=== PATIENT | male | born 1975 | race Caucasian/White ===

== ENCOUNTER 2018-06-12 22:10 | Observation (INO) ==
[2018-06-12] MEDS ORDERED: Ondansetron 4 MG/2 ML VIAL IVP ONE (22:28)
[2018-06-12] MEDS ORDERED: 0.9 % Sodium Chloride 1,000 ML IVC ONE (22:28)
[2018-06-12 22:57] LABS: Bilirubin,Urine Negative (Negative); Blood,Urine Negative (Negative); Clarity,Urine Clear (Clear); Color,Urine Yellow (Yellow); Glucose,Urine (UA) >=1000 mg/dL (Normal); Ketones,Urine 80 mg/dL (Negative); Leukocyte Esterase,Urine Negative (Negative); Nitrite,Urine Negative (Negative); PH,Urine 5.5 pH Units (5.0-8.0); Protein,Urine Trace mg/dL (Neg-Trace); Specific Gravity,Urine > 1.030 (1.010-1.025); Urobilinogen,Urine Normal (Normal)
[2018-06-12 22:59] LABS: Bacteria,Urine None Seen per hpf (None-Few); Hyaline Casts,Urine None Seen per lpf (None-Few); RBC,Urine 0-3 per hpf (0-3); Squamous Epithelial Cell,Urine Many per lpf (None-Few); WBC,Urine 0-3 per hpf (0-3)
[2018-06-12 23:01] LABS: Basophils % 0.2 %; Hematocrit 44.1 % (37.5-50.1); Hemoglobin 14.8 g/dL (12.9-16.9); Immature Granulocytes % 0.4 % (0-4); Mean Corpuscular HGB Conc 33.6 g/dL (31.6-35.5); Mean Corpuscular Hemoglobin 28.6 pg (28.0-33.3); Mean Corpuscular Volume 85.3 fL (83.0-100.0); Mean Platelet Volume 10.6 fL (9.4-12.4); Monocytes # 0.6 K/mcL (0.0-1.3); Monocytes % 3.9 %; Neutrophils # 12.5 K/mcL (1.6-8.9); Platelet Count 201 K/mcL (140-400); Red Blood Count 5.17 M/mcL (4.19-5.50); Red Cell Distribution Width 13.3 % (11.5-14.5); Segmented Neutrophils % 88.5 %
--- NOTE | 2018-06-12 23:12 | Emergency Department Note ---
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: with fpc use Qualified Code(s): E11.65 - Type 2 diabetes mellitus with hyperglycemia Nausea & vomiting Qualifiers: Vomiting type: unspecified Vomiting Intractability: unspecified Qualified Code( s): R11.2 - Nausea with vomiting, unspecified Abdominal pain Qualifiers: Abdominal location: unspecified location Qualified Code(s): R10.9 - Unspecified abdominal pain Disposition: Admitted As Inpatient Condition: Good Referrals: Lobo Tyler MD [Primary Care Provider] - Forms: ED Satisfaction Letter, Work/School Release Time of Disposition: 04:55 General Adult HPI - General Chief complaint: ED Abdominal Pain Stated complaint: NV Time Seen by Provider: 06/12/18 22:27 Source: patient, EMS Mode of arrival: EMS Limitations: no limitations Nursing Notes Reviewed: Yes Vital Signs Reviewed: Yes - History of Present Illness HPI Narrative: 42-year-old male history of insulin-dependent diabetes mellitus presents emergency department via EMS for nausea and vomiting. Patient states for the past 24 hours he has been very nauseated unable to keep anything down such as Jell-O. He had multiple episodes of vomiting after attempting to eat Jell-O. Today he has not been able keep anything down. Denies any fever cough or congestion. Denies any chest pain or shortness of breath. He is complaining of some sharp abdominal pain mostly in the epigastric region. He has not taken any insulin since yesterday afternoon. He denies any urinary symptoms. No prior abdominal surgeries Pain Scale: 7 - Related Data Home Medications Medication Instructions Recorded Confirmed Ergocalciferol (VITAMIN D2) 50,000 unit PO 2XW 08/07/15 09/15/16 [Vitamin D2 (50,000 UNIT)] Hypromellose [Artificial Tears] 1 drop BOTH EYES BID 08/07/15 09/15/16 Lisinopril [Zestril] 5 mg PO DAILY 08/07/15 09/15/16 Metformin HCl [Glucophage] 1,000 mg PO TID 08/07/15 09/15/16 Mupirocin [Bactroban Oint] 1 appl TP BID 08/07/15 09/15/16 Pioglitazone [Actos] 45 mg PO DAILY 08/07/15 09/15/16 Empagliflozin [Jardiance] 10 mg PO DAILY 05/12/16 09/15/16 Glimepiride [Amaryl] 4 mg PO BID 05/12/16 09/15/16 Insulin Lispro Protamin/Lispro 20 unit SQ BIDWM 05/12/16 09/15/16 [Humalog Mix 75-25 Kwikpen] TraZODone 50 mg PO HS 05/12/16 09/15/16 acetaZOLAMIDE [Diamox] 250 mg PO DAILY 05/12/16 09/15/16 Inulin/Chromium Picolinate [Fiber 1 - 2 each PO DAILY 09/15/16 09/15/16 Gummies] Lubiprostone [Amitiza] 1 cap PO BID 09/15/16 09/15/16 Simvastatin [Zocor] 10 mg PO DAILY 09/15/16 09/15/16 Previous Rx's Medication Instructions Recorded Clindamycin [Cleocin] 150 mg PO Q6HR #8 capsule 09/15/16 Hydrocodone/Acetaminophen [[place] 1 tab PO Q6H PRN #20 tab 09/15/16 5-325 Tablet] Phenazopyridine HCl [Pyridium] 200 mg PO TIDAC #10 tab 05/24/17 Allergies Allergy/AdvReac Type Severity Reaction Status Date / Time liraglutide [From Victoza] AdvReac Vomiting Verified 06/12/18 22:15 All systems ED: reviewed and negative except as stated. Review of Systems: As Per HPI Constitutional: Denies: fever, chills ENT ED: Denies: congestion Cardiovascular: Denies: chest pain Respiratory: Denies: cough, dyspnea Gastrointestinal: Reports: abdominal pain, nausea, vomiting Genitourinary: Denies: urgency, dysuria Musculoskeletal: Denies: back pain Integumentary: Denies: rash, abrasion Neurological: Denies: headache Past Medical History - Past Medical History Attestation: Yes The following information was validated with the patient. Source: patient Medical history: Reports: diabetes, hyperlipidemia, hypertension, other Surgical history: Reports: other Psychiatric history: Reports: no psych history - Social History Smoking Status: Never smoker Smokeless Tobacco Status: No Alcohol use: Reports: occasionally Drug use: Reports: none Physical Exam - General Limitations: physical limitation (Hard of hearing) General appearance: alert, in no apparent distress - Head Head exam: atraumatic, normocephalic, normal inspection - Eye Eye exam: Present: normal appearance, PERRL, EOMI - ENT ENT exam: normal exam, normal oropharynx, mucous membranes moist - Neck Neck exam: Present: normal inspection, full ROM, trachea midline - Chest Chest inspection: Present: normal inspection, symmetric chest wall rise - Respiratory Respiratory exam: Present: normal lung sounds bilaterally - Cardiovascular Cardiovascular exam: Present: normal rhythm, tachycardia, normal heart sounds - Abdominal Exam Abdominal exam: Present: soft, tenderness, normal bowel sounds. Absent: Non- Tender, distention, guarding, rebound, rigidity, Castrejon's sign Abdominal tenderness: Present: epigastrium. Absent: RUQ - Extremities Exam Extremities exam: Present: normal inspection, full ROM. Absent: tenderness, pedal edema - Back Exam Back exam: Present: normal inspection, full ROM. Absent: tenderness, CVA tenderness (R), CVA tenderness (L) - Neurological Exam Neurological exam: Present: alert, oriented X3 - Psychiatric Psychiatric exam: Present: normal affect, normal mood - Skin Skin exam: Present: warm, dry, intact, normal color. Absent: rash, cyanosis, diaphoresis Course Course Narrative: Patient presents with nausea vomiting and abdominal pain for past 4 hours. Unable to keep anything down recently. He is afebrile. Tachycardic on examination. He appears in mild distress spinning up water that he recently drank. His abdomen is soft and mildly tender in epigastric region but nondistended nonrigid. Denies alcohol use. Has not take his insulin in the past 24 hours. At this time laboratory evaluation with IV fluids and symptom control with Zofran. - Reevaluation(s) Reevaluation #1: Patient is hyperglycemic 433. There is no acidosis. Anionic gap is 12 a normal. There are ketones in the urine. He continues to be nauseated but has improved with the medications. His tachycardia is improving with fluids. Insulin administered. Will recheck his glucose. Patient is not in DKA at this moment. Will reevaluate the patient prior to final disposition. Time: 23:55 Reevaluation #2: Patients tolerating oral intake. He able to drink soda and eat Jell-O. Further evaluation shows elevated serum ketones. A VBG was also ordered with a pH of 7.35. This may be early findings of a mild diabetic ketoacidosis which he currently does not appear to be in at this time. He has received 2 L of normal saline in his nausea is improved with Zofran but remains tachycardic. His abdomen on repeat evaluation remain soft nondistended nonrigid. Leukocytosis on his laboratory workup is likely a stress response due to his vomiting. Will recheck glucose and heart rate after fluids. Time: 01:23 Reevaluation #3: Patient continues to be tachycardic despite fluid resuscitation. He does have some intermittent nausea. He has tolerated PO. A recheck of his glucose has come up to 339. Given that he lives at home by himself with the cute anemia and persistent tachycardia have recommended for observation and admission further management treatment. Patients in agreement with this plan. Time: 04:08 - Consultations Consultation #1: Spoke with on-call hospitalist mouna Guzman to admit for tachycardia, hyperglycemia, N/V. No further orders at this time Time: 04:55 Vital Signs Temperature 97.9 F 06/12/18 22:13 Pulse Rate 122 06/12/18 22:13 Respiratory Rate 14 06/12/18 22:13 Blood Pressure 142/92 06/12/18 22:13 O2 Sat by Pulse Oximetry 98 06/12/18 22:13 Temperature 97.9 F 06/12/18 22:13 Pulse Rate 113 06/13/18 02:37 Respiratory Rate 18 06/13/18 02:37 Blood Pressure 118/74 06/13/18 02:37 O2 Sat by Pulse Oximetry 95 06/13/18 02:37 Oxygen Delivery Oxygen Delivery Room Air Medical Decision Making - MDM Narrative Medical decision making narrative: Patient was discussed with my attending physician who agrees with ED management and final disposition. They independently evaluated the patient. Please refer to their attestation to this encounter for additional information. This note was generated by [employer] voice recognition software and as a result grammatical or spelling errors may occur using this program. - Medical Records Medical records reviewed: Yes I reviewed the patient's medical records. - Lab Data Lab results reviewed: Yes I reviewed the patient's lab results. Result diagrams: 06/12/18 22:28 06/12/18 22:28 Lab Results 06/12/18 06/12/18 06/12/18 Range/Units 22:28 22:28 22:37 WBC 14.1 H (4.3-11.1) K/mcL RBC 5.17 (4.19-5.50) M/mcL Hgb 14.8 (12.9-16.9) g/dL Hct 44.1 (37.5-50.1) % MCV 85.3 (83.0-100.0) fL MCH 28.6 (28.0-33.3) pg MCHC 33.6 (31.6-35.5) g/dL RDW 13.3 (11.5-14.5) % Plt Count 201 (140-400) K/mcL MPV 10.6 (9.4-12.4) fL Immature Gran % 0.4 (0-4) % Seg Neutrophils % 88.5 % Lymphocytes % 7.0 % Monocytes % 3.9 % Eosinophils % 0.0 % Basophils % 0.2 % Neutrophils # 12.5 H (1.6-8.9) K/mcL Lymphocytes # 1.0 (0.6-4.6) K/mcL Monocytes # 0.6 (0.0-1.3) K/mcL Eosinophils # 0.0 (0.0-0.6) K/mcL Basophils # 0.0 (0.0-0.2) K/mcL VBG pH (7.32-7.42) pH Units VBG pCO2 (41-51) mmHg VBG pO2 (25-50) mmHg VBG HCO3 (21-27) mEq/L Sodium 136 (136-145) mEq/L Potassium 4.7 (3.5-5.1) mEq/L Chloride 100 (98-107) mEq/L Carbon Dioxide 24 (23-29) mEq/L BUN 17 (6-20) mg/dL Creatinine 0.96 (0.70-1.30) mg/dL Est GFR ( Amer) > 60 (> 60) Est GFR (Non-Af Amer) > 60 (> 60) BUN/Creatinine Ratio 18 (6-26) Glucose 433 H (70-105) mg/dL Calculated Osmolality 302 H (280-300) Calcium 9.3 (8.6-10.3) mg/dL Total Bilirubin 0.7 (0.3-1.0) mg/dL AST 37 (13-39) Units/L ALT 39 (7-52) Units/L Alkaline Phosphatase 59 (34-104) Units/L Serum Total Protein 7.5 (6.4-8.9) g/dL Albumin 4.3 (3.5-5.7) g/dL Globulin 3.2 (2.4-3.5) g/dL Albumin/Globulin Ratio 1.3 (1.1-2.2) Lipase 22 (11-82) Units/L Beta-Hydroxybutyric Acd (0.02-0.27) mmol/L Urine Color Yellow (Yellow) Urine Clarity Clear (Clear) Urine pH 5.5 (5.0-8.0) pH Units Ur Specific [place] > 1.030 H (1.010-1.025) Urine Protein Trace (Neg-Trace) mg/dL Urine Glucose (UA) >=1000 H (Normal) mg/dL Urine Ketones 80 H (Negative) mg/dL Urine Blood Negative (Negative) Urine Nitrite Negative (Negative) Urine Bilirubin Negative (Negative) Urine Urobilinogen Normal (Normal) mg/dL Ur Leukocyte Esterase Negative (Negative) Urine Microscopic RBC 0-3 (0-3) per hpf Urine Microscopic WBC 0-3 (0-3) per hpf Ur Squamous Epith Cells Many H (None-Few) per lpf Urine Bacteria None Seen (None-Few) per hpf Hyaline Casts None Seen (None-Few) per lpf Ur Culture Indicated? NO (NO) 06/13/18 06/13/18 Range/Units 01:03 22:28 WBC (4.3-11.1) K/mcL RBC (4.19-5.50) M/mcL Hgb (12.9-16.9) g/dL Hct (37.5-50.1) % MCV (83.0-100.0) fL MCH (28.0-33.3) pg MCHC (31.6-35.5) g/dL RDW (11.5-14.5) % Plt Count (140-400) K/mcL MPV (9.4-12.4) fL Immature Gran % (0-4) % Seg Neutrophils % % Lymphocytes % % Monocytes % % Eosinophils % % Basophils % % Neutrophils # (1.6-8.9) K/mcL Lymphocytes # (0.6-4.6) K/mcL Monocytes # (0.0-1.3) K/mcL Eosinophils # (0.0-0.6) K/mcL Basophils # (0.0-0.2) K/mcL VBG pH 7.35 (7.32-7.42) pH Units VBG pCO2 47 (41-51) mmHg VBG pO2 94 H (25-50) mmHg VBG HCO3 26 (21-27) mEq/L Sodium (136-145) mEq/L Potassium (3.5-5.1) mEq/L Chloride (98-107) mEq/L Carbon Dioxide (23-29) mEq/L BUN (6-20) mg/dL Creatinine (0.70-1.30) mg/dL Est GFR ( Amer) (> 60) Est GFR (Non-Af Amer) (> 60) BUN/Creatinine Ratio (6-26) Glucose (70-105) mg/dL Calculated Osmolality (280-300) Calcium (8.6-10.3) mg/dL Total Bilirubin (0.3-1.0) mg/dL AST (13-39) Units/L ALT (7-52) Units/L Alkaline Phosphatase (34-104) Units/L Serum Total Protein (6.4-8.9) g/dL Albumin (3.5-5.7) g/dL Globulin (2.4-3.5) g/dL Albumin/Globulin Ratio (1.1-2.2) Lipase (11-82) Units/L Beta-Hydroxybutyric Acd > 2.00 H (0.02-0.27) mmol/L Urine Color (Yellow) Urine Clarity (Clear) Urine pH (5.0-8.0) pH Units Ur Specific [place] (1.010-1.025) Urine Protein (Neg-Trace) mg/dL Urine Glucose (UA) (Normal) mg/dL Urine Ketones (Negative) mg/dL Urine Blood (Negative) Urine Nitrite (Negative) Urine Bilirubin (Negative) Urine Urobilinogen (Normal) mg/dL Ur Leukocyte Esterase (Negative) Urine Microscopic RBC (0-3) per hpf Urine Microscopic WBC (0-3) per hpf Ur Squamous Epith Cells (None-Few) per lpf Urine Bacteria (None-Few) per hpf Hyaline Casts (None-Few) per lpf Ur Culture Indicated? (NO) - EKG Data EKG #1 EKG attestation: Yes I reviewed and interpreted this EKG. EKG results narrative: EKG performed 516 sinus tachycardia 115 beats per minute, normal axis, no ST elevation or depression, intervals within normal limits SD interval 157, QRS 81 , QT 299. No acute ischemic changes.
[2018-06-12 23:26] LABS: Alanine Aminotransferase 39 Units/L (7-52); Albumin 4.3 g/dL (3.5-5.7); Albumin/Globulin Ratio 1.3 (1.1-2.2); Alkaline Phosphatase 59 Units/L (34-104); Aspartate Amino Transferase 37 Units/L (13-39); BUN/Creatinine Ratio 18 (6-26); Bilirubin,Total 0.7 mg/dL (0.3-1.0); Blood Urea Nitrogen 17 mg/dL (6-20); Calcium 9.3 mg/dL (8.6-10.3); Carbon Dioxide 24 mEq/L (23-29); Chloride 100 mEq/L (98-107); Globulin 3.2 g/dL (2.4-3.5); Glucose 433 mg/dL (70-105); Lipase 22 Units/L (11-82); Osmolality,Calculated 302 (280-300); Potassium 4.7 mEq/L (3.5-5.1); Sodium 136 mEq/L (136-145); Total Protein 7.5 g/dL (6.4-8.9); eGFR For Non-African Americans > 60 (> 60)
[2018-06-12] MEDS ORDERED: Insulin Human Regular 10 UNIT in 0.9 % Sodium Chloride 10 ML IV ONE (23:43)
[2018-06-13] MEDS ORDERED: 0.9 % Sodium Chloride 1,000 ML ONE (00:43)
[2018-06-13] MEDS ORDERED: 0.9 % Sodium Chloride 1,000 ML IVC ONE ×2 (00:44→02:15)
[2018-06-13 01:06] LABS: VBG HCO3 26 mEq/L (21-27); VBG PCO2 47 mmHg (41-51); VBG PH 7.35 pH Units (7.32-7.42); VBG PO2 94 mmHg (25-50)
--- NOTE | 2018-06-13 01:51 | Emergency Department Note ---
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 Qualified Code(s): E11.65 - Type 2 diabetes mellitus with hyperglycemia Nausea & vomiting Qualifiers: Vomiting type: unspecified Vomiting Intractability: unspecified Qualified Code( s): R11.2 - Nausea with vomiting, unspecified Abdominal pain Qualifiers: Abdominal location: unspecified location Qualified Code(s): R10.9 - Unspecified abdominal pain Disposition: Admitted As Inpatient Condition: Good Referrals: Lobo Tyler MD [Primary Care Provider] - Forms: ED Satisfaction Letter, Work/School Release General Adult HPI - General Chief complaint: ED Abdominal Pain Stated complaint: NV Time Seen by Provider: 06/12/18 22:27 Source: patient, EMS Mode of arrival: EMS Limitations: physical limitation (Hard of hearing) Nursing Notes Reviewed: Yes Vital Signs Reviewed: Yes - History of Present Illness Pain Scale: 7 - Related Data Home Medications Medication Instructions Recorded Confirmed Ergocalciferol (VITAMIN D2) 50,000 unit PO 2XW 08/07/15 09/15/16 [Vitamin D2 (50,000 UNIT)] Hypromellose [Artificial Tears] 1 drop BOTH EYES BID 08/07/15 09/15/16 Lisinopril [Zestril] 5 mg PO DAILY 08/07/15 09/15/16 Metformin HCl [Glucophage] 1,000 mg PO TID 08/07/15 09/15/16 Mupirocin [Bactroban Oint] 1 appl TP BID 08/07/15 09/15/16 Pioglitazone [Actos] 45 mg PO DAILY 08/07/15 09/15/16 Empagliflozin [Jardiance] 10 mg PO DAILY 05/12/16 09/15/16 Glimepiride [Amaryl] 4 mg PO BID 05/12/16 09/15/16 Insulin Lispro Protamin/Lispro 20 unit SQ BIDWM 05/12/16 09/15/16 [Humalog Mix 75-25 Kwikpen] TraZODone 50 mg PO HS 05/12/16 09/15/16 acetaZOLAMIDE [Diamox] 250 mg PO DAILY 05/12/16 09/15/16 Inulin/Chromium Picolinate [Fiber 1 - 2 each PO DAILY 09/15/16 09/15/16 Gummies] Lubiprostone [Amitiza] 1 cap PO BID 09/15/16 09/15/16 Simvastatin [Zocor] 10 mg PO DAILY 09/15/16 09/15/16 Previous Rx's Medication Instructions Recorded Clindamycin [Cleocin] 150 mg PO Q6HR #8 capsule 09/15/16 Hydrocodone/Acetaminophen [[place] 1 tab PO Q6H PRN #20 tab 09/15/16 5-325 Tablet] Phenazopyridine HCl [Pyridium] 200 mg PO TIDAC #10 tab 05/24/17 Allergies Allergy/AdvReac Type Severity Reaction Status Date / Time liraglutide [From Victoza] AdvReac Vomiting Verified 06/12/18 22:15 Constitutional: Denies: fever, chills ENT ED: Denies: congestion Cardiovascular: Denies: chest pain Respiratory: Denies: cough, dyspnea Gastrointestinal: Reports: abdominal pain, nausea, vomiting Genitourinary: Denies: urgency, dysuria Musculoskeletal: Denies: back pain Integumentary: Denies: rash, abrasion Neurological: Denies: headache Past Medical History - Past Medical History Medical history: Reports: diabetes, hyperlipidemia, hypertension, other Surgical history: Reports: other Psychiatric history: Reports: no psych history - Social History Smoking Status: Never smoker Smokeless Tobacco Status: No Alcohol use: Reports: occasionally Drug use: Reports: none Physical Exam - General Limitations: physical limitation (Hard of hearing) General appearance: alert, in no apparent distress Course Vital Signs Temperature 97.9 F 06/12/18 22:13 Pulse Rate 122 06/12/18 22:13 Respiratory Rate 14 06/12/18 22:13 Blood Pressure 142/92 06/12/18 22:13 O2 Sat by Pulse Oximetry 98 06/12/18 22:13 Temperature 97.9 F 06/12/18 22:13 Pulse Rate 113 06/13/18 02:37 Respiratory Rate 18 06/13/18 02:37 Blood Pressure 118/74 06/13/18 02:37 O2 Sat by Pulse Oximetry 95 06/13/18 02:37 Oxygen Delivery Oxygen Delivery Room Air Medical Decision Making - Medical Records Medical records reviewed: Yes I reviewed the patient's medical records. - Lab Data Lab results reviewed: Yes I reviewed the patient's lab results. Result diagrams: 06/12/18 22:28 06/12/18 22:28 Lab Results 06/12/18 06/12/18 06/12/18 Range/Units 22:28 22:28 22:37 WBC 14.1 H (4.3-11.1) K/mcL RBC 5.17 (4.19-5.50) M/mcL Hgb 14.8 (12.9-16.9) g/dL Hct 44.1 (37.5-50.1) % MCV 85.3 (83.0-100.0) fL MCH 28.6 (28.0-33.3) pg MCHC 33.6 (31.6-35.5) g/dL RDW 13.3 (11.5-14.5) % Plt Count 201 (140-400) K/mcL MPV 10.6 (9.4-12.4) fL Immature Gran % 0.4 (0-4) % Seg Neutrophils % 88.5 % Lymphocytes % 7.0 % Monocytes % 3.9 % Eosinophils % 0.0 % Basophils % 0.2 % Neutrophils # 12.5 H (1.6-8.9) K/mcL Lymphocytes # 1.0 (0.6-4.6) K/mcL Monocytes # 0.6 (0.0-1.3) K/mcL Eosinophils # 0.0 (0.0-0.6) K/mcL Basophils # 0.0 (0.0-0.2) K/mcL VBG pH (7.32-7.42) pH Units VBG pCO2 (41-51) mmHg VBG pO2 (25-50) mmHg VBG HCO3 (21-27) mEq/L Sodium 136 (136-145) mEq/L Potassium 4.7 (3.5-5.1) mEq/L Chloride 100 (98-107) mEq/L Carbon Dioxide 24 (23-29) mEq/L BUN 17 (6-20) mg/dL Creatinine 0.96 (0.70-1.30) mg/dL Est GFR ( Amer) > 60 (> 60) Est GFR (Non-Af Amer) > 60 (> 60) BUN/Creatinine Ratio 18 (6-26) Glucose 433 H (70-105) mg/dL Calculated Osmolality 302 H (280-300) Calcium 9.3 (8.6-10.3) mg/dL Total Bilirubin 0.7 (0.3-1.0) mg/dL AST 37 (13-39) Units/L ALT 39 (7-52) Units/L Alkaline Phosphatase 59 (34-104) Units/L Serum Total Protein 7.5 (6.4-8.9) g/dL Albumin 4.3 (3.5-5.7) g/dL Globulin 3.2 (2.4-3.5) g/dL Albumin/Globulin Ratio 1.3 (1.1-2.2) Lipase 22 (11-82) Units/L Beta-Hydroxybutyric Acd (0.02-0.27) mmol/L Urine Color Yellow (Yellow) Urine Clarity Clear (Clear) Urine pH 5.5 (5.0-8.0) pH Units Ur Specific [place] > 1.030 H (1.010-1.025) Urine Protein Trace (Neg-Trace) mg/dL Urine Glucose (UA) >=1000 H (Normal) mg/dL Urine Ketones 80 H (Negative) mg/dL Urine Blood Negative (Negative) Urine Nitrite Negative (Negative) Urine Bilirubin Negative (Negative) Urine Urobilinogen Normal (Normal) mg/dL Ur Leukocyte Esterase Negative (Negative) Urine Microscopic RBC 0-3 (0-3) per hpf Urine Microscopic WBC 0-3 (0-3) per hpf Ur Squamous Epith Cells Many H (None-Few) per lpf Urine Bacteria None Seen (None-Few) per hpf Hyaline Casts None Seen (None-Few) per lpf Ur Culture Indicated? NO (NO) 06/13/18 06/13/18 Range/Units 01:03 22:28 WBC (4.3-11.1) K/mcL RBC (4.19-5.50) M/mcL Hgb (12.9-16.9) g/dL Hct (37.5-50.1) % MCV (83.0-100.0) fL MCH (28.0-33.3) pg MCHC (31.6-35.5) g/dL RDW (11.5-14.5) % Plt Count (140-400) K/mcL MPV (9.4-12.4) fL Immature Gran % (0-4) % Seg Neutrophils % % Lymphocytes % % Monocytes % % Eosinophils % % Basophils % % Neutrophils # (1.6-8.9) K/mcL Lymphocytes # (0.6-4.6) K/mcL Monocytes # (0.0-1.3) K/mcL Eosinophils # (0.0-0.6) K/mcL Basophils # (0.0-0.2) K/mcL VBG pH 7.35 (7.32-7.42) pH Units VBG pCO2 47 (41-51) mmHg VBG pO2 94 H (25-50) mmHg VBG HCO3 26 (21-27) mEq/L Sodium (136-145) mEq/L Potassium (3.5-5.1) mEq/L Chloride (98-107) mEq/L Carbon Dioxide (23-29) mEq/L BUN (6-20) mg/dL Creatinine (0.70-1.30) mg/dL Est GFR ( Amer) (> 60) Est GFR (Non-Af Amer) (> 60) BUN/Creatinine Ratio (6-26) Glucose (70-105) mg/dL Calculated Osmolality (280-300) Calcium (8.6-10.3) mg/dL Total Bilirubin (0.3-1.0) mg/dL AST (13-39) Units/L ALT (7-52) Units/L Alkaline Phosphatase (34-104) Units/L Serum Total Protein (6.4-8.9) g/dL Albumin (3.5-5.7) g/dL Globulin (2.4-3.5) g/dL Albumin/Globulin Ratio (1.1-2.2) Lipase (11-82) Units/L Beta-Hydroxybutyric Acd > 2.00 H (0.02-0.27) mmol/L Urine Color (Yellow) Urine Clarity (Clear) Urine pH (5.0-8.0) pH Units Ur Specific [place] (1.010-1.025) Urine Protein (Neg-Trace) mg/dL Urine Glucose (UA) (Normal) mg/dL Urine Ketones (Negative) mg/dL Urine Blood (Negative) Urine Nitrite (Negative) Urine Bilirubin (Negative) Urine Urobilinogen (Normal) mg/dL Ur Leukocyte Esterase (Negative) Urine Microscopic RBC (0-3) per hpf Urine Microscopic WBC (0-3) per hpf Ur Squamous Epith Cells (None-Few) per lpf Urine Bacteria (None-Few) per hpf Hyaline Casts (None-Few) per lpf Ur Culture Indicated? (NO) - EKG Data EKG #1 EKG attestation: Yes I reviewed and interpreted this EKG. EKG results narrative: EKG shows a sinus tachycardia with ventricular rate of 1:15. No acute ST segment elevation or depression. No arrhythmia or ectopy. Attestation Statement - Attestation Attestation: I, Don Tamayo MD, personally evaluated this patient and discussed their management with the resident physician. I reviewed the resident's note and agree with the documented findings, medical decision making, and plan of care. 42-year-old male with type 2 insulin-dependent diabetes presents to the emergency department with a 24-hour history of nausea and vomiting and epigastric abdominal pain. No diarrhea. No fever. No melena, hematemesis, or hematochezia. No difficulty with urination. No increased urinary frequency or urinary retention. No dysuria or gross hematuria. On examination patient is a well-developed well-nourished male in no acute distress. He is alert and oriented. There is no cyanosis or diaphoresis. Breath sounds are clear and equal bilaterally. Heart regular with a moderate tachycardia. Abdomen is soft with mild epigastric tenderness. Normal bowel sounds. No guarding or rebound tenderness. No palpable organomegaly or masses. No tympany or distention. Labs reviewed. Large serum ketones but not acidotic. Patient received 2 L of normal saline and 10 units regular insulin IV here in the emergency department. He received Zofran IV. Patient was able to eat a chest as well as eat 2 cups of Jell-O and has kept them down. Heart rate improving with IV fluids. We will continue to observe and reevaluate. Patient received a third liter fluid and continues to be tachycardic to about 115 to 120. The hospitalist, Dr. Griffith, was consulted and accepted admission of the patient.
[2018-06-13] MEDS ORDERED: Naloxone 0.4 MG/ML INJ IVP PRN (05:55)
[2018-06-13] MEDS ORDERED: D5% in Water 1,000 ML IVC PRN (06:08)
[2018-06-13] MEDS ORDERED: *HR* Dextrose 50 % in Water (Syg) 50 ML SYRINGE IVP PRN (06:08)
[2018-06-13] MEDS ORDERED: Dextrose Gel 15 GM/37.5 ML TUBE PO PRN ×2 (06:08)
--- NOTE | 2018-06-13 06:15 | Internal Med History&Physical ---
Date of Encounter: 06/13/18 Time of Encounter: 06:12 Internal Medicine - H&P: HPI Chief complaint: N/V Admitted From: Home Plans for Post Hospital Care: Home History of present illness: Mr. Byers is a 42 year old male presented wiht cc of N/V that started around midnight. Patient reported become woken up due to abdominal discomfort, nausea. Patient vomited 10 times at home and 2 times in the ER. Report was vomiting up dinner contents. He denied any blood in his vomit. he was unable to keep any food down in the ED Patient reports the morning before he did feel sick to stomach and some mild diffuse abdominal pain. He was found to be hyperglycemic with a glucose of 433. Patient reports his morning glucose yesterday was 174. Thereafter he had breakfast, lunch, dinner but because he did not feel he does not check his glucose levels or take any additional insulin. He is poorly controlled diabetic with the A1c of 11.5. Patient is insulin-dependent. Past Med Surg Social Fam HX - Past Medical History Medical history: diabetes, hyperlipidemia, hypertension, other Additional medical history: vitamin D deficiency, increased TSH, learning disability, decreased hearing, Psychiatric history: no psych history - Past Surgical History Surgical History: other Additional surgical history: ear surgery, right finger/right hand surgery external fixator, removal of external fixator/ right shoulder sx - Social History Smoking Status: Never smoker Smokeless Tobacco Status: No Alcohol use: occasionally Drug use: none - Family History Mother Living Status: Hx Family Cardiac Disorders: No Hx Family Respiratory Disorders: No Hx Family Cancer: No Hx Family GI Disorders: No Hx Family Endocrine Disorder: No Hx Family Neuromuscular Disorders: No Hx Family Neurologic Disorders: No Hx Family HEENT Disorders: No Hx Family Autoimmune Disorders: No Father Living Status: Still Living Hx Family Cardiac Disorders: No Hx Family Respiratory Disorders: No Hx Family Cancer: No Hx Family GI Disorders: No Hx Family Endocrine Disorder: No Hx Family Neuromuscular Disorders: No Hx Family Neurologic Disorders: No Hx Family HEENT Disorders: No Hx Family Autoimmune Disorders: No Internal Medicine - H&P: Meds Ergocalciferol (VITAMIN D2) [Vitamin D2 (50,000 UNIT)] 50,000 unit PO 2XW [History] Hypromellose [Artificial Tears] 1 drop BOTH EYES BID 08/07/15 [History] Lisinopril [Zestril] 5 mg PO DAILY 08/07/15 [History] Metformin HCl [Glucophage] 1,000 mg PO TID 08/07/15 [History] Mupirocin [Bactroban Oint] 1 appl TP BID 08/07/15 [History] Pioglitazone [Actos] 45 mg PO DAILY 08/07/15 [History] Empagliflozin [Jardiance] 10 mg PO DAILY 05/12/16 [History] Glimepiride [Amaryl] 4 mg PO BID 05/12/16 [History] Insulin Lispro Protamin/Lispro [Humalog Mix 75-25 Kwikpen] 20 unit SQ BIDWM 08/17 [History] TraZODone 50 mg PO HS 05/12/16 [History] acetaZOLAMIDE [Diamox] 250 mg PO DAILY 05/12/16 [History] Clindamycin [Cleocin] 150 mg PO Q6HR #8 capsule 09/15/16 [Rx] Hydrocodone/Acetaminophen [[place] 5-325 Tablet] 1 tab PO Q6H PRN #20 tab [Rx] Inulin/Chromium Picolinate [Fiber Gummies] 1 - 2 each PO DAILY 09/15/16 [History ] Lubiprostone [Amitiza] 1 cap PO BID 09/15/16 [History] Simvastatin [Zocor] 10 mg PO DAILY 09/15/16 [History] Phenazopyridine HCl [Pyridium] 200 mg PO TIDAC #10 tab 05/24/17 [Rx] 3 Allergy/AdvReac Type Severity Reaction Status Date / Time liraglutide [From Victoza] AdvReac Vomiting Verified 06/12/18 22:15 All Systems PM: A 10-system review of systems was performed and is negative for pertinent findings except as documented above in the HPI. Review of systems: Constitutional: Denies fever, chills HEENT: Denies headache, trauma, blurry vision, eye discharge, ear pain, ear discharge neck pain, sore throat, rhinorrhea Heart: Denies chest pain palpitations, LE edema Lungs: Denies shortness of breath cough Abdomen: Reports abdominal pain, nausea, vomiting. Denies diarrhea MSK: Denies back pain, falls, joint pain Kidney: Denies dysuria, hematuria Skin: Denies rash, ulcers Neuro: Denies numbness and tingling Psych: denies axniety, depression - Constitutional Vitals: Temp Pulse Resp BP Pulse Ox 97.9 F 120 18 110/64 95 06/12/18 22:13 06/13/18 06:07 06/13/18 06:07 06/13/18 06:07 06/13/18 06:07 Exam: General: pleasant, without distress HEENT: Head atraumatic, normocephalic, EOMI, PERRL, absent ear discharge or trauma, Moist Mucous Membranes, uvula midline. difficulty hearing b/l. Neck: nontender to palpation, absent lymphadenopathy, Cardiovascualr: tacycardic with no murmur, absent gallops or rubs, absent pedal edema, radial pulses 2 out of 4 Lungs: Clear to auscultation bilaterally, not in respiratory distress Abdomen: Soft nontender, nondistended positive bowel sounds, absent hepatomegaly Skin: warm and dry, absent rash, absent open wounds and nodules MSK: absent clubbing, cyanosis, joints without swelling Neuro: Cranial nerves II through XII intact, UE and LE sensation equal bilaterally, UE and LEstrength 5/5, alert oriented 3, Psych: good insight and judgment, Internal Med - H&P Results - Labs CBC & Chem 7: 06/12/18 22:28 06/12/18 22:28 - Assessment and plan (1) Hyperglycemia Current Visit: Yes Status: Acute Assessment and plan: 42 y/o patient presented with hyperglycemia had 12 bouts of vomitting glucose was 433 on admission Gap 12 ph 7.35 urinalysis showed glucose >400 patient had poorly controlled diabetes: noncompliant given IV insulin by ED glucose now 234 zofran prn for nausea plan: ACHS accuchecks, diabetic diet. (2) Tachycardia Current Visit: Yes Status: Acute Assessment and plan: patient presented with HR >120s etiology unknown could be 2nd to dehydration form N/V, possible arrythmia, no signs of infection (lungs clear, urinalysis negative for infection, skin without erythema, swelling, afebrile) given 3L NS in ER EKG pending UDS pending (3) Uncontrolled type II diabetes mellitus Current Visit: Yes Status: Chronic Assessment and plan: hx of DM2 insulin dependent not controlled last A1c 12/17 was 11% very non-compliant will start patient on home dose insulin ACHS accuchecks diabetic diet. recheck A1c Qualifiers: Glycemic state: with hyperglycemia Qualified Code(s): E11.65 - Type 2 diabetes mellitus with hyperglycemia (4) Hypertension Current Visit: Yes Status: Chronic Assessment and plan: hx of htn controlled continue lisinopril Qualifiers: Hypertension type: essential hypertension Qualified Code(s): I10 - Essential (primary) hypertension (5) Hyperlipidemia Current Visit: Yes Status: Chronic Assessment and plan: hx of hld continue simvastatin Qualifiers: Hyperlipidemia type: pure hypercholesterolemia Qualified Code(s): E78.00 - Pure hypercholesterolemia, unspecified; E78.0 - Pure hypercholesterolemia (6) DVT prophylaxis Current Visit: Yes Status: Acute Assessment and plan: ambulate TID - Time Spent With Patient Total time spent is greater than 50% in coordination of care (as documented) at patient's floor/unit and/or counseling patient:
[2018-06-13] MEDS ORDERED: Ondansetron 4 MG/2 ML VIAL IVP PRN (06:20)
[2018-06-13] MEDS: Insulin LISPRO 300 UNITS/3 ML VIAL SQ SCH ×3 (08:02→18:07)
[2018-06-13] MEDS: Insulin DETEMIR 100 UNIT/ML X5UNITS SQ SCH ×2 (08:15→22:36)
--- NOTE | 2018-06-13 08:41 | Event Note ---
Date of Encounter: 06/13/18 Time of Encounter: 08:31 Patient seen and examined at bedside. Patient no acute overnight events. H&P reviewed and agreed with assessment and plan with the addition of the below information. Patient has been given his home insulin regimen. Patient continues to be tachycardic and was febrile as morning. Upon examination patient had left diabetic foot ulcer that was present on admission that appears to be stage II, there is also surrounding erythema, concern for infection. Patient states that he feels improved however still has some nausea. PE General: NAD, sitting up eating breakfast Neck: supple Cardio: Tachycardic, no M/R/G Respiratory: non labored, CTAB Abd: soft, NT/ND, BS positive, no g/r/r Ext: no c/c/e, left 5th toe with lateral ulceration with surrounding erythema, no crepitus A/P: Diabetes Mellitus with Hyperglycemia and mild DKA as evidenced by elevated beta- hydroxybutyric acid and ketones in urine -most likely due to non compliance however pt also with suspected gastroenteritis and cellulitis of left lower foot and diabetic foot ulcer -Received IV insulin in ED -BG improved -Continue lantus 24 bid and lispro 8units with meals -monitor accuchecs Sepsis with positive SIRS due to leukocytosis and tachycardia and fever with left diabetic foot ulcer infection with cellulitis; does not probe to bone; do not suspect osteomyelitis currently -Start IV Vancomycin -Blood Cultures -LR at 100ml/hr -wound care consult -gastroenteritis could be contributing as well Suspected Gastroenteritis -supportive care -IVF -antiemetics
[2018-06-13 08:58] LABS: Estimated Average Glucose 309 mg/dl; Hemoglobin A1C 12.4 %
[2018-06-13] MEDS: Ringers Solution, Lactated 1,000 ML IVC SCH ×2 (10:49→22:37)
[2018-06-13] MEDS: Acetaminophen 325 MG TABLET PO PRN ×2 (12:29→19:33)
--- NOTE | 2018-06-13 16:33 | Podiatry Consult Note ---
Date of Encounter: 06/13/18 Time of Encounter: 17:00 Assessment and Plan (1) Foot ulcer, left Current visit: No Status: Acute Full thickness diabetic ulceration of the plantar aspect of the left foot with associated celluitis Foul odor and drainage noted to wound Obtain wound cultures if not already done Blood cultures have been obtained and pending CT scan obtained and negative for abscess or osteomyelitis Wound care: apply betadine, maxsorb AG, 4x4 and kerlix Continue IV antibiotics - vancomycin at this time WBC 14 Afebrile Monitor vital signs temp 100.0 Will continue to monitor closely. Qualifiers: Non-pressure ulcer stage: with fat layer exposed Qualified Code(s): L97.522 - Non-pressure chronic ulcer of other part of left foot with fat layer exposed History of Present Illness HPI: Mr. Byers is a 42 year old male presented with cc of N/V that started around midnight. Patient reports he vomited multiple times before coming to ED. He was found to be hyperglycemic with a glucose of 433. Patient reports his morning glucose yesterday was 174. He is poorly controlled diabetic with the A1c of 11.5. Patient is insulin-dependent. He is followed per in the wound care center for ulceration of the left foot. He was last seen 2 weeks ago and at which time wound was noted to be improving and non infectious. Patient has allevyn in place to ulceration. CT was obtained of foot. Temp 100.0. WBC 14. Past Med Surg Social Fam HX - Past Medical History Medical history: diabetes, hyperlipidemia, hypertension, other Additional medical history: vitamin D deficiency, increased TSH, learning disability, decreased hearing, Psychiatric history: no psych history - Past Surgical History Surgical History: other Additional surgical history: ear surgery, right finger/right hand surgery external fixator, removal of external fixator/ right shoulder sx - Social History Smoking Status: Never smoker Smokeless Tobacco Status: No Alcohol use: occasionally Drug use: none - Family History Mother Living Status: Hx Family Cardiac Disorders: No Hx Family Respiratory Disorders: No Hx Family Cancer: No Hx Family GI Disorders: No Hx Family Endocrine Disorder: No Hx Family Neuromuscular Disorders: No Hx Family Neurologic Disorders: No Hx Family HEENT Disorders: No Hx Family Autoimmune Disorders: No Father Living Status: Still Living Hx Family Cardiac Disorders: No Hx Family Respiratory Disorders: No Hx Family Cancer: No Hx Family GI Disorders: No Hx Family Endocrine Disorder: No Hx Family Neuromuscular Disorders: No Hx Family Neurologic Disorders: No Hx Family HEENT Disorders: No Hx Family Autoimmune Disorders: No Medications and Allergies Ergocalciferol (VITAMIN D2) [Vitamin D2 (50,000 UNIT)] 50,000 unit PO 2XW [History] Lisinopril [Zestril] 5 mg PO DAILY 08/07/15 [History] Metformin HCl [Glucophage] 1,000 mg PO TID 08/07/15 [History] Pioglitazone [Actos] 45 mg PO DAILY 08/07/15 [History] Empagliflozin [Jardiance] 10 mg PO DAILY 05/12/16 [History] Glimepiride [Amaryl] 4 mg PO BID 05/12/16 [History] TraZODone 50 - 100 mg PO HS 05/12/16 [History] Inulin/Chromium Picolinate [Fiber Gummies] 1 - 2 each PO DAILY 09/15/16 [History ] Simvastatin [Zocor] 10 mg PO DAILY 09/15/16 [History] Insulin Glargine,Hum.rec.anlog [[place] Kwikpen U-100] 24 unit SQ BID 06/13/18 [History] Insulin LISPRO [Humalog Kwikpen U-100] 8 unit SQ TID 06/13/18 [History] Torsemide [Demadex] 10 mg PO DAILY 06/13/18 [History] 3 Allergy/AdvReac Type Severity Reaction Status Date / Time liraglutide [From Victoza] AdvReac Vomiting Verified 06/12/18 22:15 All Systems Reviewed: as per HPI Physical Exam - Constitutional Vitals: Temp Pulse Resp BP Pulse Ox 98.4 F 115 17 106/73 95 06/13/18 15:59 06/13/18 15:59 06/13/18 15:59 06/13/18 15:59 06/13/18 15:59 Exam: General Examination: CONSTITUTIONAL: Alert, oriented, in no acute distress, non-toxic. MCGRATH EXTREMITIES: CFT 3 seconds all toes. Edema +1 and pedal pulses palpable. SKIN: Skin with decreased turgor, decreased subcutaneous tissue, skin thin and shiny with trophic changes associated with comorbidities as described in history.. ULCER: Full thickness ulceration to the lateral plantar aspect of the left foot measuring 2.1uvx5vm5.3cm with a small amount of surrounding hyperkeratosis, 100 % healthy granulation tissue to base and no probe to bone. Moderate amount of thick yellow drainage noted. Foul odor. Mild surrounding edema, erythema and warmth to wound. No sinus tracts or tunneling. No ascending cellulitis. NEUROLOGIC: Diminished sensation to light touch. Pain with palpation of ulceration. . Results - Labs Result Diagrams: 06/14/18 04:16 06/14/18 04:16 Labs: Abnormal lab results WBC 14.1 K/mcL (4.3-11.1) H 06/12/18 22:28 Neutrophils # 12.5 K/mcL (1.6-8.9) H 06/12/18 22:28 VBG pO2 94 mmHg (25-50) H 06/13/18 01:03 Glucose 433 mg/dL (70-105) H 06/12/18 22:28 POC Glucose 234 mg/dL (70-99) H 06/13/18 06:06 Hemoglobin A1c 12.4 % (-5.6) H 06/12/18 22:28 Calculated Osmolality 302 (280-300) H 06/12/18 22:28 Beta-Hydroxybutyric Acd > 2.00 mmol/L (0.02-0.27) H 06/13/18 22:28 Ur Specific [place] > 1.030 (1.010-1.025) H 06/12/18 22:37 Urine Glucose (UA) >=1000 mg/dL (Normal) H 06/12/18 22:37 Urine Ketones 80 mg/dL (Negative) H 06/12/18 22:37 Ur Squamous Epith Cells Many per lpf (None-Few) H 06/12/18 22:37 All other labs normal. Consult Discharge Plan - Plan Referrals: Lobo Tyler MD [Primary Care Provider] -
--- NOTE | 2018-06-13 17:40 | Electrocardiograph Report ---
[address] [address] Test Date: 2018-06-13 Pat Name: Tee Byers Department: [id number] Room: 2A16 Gender: M [place] Technician: : 1975 Requested By: Derian Cohn Order Number: [id number] Reading MD: Harry Ignacio Measurements Intervals [place] Rate: 115 P: 48 MA: 157 QRS: 23 QRSD: 81 T: 28 QT: 299 QTc: 414 Interpretive Statements Sinus tachycardia Low voltage, precordial leads Electronically Signed On 06-13-2018 17:39:07 EDT by Harry Ignacio
[2018-06-13] MEDS: traZODone 50 MG TABLET PO SCH (20:00)
[2018-06-14 05:01] LABS: Basophils % 0.2 %; Eosinophils % 0.1 %; Hematocrit 35.2 % (37.5-50.1); Immature Granulocytes % 0.4 % (0-4); Lymphocytes # 2.2 K/mcL (0.6-4.6); Lymphocytes % 25.5 %; Mean Corpuscular HGB Conc 33.5 g/dL (31.6-35.5); Mean Corpuscular Hemoglobin 28.7 pg (28.0-33.3); Mean Corpuscular Volume 85.6 fL (83.0-100.0); Mean Platelet Volume 10.7 fL (9.4-12.4); Monocytes # 0.9 K/mcL (0.0-1.3); Monocytes % 10.8 %; Neutrophils # 5.4 K/mcL (1.6-8.9); Platelet Count 164 K/mcL (140-400); Red Blood Count 4.11 M/mcL (4.19-5.50); Red Cell Distribution Width 13.4 % (11.5-14.5)
[2018-06-14 05:09] LABS: Hemoglobin 11.8 g/dL (12.9-16.9)
[2018-06-14 05:24] LABS: BUN/Creatinine Ratio 16 (6-26); Blood Urea Nitrogen 12 mg/dL (6-20); Calcium 8.6 mg/dL (8.6-10.3); Carbon Dioxide 24 mEq/L (23-29); Chloride 105 mEq/L (98-107); Glucose 138 mg/dL (70-105); Magnesium 1.8 mg/dL (1.6-2.6); Osmolality,Calculated 286 (280-300); Phosphorous 2.4 mg/dL (2.7-4.5); Potassium 3.5 mEq/L (3.5-5.1); Sodium 137 mEq/L (136-145); eGFR For Non-African Americans > 60 (> 60)
[2018-06-14] MEDS: Insulin LISPRO 300 UNITS/3 ML VIAL SQ SCH ×3 (08:22→17:41)
[2018-06-14] MEDS: Ampicillin/Sulbactam 3,000 MG in 0.9 % Sodium Chloride Mini Bag 100 ML IVPB SCH ×3 (08:33→17:41)
[2018-06-14] MEDS: Insulin DETEMIR 100 UNIT/ML X5UNITS SQ SCH ×2 (08:33→22:32)
[2018-06-14] MEDS: Ringers Solution, Lactated 1,000 ML IVC SCH ×2 (08:34→21:56)
--- NOTE | 2018-06-14 08:37 | Internal Med Progress Note ---
Hospitalist Progress Note - Encounter Date of Encounter: 06/14/18 Time of Encounter: 08:35 - Subjective Interval History: Patient seen and examined at bedside. Patient in no acute overnight events. Patient remains febrile. Patient seen by podiatry yesterday who agreed with infected diabetic foot ulcer with cellulitis. Wound cultures ordered. Blood sugar controlled. Denies chest pain denies shortness of breath, nausea, vomiting, diarrhea. - Exam Vitals: Temp Pulse Resp BP Pulse Ox 99.1 F 106 17 108/65 93 06/14/18 07:05 06/14/18 07:05 06/14/18 07:05 06/14/18 07:05 06/14/18 07:05 Exam: Constitutional: No acute distress, Alert Psych: AAO x 3 HEENT: NCAT, EOMI Neck: supple, no JVD Cardio: regular rate and rhythm, +s1s2, no murmurs/rubs/gallops, no JVD Resp: clear to ascultation bilaterally, no wheezes/rales/ronchi Abd: soft, non tender/non distended, positive bowel sounds, no gaurding/reboud/ ridgitity Extremities: left lateral 5th metarsal ulceration with purulent drainage, more bloody today, surrounding erythema similar to yesterday, may be slightly improved Neuro: no focal deficits appreciated - Assessment and Plan (1) Sepsis Current Visit: Yes Status: Acute Assessment and Plan: Pt with fever, tachycardia, and leukocytosis meeting sepsis criteria with left foot cellulitis with infected diabetic ulcer -Continue Vanco, add unasyn -Podiatry following -HR improving with IVF, will continue -Monitor blood cultures, NGTD -Follow would cultures per podiatry -would care per podiatry -leukocytosis resovled (2) Diabetic foot ulcer Current Visit: Yes Status: Acute Assessment and Plan: Left diabetic foot ulcer with purulent drainage and surrounding erythema consistent with cellulitis -see sepsis above -Podiatry following -continue vanco and add unasyn pending cultures -follow cultures -would care (3) Uncontrolled type II diabetes mellitus Current Visit: Yes Status: Chronic Assessment and Plan: hx of DM2 insulin dependent not controlled with hyperglycemia over 400 on admission presented with mild DKA that is resolved; likely precipitated by sepsis last A1c 12/17 was 11% suspected non compliance continue patient on home dose insulin ACHS accuchecks diabetic diet (4) Tachycardia Current Visit: Yes Status: Acute Assessment and Plan: -secondary to sepsis, see above -improving (5) Hypertension Current Visit: Yes Status: Chronic Assessment and Plan: hx of htn controlled continue lisinopril (6) Hyperlipidemia Current Visit: Yes Status: Chronic Assessment and Plan: hx of hld continue simvastatin (7) DVT prophylaxis Current Visit: Yes Status: Acute Assessment and Plan: hep sq DVT Prophylaxis: hep sq - Time Spent with Patient Total time spent is greater than 50% in coordination of care (as documented) at patient's floor/unit and/or counseling patient: 25 - 35 minutes Plan of Care Discussed with: patient Internal Medicine: Result - Labs CBC & Chem 7: 06/14/18 04:16 06/14/18 04:16 Labs: Short CBC 06/14/18 Range/Units 04:16 WBC 8.5 (4.3-11.1) K/mcL Hgb 11.8 L D (12.9-16.9) g/dL Hct 35.2 L (37.5-50.1) % Plt Count 164 (140-400) K/mcL Neutrophils # 5.4 (1.6-8.9) K/mcL BMP 06/14/18 04:16 Sodium 137 Potassium 3.5 Chloride 105 Carbon Dioxide 24 BUN 12 Creatinine 0.73 Glucose 138 H Calcium 8.6 - Impressions Impressions Foot CT 06/13/18 14:30 IMPRESSION: 1. No CT evidence of osteomyelitis or other acute osseous abnormality. 2. Shallow soft tissue ulceration adjacent to the 5th MTP joint with underlying subcutaneous fat stranding compatible with cellulitis. No drainable fluid collection identified. D/ / Harry Robertson MD / Harry Robertson MD Interpreting Provider: Harry Robertson MD Consult Discharge Plan - Plan Referrals: Lobo Tyler MD [Primary Care Provider] - (1) Sepsis Qualifiers: Sepsis type: sepsis due to unspecified organism Qualified Code(s): A41.9 - Sepsis, unspecified organism (2) Diabetic foot ulcer Qualifiers: Diabetic foot ulcer location: other Diabetes mellitus type: type 2 Laterality: left Non-pressure ulcer stage: with other severity Qualified Code( s): E11.621 - Type 2 diabetes mellitus with foot ulcer; L97.528 - Non-pressure chronic ulcer of other part of left foot with other specified severity (3) Uncontrolled type II diabetes mellitus Qualifiers: Glycemic state: with hyperglycemia Qualified Code(s): E11.65 - Type 2 diabetes mellitus with hyperglycemia (5) Hypertension Qualifiers: Hypertension type: essential hypertension Qualified Code(s): I10 - Essential (primary) hypertension (6) Hyperlipidemia Qualifiers: Hyperlipidemia type: pure hypercholesterolemia Qualified Code(s): E78.00 - Pure hypercholesterolemia, unspecified; E78.0 - Pure hypercholesterolemia
[2018-06-14 13:07] LABS: Amphetamine Screen,Urine Negative ng/mL (Cutoff=1000); Barbiturate Screen,Urine Negative ng/mL (Cutoff=200); Benzodiazepines Screen,Urine Negative ng/mL (Cutoff=200); Cannabinoid Screen,Urine Negative ng/mL (Cutoff = 50); Cocaine Screen,Urine Negative ng/mL (Cutoff= 300); Opiate Screen,Urine Negative ng/mL (Cutoff=300); Phencyclidine Screen,Urine Negative ng/mL (Cutoff=25)
[2018-06-14] MEDS: *HR* Heparin 5,000 UNIT/ML VIAL SQ SCH (17:41)
[2018-06-14] MEDS: traZODone 50 MG TABLET PO SCH (21:56)
[2018-06-15] MEDS: Ampicillin/Sulbactam 3,000 MG in 0.9 % Sodium Chloride Mini Bag 100 ML IVPB SCH ×4 (00:16→17:28)
[2018-06-15] MEDS: *HR* Heparin 5,000 UNIT/ML VIAL SQ SCH ×2 (05:43→17:28)
[2018-06-15] MEDS: Acetaminophen 325 MG TABLET PO PRN (06:31)
[2018-06-15 08:09] LABS: Basophils % 0.3 %; Eosinophils # 0.1 K/mcL (0.0-0.6); Eosinophils % 0.9 %; Hematocrit 34.4 % (37.5-50.1); Hemoglobin 11.5 g/dL (12.9-16.9); Immature Granulocytes % 0.3 % (0-4); Lymphocytes # 2.2 K/mcL (0.6-4.6); Lymphocytes % 33.4 %; Mean Corpuscular HGB Conc 33.4 g/dL (31.6-35.5); Mean Corpuscular Hemoglobin 28.8 pg (28.0-33.3); Mean Corpuscular Volume 86.2 fL (83.0-100.0); Mean Platelet Volume 10.4 fL (9.4-12.4); Monocytes # 0.7 K/mcL (0.0-1.3); Monocytes % 10.8 %; Neutrophils # 3.6 K/mcL (1.6-8.9); Platelet Count 170 K/mcL (140-400); Red Blood Count 3.99 M/mcL (4.19-5.50); Red Cell Distribution Width 13.2 % (11.5-14.5); Segmented Neutrophils % 54.3 %
--- NOTE | 2018-06-15 08:18 | Internal Med Progress Note ---
Hospitalist Progress Note - Encounter Date of Encounter: 06/15/18 Time of Encounter: 08:16 - Subjective Interval History: Patient seen and examined at bedside. Patient in no acute overnight events. Patient continues to be febrile. Patient very upset this morning that he has no endocarditis, trying to get in touch with family I told him we will try to assist him with this. Patient states that he continues to feel like he is having fevers denies chest pain, short of breath, nausea, vomiting, diarrhea. - Exam Vitals: Temp Pulse Resp BP Pulse Ox 98.7 F 93 17 116/76 97 06/15/18 07:12 06/15/18 07:12 06/15/18 07:12 06/15/18 07:12 06/15/18 07:12 Exam: Constitutional: No acute distress, Alert Psych: AAO x 3 HEENT: NCAT, EOMI Neck: supple, no JVD Cardio: tachycardic in 90s, +s1s2 Resp: clear to ascultation bilaterally Abd: soft, non tender/non distended, positive bowel sounds, no gaurding/reboud/ ridgitity Extremities: left lateral 5th metarsal ulceration with purulent drainage, surrounding erythema slightly improved from yesterday, continues to ooze blood Neuro: no focal deficits appreciated - Assessment and Plan (1) Sepsis Current Visit: Yes Status: Acute Assessment and Plan: Pt with fever, tachycardia, and leukocytosis meeting sepsis criteria with left foot cellulitis with infected diabetic ulcer -continues to be febrile -Continue Vanco, unasyn -Podiatry following -HR improving with IVF, will continue -Monitor blood cultures, NGTD -Follow wound cultures per podiatry; gram pos cocci currently -would care per podiatry -leukocytosis resovled (2) Diabetic foot ulcer Current Visit: Yes Status: Acute Assessment and Plan: Left diabetic foot ulcer with purulent drainage and surrounding erythema consistent with cellulitis -see sepsis above -Podiatry following -continue vanco and unasyn pending cultures -follow cultures, wound with gram positive cocci -would care (3) Uncontrolled type II diabetes mellitus Current Visit: Yes Status: Chronic Assessment and Plan: hx of DM2 insulin dependent not controlled with hyperglycemia over 400 on admission presented with mild DKA that is resolved; likely precipitated by sepsis last A1c 12/17 was 11% suspected non compliance continue patient on home dose insulin accuchecks improved ACHS accuchecks diabetic diet (4) Tachycardia Current Visit: Yes Status: Acute Assessment and Plan: -secondary to sepsis, see above -improving, continue ivf (5) Hypertension Current Visit: Yes Status: Chronic Assessment and Plan: hx of htn controlled continue lisinopril (6) Hyperlipidemia Current Visit: Yes Status: Chronic Assessment and Plan: hx of hld continue simvastatin (7) DVT prophylaxis Current Visit: Yes Status: Acute Assessment and Plan: hep sq DVT Prophylaxis: hep sq - Summary of Assessment and Plan Summary of Assessment and Plan: continue iv abx, follow cultures, podiatry recs - Time Spent with Patient Total time spent is greater than 50% in coordination of care (as documented) at patient's floor/unit and/or counseling patient: 25 - 35 minutes Plan of Care Discussed with: patient Internal Medicine: Result - Labs CBC & Chem 7: 06/15/18 07:39 06/14/18 04:16 Labs: Short CBC 06/15/18 Range/Units 07:39 WBC 6.6 (4.3-11.1) K/mcL Hgb 11.5 L (12.9-16.9) g/dL Hct 34.4 L (37.5-50.1) % Plt Count 170 (140-400) K/mcL Neutrophils # 3.6 (1.6-8.9) K/mcL Consult Discharge Plan - Plan Referrals: Lobo Tyler MD [Primary Care Provider] - (1) Sepsis Qualifiers: Sepsis type: sepsis due to unspecified organism Qualified Code(s): A41.9 - Sepsis, unspecified organism (2) Diabetic foot ulcer Qualifiers: Diabetic foot ulcer location: other Diabetes mellitus type: type 2 Laterality: left Non-pressure ulcer stage: with other severity Qualified Code( s): E11.621 - Type 2 diabetes mellitus with foot ulcer; L97.528 - Non-pressure chronic ulcer of other part of left foot with other specified severity (3) Uncontrolled type II diabetes mellitus Qualifiers: Glycemic state: with hyperglycemia Qualified Code(s): E11.65 - Type 2 diabetes mellitus with hyperglycemia (5) Hypertension Qualifiers: Hypertension type: essential hypertension Qualified Code(s): I10 - Essential (primary) hypertension (6) Hyperlipidemia Qualifiers: Hyperlipidemia type: pure hypercholesterolemia Qualified Code(s): E78.00 - Pure hypercholesterolemia, unspecified; E78.0 - Pure hypercholesterolemia
[2018-06-15 08:59] LABS: BUN/Creatinine Ratio 15 (6-26); Blood Urea Nitrogen 9 mg/dL (6-20); Calcium 8.5 mg/dL (8.6-10.3); Carbon Dioxide 26 mEq/L (23-29); Chloride 107 mEq/L (98-107); Glucose 98 mg/dL (70-105); Osmolality,Calculated 289 (280-300); Potassium 3.2 mEq/L (3.5-5.1); Sodium 140 mEq/L (136-145); eGFR For Non-African Americans > 60 (> 60)
[2018-06-15] MEDS: Insulin LISPRO 300 UNITS/3 ML VIAL SQ SCH ×3 (09:23→17:28)
[2018-06-15] MEDS: Ringers Solution, Lactated 1,000 ML IVC SCH ×4 (09:28→22:30)
[2018-06-15] MEDS: Insulin DETEMIR 100 UNIT/ML X5UNITS SQ SCH ×2 (09:28→22:08)
[2018-06-15] MEDS ORDERED: Aminoglycoside Consult 1 EACH MC ONE (11:52)
--- NOTE | 2018-06-15 18:05 | Podiatry Consult Note ---
Date of Encounter: 06/15/18 Time of Encounter: 17:30 Assessment and Plan (1) Type 2 diabetes mellitus with foot ulcer Current visit: No Status: Chronic Assessment: #1 Left foot with healing ulceration/Kowalski grade 2 ulcer distal lateral forefoot plantar aspect of the fifth MTPJ. #2 diabetes with peripheral sensory neuropathy and other comorbidities as outlined in history Plan: #1 degree with present antibiotic therapy would recommend outpatient antibiotic therapy broad-spectrum allowing cultures to guide to therapy #2 continue local wound care twice a day cleansing with soap and water applying appropriate dressings and use of a Darco flat healing shoe #3 return to wound care clinic within 7 days of discharge for ongoing care per Dr. Cavazos Qualifiers: Diabetes mellitus long term care administrator insulin use: with fdc use Qualified Code( s): E11.621 - Type 2 diabetes mellitus with foot ulcer; L97.509 - Non-pressure chronic ulcer of other part of unspecified foot with unspecified severity; Z79.4 - detention (current) use of insulin History of Present Illness Chief complaint: Left forefoot ulcer HPI: Mr. Byers is a 42 year old male, who is been receiving ongoing treatment in the given wound care clinic per Dr. Cavazos appropriately. Patient unfortunately has long history of uncontrolled diabetes which creates a difficult scenario to see a quick resolution to this persistent wound. Presently there is no evidence of active infection of this wound. No surrounding periwound edema erythema cellulitis lymphangitis odor purulence necrosis or fluctuance. He is receiving appropriate antibiotics and local wound care. He was impressed upon him today that diabetic control is essential to prevent catastrophic events in the future. Past Med Surg Social Fam HX - Past Medical History Medical history: diabetes, hyperlipidemia, hypertension, other Additional medical history: vitamin D deficiency, increased TSH, learning disability, decreased hearing, Psychiatric history: no psych history - Past Surgical History Surgical History: other Additional surgical history: ear surgery, right finger/right hand surgery external fixator, removal of external fixator/ right shoulder sx - Social History Smoking Status: Never smoker Smokeless Tobacco Status: No Alcohol use: occasionally Drug use: none - Family History Mother Living Status: Hx Family Cardiac Disorders: No Hx Family Respiratory Disorders: No Hx Family Cancer: No Hx Family GI Disorders: No Hx Family Endocrine Disorder: No Hx Family Neuromuscular Disorders: No Hx Family Neurologic Disorders: No Hx Family HEENT Disorders: No Hx Family Autoimmune Disorders: No Father Living Status: Still Living Hx Family Cardiac Disorders: No Hx Family Respiratory Disorders: No Hx Family Cancer: No Hx Family GI Disorders: No Hx Family Endocrine Disorder: No Hx Family Neuromuscular Disorders: No Hx Family Neurologic Disorders: No Hx Family HEENT Disorders: No Hx Family Autoimmune Disorders: No Medications and Allergies Ergocalciferol (VITAMIN D2) [Vitamin D2 (50,000 UNIT)] 50,000 unit PO 2XW [History] Lisinopril [Zestril] 5 mg PO DAILY 08/07/15 [History] Metformin HCl [Glucophage] 1,000 mg PO TID 08/07/15 [History] Pioglitazone [Actos] 45 mg PO DAILY 08/07/15 [History] Empagliflozin [Jardiance] 10 mg PO DAILY 05/12/16 [History] Glimepiride [Amaryl] 4 mg PO BID 05/12/16 [History] TraZODone 50 - 100 mg PO HS 05/12/16 [History] Inulin/Chromium Picolinate [Fiber Gummies] 1 - 2 each PO DAILY 09/15/16 [History ] Simvastatin [Zocor] 10 mg PO DAILY 09/15/16 [History] Insulin Glargine,Hum.rec.anlog [Basaglar Kwikpen U-100] 24 unit SQ BID 06/13/18 [History] Insulin LISPRO [Humalog Kwikpen U-100] 8 unit SQ TID 06/13/18 [History] Torsemide [Demadex] 10 mg PO DAILY 06/13/18 [History] 3 Allergy/AdvReac Type Severity Reaction Status Date / Time liraglutide [From Victoza] AdvReac Vomiting Verified 06/12/18 22:15 All Systems Reviewed: The remainder of the systems were reviewed and are negative Physical Exam - Constitutional Vitals: Temp Pulse Resp BP Pulse Ox 98.4 F 86 18 130/86 94 06/15/18 16:16 06/15/18 16:16 06/15/18 16:16 06/15/18 16:16 06/15/18 16:16 Results - Labs Result Diagrams: 06/15/18 07:39 06/15/18 07:39 Labs: Abnormal lab results RBC 3.99 M/mcL (4.19-5.50) L 06/15/18 07:39 Hgb 11.5 g/dL (12.9-16.9) L 06/15/18 07:39 Hct 34.4 % (37.5-50.1) L 06/15/18 07:39 VBG pO2 94 mmHg (25-50) H 06/13/18 01:03 Potassium 3.2 mEq/L (3.5-5.1) L 06/15/18 07:39 Creatinine 0.62 mg/dL (0.70-1.30) L 06/15/18 07:39 POC Glucose 288 mg/dL (70-99) H 06/15/18 11:21 Hemoglobin A1c 12.4 % (-5.6) H 06/12/18 22:28 Calcium 8.5 mg/dL (8.6-10.3) L 06/15/18 07:39 Phosphorus 2.4 mg/dL (2.7-4.5) L 06/14/18 04:16 Beta-Hydroxybutyric Acd > 2.00 mmol/L (0.02-0.27) H 06/13/18 22:28 Ur Specific [place] > 1.030 (1.010-1.025) H 06/12/18 22:37 Urine Glucose (UA) >=1000 mg/dL (Normal) H 06/12/18 22:37 Urine Ketones 80 mg/dL (Negative) H 06/12/18 22:37 Ur Squamous Epith Cells Many per lpf (None-Few) H 06/12/18 22:37 H & H 06/15/18 Range/Units 07:39 Hgb 11.5 L (12.9-16.9) g/dL Hct 34.4 L (37.5-50.1) % All other labs normal. Consult Discharge Plan - Plan Referrals: Lobo Tyler MD [Primary Care Provider] -
[2018-06-15] MEDS: traZODone 50 MG TABLET PO SCH (22:05)
[2018-06-16] MEDS: Ampicillin/Sulbactam 3,000 MG in 0.9 % Sodium Chloride Mini Bag 100 ML IVPB SCH ×2 (00:30→06:06)
[2018-06-16] MEDS: *HR* Heparin 5,000 UNIT/ML VIAL SQ SCH (06:06)
[2018-06-16 07:26] LABS: Basophils % 0.3 %; Eosinophils # 0.1 K/mcL (0.0-0.6); Eosinophils % 1.9 %; Hematocrit 36.2 % (37.5-50.1); Hemoglobin 11.9 g/dL (12.9-16.9); Immature Granulocytes % 0.3 % (0-4); Lymphocytes # 2.5 K/mcL (0.6-4.6); Lymphocytes % 39.8 %; Mean Corpuscular HGB Conc 32.9 g/dL (31.6-35.5); Mean Corpuscular Hemoglobin 28.3 pg (28.0-33.3); Mean Corpuscular Volume 86.2 fL (83.0-100.0); Mean Platelet Volume 10.4 fL (9.4-12.4); Monocytes # 0.5 K/mcL (0.0-1.3); Neutrophils # 3.2 K/mcL (1.6-8.9); Platelet Count 203 K/mcL (140-400); Red Cell Distribution Width 13.2 % (11.5-14.5); Segmented Neutrophils % 49.7 %
[2018-06-16 07:28] VITALS: BP 126/85
[2018-06-16 07:33] LABS: BUN/Creatinine Ratio 11 (6-26); Blood Urea Nitrogen 6 mg/dL (6-20); Calcium 8.8 mg/dL (8.6-10.3); Carbon Dioxide 23 mEq/L (23-29); Chloride 107 mEq/L (98-107); Glucose 89 mg/dL (70-105); Osmolality,Calculated 289 (280-300); Potassium 3.3 mEq/L (3.5-5.1); Sodium 141 mEq/L (136-145); eGFR For Non-African Americans > 60 (> 60)
[2018-06-16] MEDS: Insulin LISPRO 300 UNITS/3 ML VIAL SQ SCH (07:58)
--- NOTE | 2018-06-16 08:49 | Discharge Summary ---
- NOTES TO OUTPATIENT PROVIDER Notes to Outpatient Provider: Please follow-up with cultures that are currently pending growing gram-positive cocci;. Patient needs to follow-up with wound care clinic within [address] Bowman. Patient discharged on Bactrim twice a day for 7 additional days Orders not resulted at time of discharge: Pending orders 06/13/18 09:10 Culture,Blood [BC] Stat 06/13/18 18:14 Culture,Wound [RM] Routine 06/13/18 18:19 Culture,Anaerobic [RM] Routine Date of Encounter: 06/16/18 Time of Encounter: 08:46 - Discharge Diagnosis (1) Sepsis Priority: Primary Status: Acute Qualifiers: Sepsis type: sepsis due to unspecified organism Qualified Code(s): A41.9 - Sepsis, unspecified organism (2) Diabetic foot ulcer Priority: Secondary Status: Acute Qualifiers: Diabetic foot ulcer location: other Diabetes mellitus type: type 2 Laterality: left Non-pressure ulcer stage: with other severity Qualified Code(s): E11.621 - Type 2 diabetes mellitus with foot ulcer; L97.528 - Non- pressure chronic ulcer of other part of left foot with other specified severity (3) Uncontrolled type II diabetes mellitus Priority: Secondary Status: Chronic Qualifiers: Glycemic state: with hyperglycemia Qualified Code(s): E11.65 - Type 2 diabetes mellitus with hyperglycemia (4) Tachycardia Priority: Secondary Status: Acute (5) Hypertension Priority: Secondary Status: Chronic Qualifiers: Hypertension type: essential hypertension Qualified Code(s): I10 - Essential (primary) hypertension (6) Hyperlipidemia Priority: Secondary Status: Chronic Qualifiers: Hyperlipidemia type: pure hypercholesterolemia Qualified Code(s): E78.00 - Pure hypercholesterolemia, unspecified; E78.0 - Pure hypercholesterolemia (7) DVT prophylaxis Priority: Secondary Status: Acute Hospital course: Mr. Byers is a 42 year old male who presented with hyperglycemia and mild diabetic ketoacidosis. Patient was also noted to be septic started on IV antibiotics presumably from left foot foot ulcer and cellulitis. Patient's heart rate and leukocytosis improved throughout his stay as did his cellulitis to the point where erythema is now resolved and foot ulcer does not appear infected currently. Podiatry saw the patient and advised continued outpatient antibiotics will complete a ten-day course. Patient given a boot to wear to offload pressure from wound. Patient should follow up with wound care clinic within [address] Bowman. Encouraged compliance with diabetic regimen to prevent further morbidity. She very adamant about leaving today and looks much improved and has been afebrile for over 24 hours. We will discharge the patient on Bactrim for 7 additional days to complete a ten-day course; cultures are currently growing gram-positive cocci in his wound blood cultures have remained negative. Patient should follow up with primary care physician within one week and to follow up on culture results; Bactrim chosen to cover MRSA. Patient stable condition and agreeable to discharge, instructed to return to the ED or call his primary care physician for any worsening of symptoms or any return of fever. Patient states he understands and will be discharged back to his assisted living facility today. Discharge discussed with: patient, nurse - Time Spent with Patient Total time spent providing and/or coordinating discharge services: Greater than 30 minutes - Discharge Medications Prescriptions: Sulfamethoxazole/Trimeth DS [Bactrim DS] 1 each PO BID 7 Days #13 tablet Home Medications: Ergocalciferol (VITAMIN D2) [Vitamin D2 (50,000 UNIT)] 50,000 unit PO 2XW [History] Lisinopril [Zestril] 5 mg PO DAILY 08/07/15 [History] Metformin HCl [Glucophage] 1,000 mg PO TID 08/07/15 [History] Pioglitazone [Actos] 45 mg PO DAILY 08/07/15 [History] Empagliflozin [Jardiance] 10 mg PO DAILY 05/12/16 [History] Glimepiride [Amaryl] 4 mg PO BID 05/12/16 [History] TraZODone 50 - 100 mg PO HS 05/12/16 [History] Inulin/Chromium Picolinate [Fiber Gummies] 1 - 2 each PO DAILY 09/15/16 [History ] Simvastatin [Zocor] 10 mg PO DAILY 09/15/16 [History] Insulin Glargine,Hum.rec.anlog [Basaglar Kwikpen U-100] 24 unit SQ BID 06/13/18 [History] Insulin LISPRO [Humalog Kwikpen U-100] 8 unit SQ TID 06/13/18 [History] Sulfamethoxazole/Trimeth DS [Bactrim DS] 1 each PO BID 7 Days #13 tablet [Rx] Allergies/Adverse Reactions: 3 Allergy/AdvReac Type Severity Reaction Status Date / Time liraglutide [From Victoza] AdvReac Vomiting Verified 06/12/18 22:15 Date of admission: 06/13/18 05:59 Primary care physician: Lobo Tyler MD Consults: 06/13/18 08:28 Consult to Wound Care [CONS] Routine Reason for Consult: left 5th toe diabetic ulceration Call Completed: No 06/13/18 12:08 Consult to Podiatry [CONS] Routine Consulting Provider: Podiatry [facility] Reason for Consult: eval for diabetic foot ulcer/possible osteo Call Completed: Yes - Constitutional Vitals: Temp Pulse Resp BP Pulse Ox 98.9 F 94 16 126/85 95 06/16/18 07:27 06/16/18 07:27 06/16/18 07:27 06/16/18 07:27 06/16/18 07:27 Exam: Constitutional: No acute distress, Alert Psych: AAO x 3 HEENT: NCAT, EOMI Neck: supple, no JVD Cardio: s1s2, no murmurs Resp: clear to ascultation bilaterally Abd: soft, non tender/non distended Extremities: left lateral 5th metarsal ulceration, no drainage today, surruounding erythema nearly resolved, no crepitus Neuro: no focal deficits appreciated - Patient Status Disposition: Home, Self-Care Condition: Good Functional capacity at discharge: independent ambulation Overall status at discharge: patient is progressing back to baseline - Discharge Instructions Instructions: Diabetic Foot Care (DC) Follow Up With: Lobo Tyler MD [Primary Care Provider] - Additional Instructions: follow up with wound care clinic within one week - Diet and Activity Activity: increase activity as tolerated, other (wear boot on left foot and avoid pressure to wound)
[2018-06-16] MEDS: Insulin DETEMIR 100 UNIT/ML X5UNITS SQ SCH (09:14)
== END 2018-06-16 11:53 | disposition home or self-care (01) ==
LOC: 2ANU 22:10 → EMEROOARM 22:10 → 2ANU 06-13 06:23
PROVIDERS: ADMIT Family Medicine; ATTEND Family Medicine

== ENCOUNTER 2019-06-12 10:38 | Observation (INO) ==
--- NOTE | 2019-06-12 11:45 | Emergency Department Note ---
Disposition Clinical Impression: Foot infection Disposition: Admitted As Inpatient Condition: Fair Time of Disposition: 13:09 General Adult HPI - General Chief complaint: ED General Medical Stated complaint: Wants admitted Time Seen by Provider: 06/12/19 10:52 Source: patient Mode of arrival: ambulatory Limitations: no limitations Nursing Notes Reviewed: Yes Vital Signs Reviewed: Yes - History of Present Illness HPI Narrative: Patient is a 43-year-old male with past medical history of type 2 diabetes insulin-dependent, HTN, and learning as well as hearing disability presents to the ED for admission for IV antibiotics and surgical debridement of his left foot due to osteomyelitis. Patient follows along with podiatry outpatient he states over the past year he has been having issues with an ulcer on the plantar aspect of his foot is been getting treatment with antibiotics outpatient is currently on doxycycline which is had 7 days of. He is seen by his manager air on June 07 which she was evaluated and they also reviewed a foot x-ray in which the recommended treatment was debridement. The patient has had difficulty with having consistent transportation this is been difficult for the surgery to be plans to the manager air is requesting of the patient's be admitted for surgery and IV antibiotics. He denies any fevers or chills or nausea or vomiting. Pain Scale: 0 - Related Data Home Medications Medication Instructions Recorded Confirmed Glimepiride [Amaryl] 4 mg PO BID 05/12/16 06/12/19 Insulin Aspart Prot/Insuln Asp 24 units SQ BIDWM 11/12/18 06/12/19 [Novolog Mix 70-30 Vial] Metformin HCl [Glucophage Xr] 750 mg PO BIDWM 11/12/18 06/12/19 Empagliflozin [Jardiance] 10 mg PO DAILY 03/26/19 06/12/19 Lisinopril [Zestril] 1 tab PO DAILY 06/12/19 06/12/19 Pioglitazone HCl 45 mg PO DAILY 06/12/19 06/12/19 Simvastatin [Zocor] 10 mg PO HS 06/12/19 06/12/19 Torsemide 1 tab PO DAILY 06/12/19 06/12/19 Trazodone HCl 100 mg PO HS PRN 06/12/19 06/12/19 Allergies Allergy/AdvReac Type Severity Reaction Status Date / Time liraglutide [From Victoza] AdvReac Vomiting Verified 03/07/19 14:49 All systems ED: reviewed and negative except as stated. Review of Systems: As Per HPI Constitutional: Denies: fever, chills Gastrointestinal: Denies: nausea, vomiting Integumentary: Reports: rash Past Medical History - Past Medical History Attestation: Yes The following information was validated with the patient. Medical history: Reports: diabetes, hyperlipidemia, hypertension, other Surgical history: Reports: other Psychiatric history: Reports: no psych history - Social History Smoking Status: Never smoker Smokeless Tobacco Status: No Alcohol use: Reports: occasionally Drug use: Reports: none Physical Exam CONSTITUTIONAL: Alert and oriented X3, well-nourished, well appearing, in no apparent distress HEAD: Normocephalic; atraumatic. EYES: PERRL, no scleral icterus. NOSE: The nose is normal in appearance without rhinorrhea RESP: Normal chest excursion with respiration; breath sounds clear and equal bilaterally; no wheezes, rhonchi, or rales CARD: Regular rhythm, without murmurs, rub or gallop ABD: Non-distended; non-tender, soft,without rigidity, rebound or guarding SKIN: Foot ulceration to the lateral and medial aspect of the left foot that appears to go through to the fat tissue with no surrounding erythema or drainage. No fluctuance. - General Limitations: no limitations General appearance: alert, in no apparent distress Course Course Narrative: Podiatry called into the emergency department and spoke with a fellow emergency physician and requested the patient just be admitted for IV antibiotics and eventual surgical debridement by them with no other request. The patient will have basic lab work performed as well as cultures will be started on IV antibiotic and Zosyn. No signs of sepsis at this time.He does have a chest x- ray that was read on 06/09/2019 in which there was no obvious fracture but there was soft tissue swelling and an obvious ulceration to the lateral anterior left foot adjacent to the fifth MTP joints. Vital Signs Temperature 98.0 F 06/12/19 10:52 Pulse Rate 88 06/12/19 10:52 Respiratory Rate 18 06/12/19 10:52 Blood Pressure 113/84 06/12/19 10:52 O2 Sat by Pulse Oximetry 94 06/12/19 10:52 Temperature 98.0 F 06/12/19 11:09 Pulse Rate 88 06/12/19 11:09 Respiratory Rate 18 06/12/19 11:09 Blood Pressure 113/84 06/12/19 11:09 O2 Sat by Pulse Oximetry 94 06/12/19 11:09 Oxygen Delivery Oxygen Delivery Room Air Medical Decision Making - Medical Records Medical records reviewed: Yes I reviewed the patient's medical records. - Lab Data Lab results reviewed: Yes I reviewed the patient's lab results. Result diagrams: 06/12/19 11:58 06/12/19 11:58 Lab Results 06/12/19 06/12/19 06/12/19 Range/Units 11:58 11:58 11:58 WBC 6.0 (4.3-11.1) K/mcL RBC 4.79 (4.19-5.50) M/mcL Hgb 13.5 (12.9-16.9) g/dL Hct 41.9 (37.5-50.1) % MCV 87.5 (83.0-100.0) fL MCH 28.2 (28.0-33.3) pg MCHC 32.2 (31.6-35.5) g/dL RDW 14.3 (11.5-14.5) % Plt Count 284 (140-400) K/mcL MPV 9.7 (9.4-12.4) fL Immature Gran % 0.2 (0-4) % Seg Neutrophils % 55.5 % Lymphocytes % 34.3 % Monocytes % 6.5 % Eosinophils % 2.8 % Basophils % 0.7 % Neutrophils # 3.4 (1.6-8.9) K/mcL Lymphocytes # 2.1 (0.6-4.6) K/mcL Monocytes # 0.4 (0.0-1.3) K/mcL Eosinophils # 0.2 (0.0-0.6) K/mcL Basophils # 0.0 (0.0-0.2) K/mcL Sodium 140 (136-145) mEq/L Potassium 4.2 (3.5-5.1) mEq/L Chloride 107 (98-107) mEq/L Carbon Dioxide 26 (23-29) mEq/L BUN 20 (6-20) mg/dL Creatinine 0.86 (0.70-1.30) mg/dL Est GFR ( Amer) > 60 (> 60) Est GFR (Non-Af Amer) > 60 (> 60) BUN/Creatinine Ratio 23 (6-26) Glucose 186 H (70-105) mg/dL Calculated Osmolality 297 (280-300) Lactic Acid 0.9 (0.5-2.2) mmol/L Calcium 9.6 (8.6-10.3) mg/dL Attestation Statement - Attestation Attestation: I examined this patient and my medical decision-making was reviewed with the Resident Physician. I agree with the documented findings, disposition and treatment plan as described except to the extent set forth below. Patient is afebrile in the emergency room, the patient does have known arthritis of the left foot. Patient is going to be admitted for debridement and IV antibiotics. The patient does have ulceration to the left foot on examination, no evidence of severe cellulitis, no lymphangitis. No evidence of necrotizing fasciitis. Patient again is nontoxic appearing in the emergency room. The patient was written for IV antibiotics
[2019-06-12] MEDS ORDERED: Ondansetron ODT 4 MG TAB.RAPDIS SL PRN (11:56)
[2019-06-12] MEDS ORDERED: Naloxone 0.4 MG/ML INJ IVP PRN (11:56)
[2019-06-12] MEDS ORDERED: *HR* Promethazine 25 MG/ML VIAL IVP PRN (11:56)
[2019-06-12 12:14] LABS: Basophils % 0.7 %; Eosinophils # 0.2 K/mcL (0.0-0.6); Eosinophils % 2.8 %; Hematocrit 41.9 % (37.5-50.1); Hemoglobin 13.5 g/dL (12.9-16.9); Immature Granulocytes % 0.2 % (0-4); Lymphocytes # 2.1 K/mcL (0.6-4.6); Lymphocytes % 34.3 %; Mean Corpuscular HGB Conc 32.2 g/dL (31.6-35.5); Mean Corpuscular Hemoglobin 28.2 pg (28.0-33.3); Mean Corpuscular Volume 87.5 fL (83.0-100.0); Mean Platelet Volume 9.7 fL (9.4-12.4); Monocytes # 0.4 K/mcL (0.0-1.3); Monocytes % 6.5 %; Neutrophils # 3.4 K/mcL (1.6-8.9); Platelet Count 284 K/mcL (140-400); Red Blood Count 4.79 M/mcL (4.19-5.50); Red Cell Distribution Width 14.3 % (11.5-14.5); Segmented Neutrophils % 55.5 %
--- NOTE | 2019-06-12 12:24 | Internal Med History&Physical ---
Date of Encounter: 06/12/19 Time of Encounter: 12:19 Internal Medicine - H&P: HPI Chief complaint: Diabetic foot infection History of present illness: Mr. Byers is a 43 year old male with history of cognitive delay and IDDM Type II who presents for scheduled surgery for diabetic foot infection of his left lower extremity. Patient has cognitive and hearing difficulties so obtaining history is difficult. Says that about a year ago he injured his left foot while in the shower and since then has been dealing with a chronic wound in his left lower extremity. Follows with podiatry and has been found to have osteomyelitis myelitis of this foot most recently on doxycycline. Endorses mild pain in this foot but is still able to walk on it. 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 Past Med Surg Social Fam HX - Past Medical History Medical history: diabetes, hyperlipidemia, hypertension, other Additional medical history: vitamin D deficiency, increased TSH, learning disability, decreased hearing, Psychiatric history: no psych history - Past Surgical History Surgical History: other Additional surgical history: ear surgery, right finger/right hand surgery external fixator, removal of external fixator/ right shoulder sx - Social History Smoking Status: Never smoker Smokeless Tobacco Status: No Alcohol use: occasionally Drug use: none - Family History Mother Living Status: Hx Family Cardiac Disorders: No Hx Family Respiratory Disorders: No Hx Family Cancer: No Hx Family GI Disorders: No Hx Family Endocrine Disorder: No Hx Family Neuromuscular Disorders: No Hx Family Neurologic Disorders: No Hx Family HEENT Disorders: No Hx Family Autoimmune Disorders: No Father Living Status: Still Living Hx Family Cardiac Disorders: No Hx Family Respiratory Disorders: No Hx Family Cancer: No Hx Family GI Disorders: No Hx Family Endocrine Disorder: No Hx Family Neuromuscular Disorders: No Hx Family Neurologic Disorders: No Hx Family HEENT Disorders: No Hx Family Autoimmune Disorders: No Internal Medicine - H&P: Meds Glimepiride [Amaryl] 4 mg PO BID 05/12/16 [History] Insulin Aspart Prot/Insuln Asp [Novolog Mix 70-30 Vial] 25 units SQ BID 11/12/18 [History] Metformin HCl [Glucophage Xr] 750 mg PO BID 11/12/18 [History] Empagliflozin [Jardiance] 10 mg PO DAILY 03/26/19 [History] Trazodone HCl 50 mg PO HS PRN 03/26/19 [History] Allergy/AdvReac Type Severity Reaction Status Date / Time liraglutide [From Victoza] AdvReac Vomiting Verified 03/07/19 14:49 All Systems PM: A 10-system review of systems was performed and is negative for pertinent findings except as documented above in the HPI. Review of systems: General: Fevers / Chills / Weight loss / Night sweats Eyes: Blurry Vision / Change in Vision HENT: Ear Pain / Ear Drainage / Rhinorrhea / Throat Pain / Lymphadenopathy Cardiovascular: Chest Pain / Palpatations / Orthopnea / LOPEZ / Weight gain Lungs: Dyspnea / Wheezing / Cough / Sputum production / Pleurisy Abdomen: Abdomen pain / Abdominal distention / Nausea / Vomiting / Diarrhea / Const : Dysuria / Urinary Frequency / Urinary Urgency / Hematuria Extremities: LE edema / Ext pain / Ext erythema Skin: Rashes / Abrasions / Contusions Psych: Hallucinations / Anxiety / Depression Neuro: Weakness / Numbness / Tingling / Facial Droop / Dysphagia - Constitutional Vitals: Temp Pulse Resp BP Pulse Ox 98.0 F 88 18 113/84 94 06/12/19 11:09 06/12/19 11:09 06/12/19 11:09 06/12/19 11:09 06/12/19 11:09 Exam: General: Ill-appearing and in no acute distress HEENT: No erythema of posterior pharynx. No exudates. Lymphatics: No mandibular or cervical lymphadenopathy Cardiovascular: RRR. No murmurs. No chest wall tenderness. Lungs: Clear to auscelltation bilaterally. Regular chest rise. Abdomen: Non-tender. No rebound or gaurding. Nl bowel sounds. Extremities: No edema. 2+ pulses radial and pedal pulses Skin: Left lower extremity with ulceration on plantar aspect of base of metatarsal of fifth digit Psych: Nl attention. A&Ox3 Neuro: knitter wire mesh II-XII intact. 5/5 strength. Sensation to light touch and pinprick in tact. Internal Med - H&P Results - Labs CBC & Chem 7: 06/12/19 11:58 Labs: Short CBC 06/12/19 Range/Units 11:58 WBC 6.0 (4.3-11.1) K/mcL Hgb 13.5 (12.9-16.9) g/dL Hct 41.9 (37.5-50.1) % Plt Count 284 (140-400) K/mcL Neutrophils # 3.4 (1.6-8.9) K/mcL - Assessment and Plan (1) Diabetic foot ulcer associated with diabetes mellitus due to underlying condition Current Visit: No Status: Acute Assessment and plan: Patient with history of IDDM Type II presents for scheduled surgery for diabetic foot infection of his left lower extremity. -No signs of sepsis on admission -Previous x-ray with only soft tissue swelling PLAN: - We will discuss antibiotics with podiatry - may be better to hold off on antibiotics will get better culture data from surgery and given no systemic signs of infection - Surgery tomorrow per podiatry - NPO@SD Qualifiers: Diabetic foot ulcer location: midfoot Laterality: left Non-pressure ulcer stage: with fat layer exposed Qualified Code(s): E08.621 - Diabetes mellitus due to underlying condition with foot ulcer; L97.422 - Non-pressure chronic ulcer of left heel and midfoot with fat layer exposed (2) Uncontrolled type II diabetes mellitus Current Visit: No Status: Chronic Assessment and plan: Hx of IDDM Type II with most recent HgA1c of 8.2 04/01/19. CBG 186 on admission. - Continue home Novolog 25U bid - Hold home metformin, glimepiride, and empagliflozin Qualifiers: Glycemic state: with hyperglycemia Qualified Code(s): E11.65 - Type 2 diabetes mellitus with hyperglycemia (3) DVT prophylaxis Current Visit: Yes Status: Acute Assessment and plan: SCDs given surgery tomorrow and ambulatory patient
[2019-06-12 12:28] LABS: BUN/Creatinine Ratio 23 (6-26); Blood Urea Nitrogen 20 mg/dL (6-20); Calcium 9.6 mg/dL (8.6-10.3); Carbon Dioxide 26 mEq/L (23-29); Chloride 107 mEq/L (98-107); Glucose 186 mg/dL (70-105); Osmolality,Calculated 297 (280-300); Potassium 4.2 mEq/L (3.5-5.1); Sodium 140 mEq/L (136-145); eGFR For African Americans > 60 (> 60); eGFR For Non-African Americans > 60 (> 60)
[2019-06-12] MEDS ORDERED: traZODone 50 MG TABLET PO PRN (12:37)
[2019-06-12] MEDS ORDERED: D5% in Water 1,000 ML IVC PRN (13:18)
[2019-06-12] MEDS ORDERED: *HR* Dextrose 50 % in Water (Syg) 50 ML SYRINGE IVP PRN (13:18)
[2019-06-12] MEDS ORDERED: Dextrose Gel 15 GM/37.5 ML TUBE PO PRN ×2 (13:18)
[2019-06-12] MEDS ORDERED: Piperacillin/Tazobactam 3.375 GM in 0.9 % Sodium Chloride Mini Bag 100 ML IVPB SCH (14:00)
[2019-06-12] MEDS: Piperacillin/Tazobactam 3.375 GM in 0.9 % Sodium Chloride Mini Bag 100 ML IVPB SCH (15:53)
[2019-06-12] MEDS: Insulin NPH/REG 70/30 100 UNIT/ML (x5UNIT) SQ SCH (18:08)
[2019-06-12] MEDS ORDERED: NON-FORMULARY MEDICATION 1 EACH EACH (Insulin Aspart Prot/Insuln Asp [Novolog Mix 70-30 Vi SQ SCH (21:00)
[2019-06-13] MEDS: Piperacillin/Tazobactam 3.375 GM in 0.9 % Sodium Chloride Mini Bag 100 ML IVPB SCH ×4 (01:01→23:23)
[2019-06-13 04:50] LABS: Basophils % 0.6 %; Eosinophils # 0.3 K/mcL (0.0-0.6); Eosinophils % 4.5 %; Hematocrit 36.4 % (37.5-50.1); Lymphocytes # 3.2 K/mcL (0.6-4.6); Lymphocytes % 50.4 %; Mean Corpuscular HGB Conc 31.9 g/dL (31.6-35.5); Mean Corpuscular Hemoglobin 28.3 pg (28.0-33.3); Mean Corpuscular Volume 88.8 fL (83.0-100.0); Mean Platelet Volume 9.9 fL (9.4-12.4); Monocytes # 0.5 K/mcL (0.0-1.3); Monocytes % 7.6 %; Neutrophils # 2.3 K/mcL (1.6-8.9); Platelet Count 243 K/mcL (140-400); Segmented Neutrophils % 36.9 %; White Blood Count 6.3 K/mcL (4.3-11.1)
[2019-06-13 04:51] LABS: Hemoglobin 11.6 g/dL (12.9-16.9)
[2019-06-13 05:17] LABS: BUN/Creatinine Ratio 21 (6-26); Blood Urea Nitrogen 18 mg/dL (6-20); Calcium 8.8 mg/dL (8.6-10.3); Carbon Dioxide 22 mEq/L (23-29); Chloride 109 mEq/L (98-107); Glucose 85 mg/dL (70-105); Osmolality,Calculated 291 (280-300); Potassium 3.6 mEq/L (3.5-5.1); Sodium 140 mEq/L (136-145); eGFR For African Americans > 60 (> 60); eGFR For Non-African Americans > 60 (> 60)
[2019-06-13] MEDS: Insulin NPH/REG 70/30 100 UNIT/ML (x5UNIT) SQ SCH ×2 (08:37→17:28)
--- NOTE | 2019-06-13 09:42 | Internal Med Progress Note ---
<Grover Bland - Last Filed: 06/13/19 15:51> Hospitalist Progress Note - Encounter Date of Encounter: 06/13/19 - Exam Vitals: Temp Pulse Resp BP Pulse Ox 98.5 F 86 18 117/73 98 06/13/19 10:04 06/13/19 10:04 06/13/19 10:04 06/13/19 10:04 06/13/19 10:04 - Assessment and Plan (1) Uncontrolled type II diabetes mellitus Current Visit: No Status: Chronic (2) Diabetic foot ulcer associated with diabetes mellitus due to underlying cond ition Current Visit: No Status: Acute (3) DVT prophylaxis Current Visit: Yes Status: Acute (4) Hypertension Current Visit: No Status: Chronic - Time Spent with Patient Total time spent is greater than 50% in coordination of care (as documented) at patient's floor/unit and/or counseling patient: Internal Medicine: Result - Labs CBC & Chem 7: 06/13/19 04:26 06/13/19 04:26 Labs: Short CBC 06/13/19 Range/Units 04:26 WBC 6.3 (4.3-11.1) K/mcL Hgb 11.6 L D (12.9-16.9) g/dL Hct 36.4 L (37.5-50.1) % Plt Count 243 (140-400) K/mcL Neutrophils # 2.3 (1.6-8.9) K/mcL BMP 06/13/19 04:26 Sodium 140 Potassium 3.6 Chloride 109 H Carbon Dioxide 22 L BUN 18 Creatinine 0.86 Glucose 85 Calcium 8.8 Consult Discharge Plan - Plan Referrals: Lobo Tyler MD [Primary Care Provider] - - Attending Attestation The history, physical exam, and medical decision making was performed by the medical student either while I was physically present and actively involved or I personally re-performed the exam and medical decision making. I have verified the accuracy of the medical student's documentation with regards to the history, physical exam findings, and medical decision making on 06/13/19. Mr Byers is currently hospitalized for foot wound needing debridement. He remains moderate to high risk due to potential for worsening clinical status. Mr Byers is awaiting surgery. He has no specific complaints. No CP or SOB. No cough. No GI issues. Exam Alert NC. EOMI Mucus membranes dry. Neck supple Heart not tachy No wheeze Abd soft Dressing intact. Moves all extremities. I/P 1. Foot wound - for debridement today. Further diagnoses and plan as above. <RufinoScotty Leana - Last Filed: 06/13/19 16:23> Hospitalist Progress Note - Encounter Date of Encounter: 06/13/19 Time of Encounter: 09:42 - Subjective Interval History: Mr. 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 Pt. is in need of surgical debridement and IV antibiotics due to possible osteomyelitis. Pt. denies pain, weakness, fever, chills, wheezing, SOB, numbness, tingling, chest pain, palpitations, lightheadedness, or confusion. He complains of some tenderness when walking and coughing which he states is normal. - Exam Vitals: Temp Pulse Resp BP Pulse Ox 98.3 F 80 15 112/75 98 06/13/19 04:13 06/13/19 04:13 06/13/19 04:13 06/13/19 04:13 06/13/19 04:13 Exam: General: AOx3, no acute distress, pleasant affect Head: Atraumatic, normocephalic Skin: Dry and warm, no rash, no lesions other than ulcer on left foot. Cardiovascular: S1 & S2, no m/r/g. No JVD. Lungs: CTA b/l, no wheezing or rales Abdomen: Soft, non-tender, bowel sounds present Extremities: No edema, muscle strength and sensation intact Neurological: No focal deficits, cooperative with examination Pulses: Intact and regular on all 4 extremities Wound: Left foot, 5th metatarsal head, plantar surface; Dressing in place appears clean and dry, without obvious drainage Rest of the physical exam is non contributory. - Assessment and Plan (1) Diabetic foot ulcer associated with diabetes mellitus due to underlying condition Current Visit: No Status: Acute Assessment and Plan: Patient presented to the ED on 06/12 with the complaint of a left foot ulcer. Outpatient xray displayed soft tissue swelling, patient is afebrile and shows no signs of sepsis. Pt. was made npo at midnight and will have surgery for wound debridement and drainage. Ulcer on left foot at 5th metatarsal head on the plantar surface; wound had just been bandaged by nursing, was clean and without drainage. Vancomycin and Zosyn antibiotics started 06/12 prophylactically, wound cultures will be sent. (2) Uncontrolled type II diabetes mellitus Current Visit: No Status: Chronic Assessment and Plan: Patient has a history of type 2 insulin dependent DM, outpatient medications include novolog, metformin, glimepiride, and empagliflozin. Podiatry will take patient for surgery and debridement of left foot ulcer today. Glucose control with sliding scale insulin; hold metformin, glimepiride, and empagloflozin. 06/13 glucose level was 120 and 109, NPO since midnight. (3) DVT prophylaxis Current Visit: No Status: Acute Assessment and Plan: SCD's given for prophylaxis. Pt. able to ambulate and being taken for surgery today. - Time Spent with Patient Total time spent is greater than 50% in coordination of care (as documented) at patient's floor/unit and/or counseling patient: Internal Medicine: Result - Labs CBC & Chem 7: 06/13/19 04:26 06/13/19 04:26 Labs: Short CBC 06/12/19 06/13/19 Range/Units 11:58 04:26 WBC 6.0 6.3 (4.3-11.1) K/mcL Hgb 13.5 11.6 L D (12.9-16.9) g/dL Hct 41.9 36.4 L (37.5-50.1) % Plt Count 284 243 (140-400) K/mcL Neutrophils # 3.4 2.3 (1.6-8.9) K/mcL BMP 06/12/19 06/13/19 11:58 04:26 Sodium 140 140 Potassium 4.2 3.6 Chloride 107 109 H Carbon Dioxide 26 22 L BUN 20 18 Creatinine 0.86 0.86 Glucose 186 H 85 Calcium 9.6 8.8 <Grover Bland - Last Filed: 06/13/19 15:51> (1) Uncontrolled type II diabetes mellitus Qualifiers: Glycemic state: with hyperglycemia Qualified Code(s): E11.65 - Type 2 diabetes mellitus with hyperglycemia (2) Diabetic foot ulcer associated with diabetes mellitus due to underlying condition Qualifiers: Diabetic foot ulcer location: midfoot Laterality: left Non-pressure ulcer stage: with fat layer exposed Qualified Code(s): E08.621 - Diabetes mellitus due to underlying condition with foot ulcer; L97.422 - Non-pressure chronic ulcer of left heel and midfoot with fat layer exposed (4) Hypertension Qualifiers: Hypertension type: essential hypertension Qualified Code(s): I10 - Essential (primary) hypertension <Scotty Joy - Last Filed: 06/13/19 16:23> (1) Diabetic foot ulcer associated with diabetes mellitus due to underlying condition Qualifiers: Diabetic foot ulcer location: midfoot Laterality: left Non-pressure ulcer stage: with fat layer exposed Qualified Code(s): E08.621 - Diabetes mellitus due to underlying condition with foot ulcer; L97.422 - Non-pressure chronic ulcer of left heel and midfoot with fat layer exposed (2) Uncontrolled type II diabetes mellitus Qualifiers: Glycemic state: with hyperglycemia Qualified Code(s): E11.65 - Type 2 diabetes mellitus with hyperglycemia
--- NOTE | 2019-06-13 11:20 | Podiatry Consult Note ---
Date of Encounter: 06/13/19 Time of Encounter: 10:00 Assessment and Plan (1) Diabetic foot ulcer Current visit: No Status: Acute Chronic sosa stage II ulceration of the left foot sub mt head #5 left PLAN: assessment complete at bedside, patient stable at this time Plan for surgical intervention with Macy this afternoon, has been NPO since midnight. Planned I&D and debridement of 5th met of the left foot Discussed surgical procedure in depth. Recovery as well as all risks and benefits were thoroughly discussed with patient. Patient verbalizes complete understanding. Consent was previously obtained by and was placed to chart. Patient receiving hibiclens bath as ordered at this time Admit wbc 6.0 Will order ESR and CRP Currently on vanc and zosyn Continue at this time. Will send intra operative cultures. Continue to monitor. Call with any changes. Will follow up post operative. Qualifiers: Qualified Code(s): E11.621 - Type 2 diabetes mellitus with foot ulcer; L97.529 - Non-pressure chronic ulcer of other part of left foot with unspecified severity History of Present Illness HPI: MMr. Byers is a 43 year old male with history of cognitive delay and IDDM Type II who presented for scheduled surgery for diabetic foot infection. Patient is followed by for a chronic ulceration sub mt head #5 left, he recently was noted to have osseous changes of the 5th mt on last imaging with increase in erythema to left foot, was started on PO antibiotics and last seen in the office on 06/07 where he reported he had 7 days left of PO antibiotics. Patient has cognitive and hearing difficulties. most recently on doxycycline. Reports mild pain in this foot but is still able to walk on it. Patient taking a bath on arrival. Denies any complaints. VS stable. Past Med Surg Social Fam HX - Past Medical History Medical history: diabetes, hyperlipidemia, hypertension, other Additional medical history: vitamin D deficiency, increased TSH, learning disab ility, decreased hearing, Psychiatric history: no psych history - Past Surgical History Surgical History: other Additional surgical history: ear surgery, right finger/right hand surgery external fixator, removal of external fixator/ right shoulder sx - Social History Smoking Status: Never smoker Smokeless Tobacco Status: No Alcohol use: occasionally Drug use: none - Family History Mother Living Status: Hx Family Cardiac Disorders: No Hx Family Respiratory Disorders: No Hx Family Cancer: No Hx Family GI Disorders: No Hx Family Endocrine Disorder: No Hx Family Neuromuscular Disorders: No Hx Family Neurologic Disorders: No Hx Family HEENT Disorders: No Hx Family Autoimmune Disorders: No Father Name: Onel Byers Age: 63 Family Member Ethnicity: Non- Living Status: Still Living Hx Family Cardiac Disorders: No Hx Family Respiratory Disorders: No Hx Family Cancer: No Hx Family GI Disorders: No Hx Family Endocrine Disorder: No Hx Family Neuromuscular Disorders: No Hx Family Neurologic Disorders: No Hx Family HEENT Disorders: No Hx Family Autoimmune Disorders: No Medications and Allergies Glimepiride [Amaryl] 4 mg PO BID 05/12/16 [History] Insulin Aspart Prot/Insuln Asp [Novolog Mix 70-30 Vial] 24 units SQ BIDWM 11/12/18 [History] Metformin HCl [Glucophage Xr] 750 mg PO BIDWM 11/12/18 [History] Empagliflozin [Jardiance] 10 mg PO DAILY 03/26/19 [History] Lisinopril [Zestril] 1 tab PO DAILY 06/12/19 [History] Pioglitazone HCl 45 mg PO DAILY 06/12/19 [History] Simvastatin [Zocor] 10 mg PO HS 06/12/19 [History] Torsemide 1 tab PO DAILY 06/12/19 [History] Trazodone HCl 100 mg PO HS PRN 06/12/19 [History] Allergy/AdvReac Type Severity Reaction Status Date / Time liraglutide [From Victoza] AdvReac Vomiting Verified 03/07/19 14:49 All Systems Reviewed: as per hpi Physical Exam - Constitutional Vitals: Temp Pulse Resp BP Pulse Ox 98.5 F 86 18 117/73 98 06/13/19 10:04 06/13/19 10:04 06/13/19 10:04 06/13/19 10:04 06/13/19 10:04 Exam: CONSTITUTIONAL: awake alert and oriented , [place] VASCULAR: faintly palpable pulses DP/PT, warm toes to tibia, cap refill <3 seconds, no calf pain with manual compression NEUROLOGICAL: diminished sensation to light and moderate touch MUSCULOSKELETAL: Muscle strength 5/5 and equal bilaterally. SkIN: Chronic ulceration sub mt head #5 left, sosa stage II [id number] with 100% healthy granulation tissue noted to base. no drainage. no odor. mild surrounding edema, erythema and warmth to periwound as well as dorsal aspect of left foot anterior to wound. no ascending cellulitis. no undermining or tracking noted. no fluctuance noted. There is also hyperkeratoic lesions to right foot sub mt head #5 and #1 left. no associated ulcerations noted. no appearance of infection Results - Labs Result Diagrams: 06/13/19 04:26 06/13/19 04:26 Labs: Abnormal lab results RBC 4.10 M/mcL (4.19-5.50) L 06/13/19 04:26 Hgb 11.6 g/dL (12.9-16.9) L D 06/13/19 04:26 Hct 36.4 % (37.5-50.1) L 06/13/19 04:26 Chloride 109 mEq/L (98-107) H 06/13/19 04:26 Carbon Dioxide 22 mEq/L (23-29) L 06/13/19 04:26 Glucose 186 mg/dL (70-105) H 06/12/19 11:58 POC Glucose 120 mg/dL (70-99) H 06/13/19 08:37 H & H 06/12/19 06/13/19 Range/Units 11:58 04:26 Hgb 13.5 11.6 L D (12.9-16.9) g/dL Hct 41.9 36.4 L (37.5-50.1) % All other labs normal. Consult Discharge Plan - Plan Referrals: Lobo Tyler MD [Primary Care Provider] -
[2019-06-13 11:46] LABS: C-Reactive Protein < 5 mg/L (Less than 10)
--- NOTE | 2019-06-13 13:09 | Anesthesia Evaluation PreOp ---
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 Decrased hearing.) Other Medical History: Diabetes Type II, Thyroid (Hx increased TSH), Other (Vit D deficiency) Anesthesia History: No Prior Anesthetic Complications, Past Anesthesia (Ear surgery, R-finger/R-hand Ex-Fix, Removal Ex-Fix, R-shoulder, Circumcision 03/2019) Alcohol Use: occasionally Drug use: none Medications and Allergies Glimepiride [Amaryl] 4 mg PO BID 05/12/16 [History] Insulin Aspart Prot/Insuln Asp [Novolog Mix 70-30 Vial] 24 units SQ BIDWM 11/12/18 [History] Metformin HCl [Glucophage Xr] 750 mg PO BIDWM 11/12/18 [History] Empagliflozin [Jardiance] 10 mg PO DAILY 03/26/19 [History] Lisinopril [Zestril] 1 tab PO DAILY 06/12/19 [History] Pioglitazone HCl 45 mg PO DAILY 06/12/19 [History] Simvastatin [Zocor] 10 mg PO HS 06/12/19 [History] Torsemide 1 tab PO DAILY 06/12/19 [History] Trazodone HCl 100 mg PO HS PRN 06/12/19 [History] 3 Allergy/AdvReac Type Severity Reaction Status Date / Time liraglutide [From Victoza] AdvReac Vomiting Verified 03/07/19 14:49 - Meds/Allergy Pre-op Review Medications Reviewed: Yes Allergies Reviewed: Yes Beta Blockers on Current Med List: No Anesthesia Results - Labs 06/13/19 04:26 06/13/19 04:26 - Imaging EKG: report reviewed (115bpm - Sinus tachycardia Low voltage, precordial leads Electronically Signed On 06-13-2018 17:39:07 EDT by Harry Ignacio) Anesthesia Exam Vital Signs Temp Pulse Resp BP Pulse Ox 06/13/19 10:04 98.5 F 86 18 117/73 98 06/13/19 04:13 98.3 F 80 15 112/75 98 06/13/19 00:11 97.4 F L 87 15 121/76 95 06/12/19 20:28 98.0 F 84 18 114/77 94 06/12/19 15:24 97.7 F 93 16 134/87 95 06/12/19 13:58 18 115/94 Intake and Output 06/12/19 06/13/19 06/13/19 23:59 07:59 15:59 Intake Total 600 / 600 600 / 600 Balance 600 / 600 600 / 600 Intake: IV Fluids 600 / 600 600 / 600 Zosyn 3.375 GM In 0.9 % Sodium 100 / 100 100 / 100 Chloride (Mini-Bag +) 100 ML @ 25 mls/hr IVPB Q8HR [facility] Rx#: [id number] Vancocin 1,750 MG In 0.9 % 500 / 500 500 / 500 Sodium Chloride 500 ML @ 333.3 mls/hr IVPB Q12H [facility] Rx#: [id number] Oral 0 / 0 Other: # Voids 1 Blood Glucose* 167 120 Height: 5'9" Weight: 235# BMI = 35 NPO (# of Hours): MNoc - HEENT Pupil (Motor): Pupils equal, EOMI Mallampati: III Teeth: Normal Oral Opening: Greater than 3 - PUMPER GAGER APPRENTICE LOC: Oriented PUMPER GAGER APPRENTICE Motor: Normal RUE, Normal LUE, Normal RLE, Normal LLE, Normal Face PUMPER GAGER APPRENTICE Sensory: Normal: RUE, LUE, RLE, LLE, Face - Cardiac Rhythm: Regular Murmur: None - Pulmonary Breath Sounds: bilateral Clear Respiratory Effort: Symmetrical Anesthesia Assess/Plan ASA Score: 3 (Obesity, Cognitive delay, DM, HTN, Chol) Level of consciousness: Cooperative, Oriented, Tranquil Anesthetic Plan: General, MAC Monitoring Plan: Standard Monitors Recovery Plan: PACU Anes Supervising Prov Stmt: Pt seen/evaluated, R&B Discussed, questions answered and consent obtained. Casey Harris MD
[2019-06-13] MEDS ORDERED: *HR* FentaNYL (PF) 100 MCG/2 ML VIAL ONE (14:01)
[2019-06-13] MEDS ORDERED: *HR* Midazolam HCl 2 MG/2 ML VIAL ONE ×2 (14:01→14:08)
[2019-06-13] MEDS ORDERED: Lidocaine -MPF 2% 2 ML VIAL ONE (14:01)
[2019-06-13] MEDS ORDERED: Propofol 500 MG/50 ML INFUS..BTL ONE (14:01)
[2019-06-13] MEDS ORDERED: Bupivacaine/EPI 1:200k 0.25%PF 30 ML VIAL ONE (14:57)
--- NOTE | 2019-06-13 15:47 | Operative Note ---
Date of procedure: 06/13/19 Pre-op diagnosis: left foot chronic ulceration 2.5cmx1.3cmx0.3cm, osteomyelitis Post-op diagnosis: same Procedure: Preparation of wound bed for graft application of graft debridement of left 5th metatarsal bone Implants: PuraPly [id number] Complications: none Anesthesia: GETA Local Anesthetics: 1% Lidocaine HCL SubQ (cc) Surgeon: Julien Cavazos Was there an accountant assistant present: No Estimated blood loss (cc): 15 Specimen: 5th metatarsal bone left foot-micro and path Condition: stable Disposition: PACU Procedure in Detail: Indications: 43-year-old diabetic male with chronic ulceration plantar lateral aspect of left foot showing changes on x-ray of the fifth metatarsal bone likely due to osteomyelitis is being brought to the operating room for the above procedures after having the nature of the procedures, risks versus benefits potential complications consequences of surgery and his condition discussed at length. No guarantees were made as to the outcome of any procedure and understood that he would still have a wound to heal and he could require further surgery. All of his questions have been answered and informed consent was signed. Patient was brought from the preoperative holding area and operating room placed on the operating room table in the supine position. 1% lidocaine plain was injected into the patient's left foot and the following procedure began after inflating the tourniquet to 250 mmHg. Debridement of fifth metatarsal bone. Attention was directed to the lateral aspect of the patient's left foot where a #15 blade was used to make an incision over the fifth metatarsal distally. Blunt dissection was carried out down the level of the periosteum which was reflected from the fifth metatarsal. The sagittal saw was used to cut the distal aspect of the fifth metatarsal bone and the bone was freed from its soft tissue attachments and removed. There was no devitalized tissue in the area. The fifth metatarsal head did appear soft and this bone was sent to microbiology and pathology. The site was irrigated and the decision was made to reapproximate the skin edges as her was no devitalized tissue in this area. The skin was reapproximated with 2-0 Prolene. Preparation of wound for grafting and application of graft. Attention was directed to the plantar lateral aspect of the patient's right foot where a #15 blade and sharp instrumentation was utilized to sharply prepare and remove devitalized and sloughing tissue from the plantar lateral foot wound. Once down to an adequately bleeding base in the deep subcutaneous tissue the 4 cm x 2 cm puraply graft was applied to the wound bed and PRP was also sprayed onto the wound. The graft was anchored with Steri-Strips. The patient tolerated the anesthesia and the procedure well and was escorted to the recovery room with vital signs stable and vascular status intact to the left foot noted by instant capillary refill time to all digits. Adequate hemostasis was present. A she will return to the floor.
[2019-06-13] MEDS ORDERED: Naloxone 0.4 MG/ML INJ IVP PRN (15:50)
[2019-06-13] MEDS ORDERED: Dextrose Gel 15 GM/37.5 ML TUBE PO PRN ×2 (15:50)
[2019-06-13] MEDS ORDERED: *HR* Promethazine 25 MG/ML VIAL IVP PRN (15:50)
[2019-06-13] MEDS ORDERED: *HR* Dextrose 50 % in Water (Syg) 50 ML SYRINGE IVP PRN (15:50)
[2019-06-13] MEDS ORDERED: Ondansetron ODT 4 MG TAB.RAPDIS SL PRN (15:50)
[2019-06-13] MEDS ORDERED: D5% in Water 1,000 ML IVC PRN (15:50)
[2019-06-13] MEDS ORDERED: traZODone 50 MG TABLET PO PRN (15:50)
[2019-06-13 16:39] LABS: ABG Base Excess 0 mEq/L (-2 to 3); ABG HCO3 26 mEq/L (21-27); ABG Oxygen Saturation 99 % (95-98); ABG PCO2 51 mmHg (35-45); ABG PH 7.32 pH Units (7.32-7.45); ABG PO2 161 mmHg (85-104); ABG TCO2 28 mEq/L (20-26)
[2019-06-13] MEDS ORDERED: *HR* HYDROcodone/Acet 5/325 mg TABLET PO ONE (21:06)
[2019-06-14] MEDS ORDERED: traMADol 50 MG TABLET PO ONE (01:37)
[2019-06-14 04:22] LABS: Hematocrit 41.7 % (37.5-50.1); Mean Corpuscular HGB Conc 32.1 g/dL (31.6-35.5); Mean Corpuscular Hemoglobin 28.3 pg (28.0-33.3); Mean Corpuscular Volume 88.2 fL (83.0-100.0); Mean Platelet Volume 9.5 fL (9.4-12.4); Platelet Count 272 K/mcL (140-400); Red Blood Count 4.73 M/mcL (4.19-5.50); White Blood Count 7.2 K/mcL (4.3-11.1)
[2019-06-14 04:26] LABS: Hemoglobin 13.4 g/dL (12.9-16.9)
[2019-06-14 04:45] LABS: BUN/Creatinine Ratio 15 (6-26); Blood Urea Nitrogen 15 mg/dL (6-20); Calcium 8.9 mg/dL (8.6-10.3); Carbon Dioxide 23 mEq/L (23-29); Chloride 107 mEq/L (98-107); Glucose 129 mg/dL (70-105); Osmolality,Calculated 291 (280-300); Potassium 3.9 mEq/L (3.5-5.1); Sodium 139 mEq/L (136-145); eGFR For African Americans > 60 (> 60); eGFR For Non-African Americans > 60 (> 60)
[2019-06-14] MEDS: Piperacillin/Tazobactam 3.375 GM in 0.9 % Sodium Chloride Mini Bag 100 ML IVPB SCH (09:18)
[2019-06-14] MEDS: Insulin NPH/REG 70/30 100 UNIT/ML (x5UNIT) SQ SCH (09:20)
--- NOTE | 2019-06-14 11:04 | Podiatry Progress Note ---
Date of Encounter: 06/14/19 Time of Encounter: 10:00 - Assessment and Plan (1) Diabetic foot ulcer Current Visit: No Status: Acute Chronic sosa stage II ulceration of the left foot sub mt head #5 left POD #1 Preparation of wound bed for graft application of graft debridement of left 5th metatarsal bone PLAN: Recovering well after surgical procedure no overnight complications Patient may be discharged home from podiatry standpoint Will need discharged on PO antibiotics Hx of SA to wound sensitive to bactrim, doxy and cipro Will follow up in wound care center after discharge with Dr. Cavazos - appointment made for MondayJun 17 at 1400 Discussed follow up instructions Patient to be protective weight bearing to left foot Has diabetic boot at bedside, boot to be worn with any ambulation for protection of operative site Not to get surgical site wet Leave dressing intact until visit Verbalizes understanding Call office with any fevers chills n/v or fls Admit wbc 7.2 Temp 98.2 VS stable ESR 5 CRP <5 Currently on vanc and zosyn Discharge on PO Continue to monitor. Call with any changes. Will follow up post operative. Qualifiers: Diabetic foot ulcer location: other Diabetes mellitus type: type 2 Laterality: left Non-pressure ulcer stage: unspecified non-pressure ulcer stage Qualified Code(s): E11.621 - Type 2 diabetes mellitus with foot ulcer; L97.529 - Non-pressure chronic ulcer of other part of left foot with unspecified severity Subjective Interval history: Patient POD #1 s/p Preparation of wound bed for graft application of graft debridement of left 5th metatarsal bone Patient resting comfortably on arrival, dressing CDI to left foot Patient denies any known fevers, chills, n/v or fls overnight. Patient denies any needs or concerns. Objective - Vital Signs Vital Signs: Vital Signs Temp Pulse Resp BP Pulse Ox 06/14/19 07:13 98.2 F 85 18 107/74 94 06/14/19 03:06 97.8 F 87 17 99/64 97 06/13/19 23:18 98.1 F 87 17 98/59 96 06/13/19 20:55 93 16 96/68 97 06/13/19 19:15 97.4 F L 94 15 119/71 94 06/13/19 18:07 98.1 F 83 16 113/73 97 06/13/19 17:35 97.8 F 85 15 101/67 97 06/13/19 17:05 98.0 F 82 16 114/82 95 06/13/19 16:58 98.1 F 85 16 113/85 96 06/13/19 16:48 84 16 130/91 98 06/13/19 16:38 98.1 F 84 16 122/81 96 06/13/19 16:28 81 16 132/88 97 06/13/19 16:18 86 16 123/81 96 06/13/19 16:08 97.8 F 81 16 117/81 100 Intake and Output 06/13/19 06/14/19 06/14/19 23:59 07:59 15:59 Intake Total 100 / 700 600 / 840 240 / 840 Output Total 1375 / 1395 850 / 1650 800 / 1650 Balance -1275 / -695 -250 / -810 -560 / -810 Intake: IV Fluids 100 / 700 600 / 600 Zosyn 3.375 GM In 0.9 % Sodium 100 / 100 100 / 100 Chloride (Mini-Bag +) 100 ML @ 25 mls/hr IVPB Q8HR [facility] Rx#: [id number] Vancocin 1,750 MG In 0.9 % 500 / 500 Sodium Chloride 500 ML @ 333.3 mls/hr IVPB Q12H [facility] Rx#: [id number] Oral 0 / 240 240 / 240 Output: Urine 1375 / 1375 850 / 1650 800 / 1650 Other: Meal Dinner Breakfast Percent of Meal Consumed 100% 100% Weight 106.6 kg Blood Glucose* 171 152 Patient Weight 06/14/19 23:59 Weight 106.6 kg - Exam Exam: CONSTITUTIONAL: awake alert and oriented x3 VASCULAR: Dressing intact to left foot- unable to palpate DP or PT pulses, cap refill <3 seconds, warm to touch, no calf pain with manual compression NEUROLOGICAL: diminished sensation to light and moderate touch MUSCULOSKELETAL: movement intact to toes post op: will leave surgical dressing intact at this time. no strikethrough drainage noted. - Lab Result Diagrams: 06/14/19 03:57 06/14/19 03:57 Labs: Abnormal lab results RBC 4.10 M/mcL (4.19-5.50) L 06/13/19 04:26 Hgb 11.6 g/dL (12.9-16.9) L D 06/13/19 04:26 Hct 36.4 % (37.5-50.1) L 06/13/19 04:26 ABG pCO2 51 mmHg (35-45) H 06/13/19 16:35 ABG pO2 161 mmHg (85-104) H 06/13/19 16:35 ABG Total CO2 28 mEq/L (20-26) H 06/13/19 16:35 ABG O2 Saturation 99 % (95-98) H 06/13/19 16:35 Chloride 109 mEq/L (98-107) H 06/13/19 04:26 Carbon Dioxide 22 mEq/L (23-29) L 06/13/19 04:26 Glucose 129 mg/dL (70-105) H 06/14/19 03:57 POC Glucose 171 mg/dL (70-99) H 06/13/19 20:27 Microbiology, Last 48 Hours 06/13/19 15:31 Surgical Biopsy Culture - Preliminary Left Fifth Toe 06/13/19 15:31 Anaerobic Culture - Preliminary Left Fifth Toe Culture is incubating. 06/12/19 11:58 Blood Culture - Preliminary Peripheral Venipuncture Culture is incubating and being continuously monitored for growth. Final report to follow. 06/12/19 11:58 Blood Culture - Preliminary Peripheral Venipuncture Culture is incubating and being continuously monitored for growth. Final report to follow. Consult Discharge Plan - Plan Referrals: Lobo Tyler MD [Primary Care Provider] -
[2019-06-14 11:37] VITALS: BP 122/83
--- NOTE | 2019-06-14 12:08 | Discharge Summary ---
- NOTES TO OUTPATIENT PROVIDER Notes to Outpatient Provider: Pt in observation for diabetic foot ulcer. Had debridement on 06/13. Discharged on PO abx. Orders not resulted at time of discharge: Pending orders 06/12/19 11:58 Culture,Blood [BC] Stat 06/13/19 15:29 Surgical Pathology [PTH] Routine 06/13/19 15:31 Culture,Anaerobic [RM] Routine Culture,Tissue(Biopsy),w Gr St [RM] Stat Date of Encounter: 06/14/19 Time of Encounter: 12:05 - Discharge Diagnosis (1) Uncontrolled type II diabetes mellitus Priority: Secondary Status: Chronic Qualifiers: Glycemic state: with hyperglycemia Qualified Code(s): E11.65 - Type 2 diabetes mellitus with hyperglycemia (2) Diabetic foot ulcer associated with diabetes mellitus due to underlying condition Priority: Primary Status: Acute Qualifiers: Diabetic foot ulcer location: midfoot Laterality: left Non-pressure ulcer stage: with fat layer exposed Qualified Code(s): E08.621 - Diabetes mellitus due to underlying condition with foot ulcer; L97.422 - Non-pressure chronic ulcer of left heel and midfoot with fat layer exposed (3) Hypertension Priority: Secondary Status: Chronic Qualifiers: Hypertension type: essential hypertension Qualified Code(s): I10 - Essential (primary) hypertension Hospital course: Mr. Byers is a 43 year old male with hx diabetes hospitalized for podiatric surgery. Mr Byers was hospitalized due to wound on R foot. He underwent surgical debridement and biopsy on 06/13 Today he is feeling well. Cultures are pending. He is to follow up with podiatry and will be discharged on PO abx. - Time Spent with Patient Total time spent providing and/or coordinating discharge services: - Discharge Medications Prescriptions: New Doxycycline 100 mg PO BID #15 capsule Continued Glimepiride [Amaryl] 4 mg PO BID Insulin Aspart Prot/Insuln Asp [Novolog Mix 70-30 Vial] 24 units SQ BIDWM Metformin HCl [Glucophage Xr] 750 mg PO BIDWM Empagliflozin [Jardiance] 10 mg PO DAILY Trazodone HCl 100 mg PO HS PRN PRN Reason: Sleep Torsemide 1 tab PO DAILY Simvastatin [Zocor] 10 mg PO HS Pioglitazone HCl 45 mg PO DAILY Lisinopril [Zestril] 1 tab PO DAILY Home Medications: Glimepiride [Amaryl] 4 mg PO BID 05/12/16 [History] Insulin Aspart Prot/Insuln Asp [Novolog Mix 70-30 Vial] 24 units SQ BIDWM 11/12/18 [History] Metformin HCl [Glucophage Xr] 750 mg PO BIDWM 11/12/18 [History] Empagliflozin [Jardiance] 10 mg PO DAILY 03/26/19 [History] Lisinopril [Zestril] 1 tab PO DAILY 06/12/19 [History] Pioglitazone HCl 45 mg PO DAILY 06/12/19 [History] Simvastatin [Zocor] 10 mg PO HS 06/12/19 [History] Torsemide 1 tab PO DAILY 06/12/19 [History] Trazodone HCl 100 mg PO HS PRN 06/12/19 [History] Doxycycline 100 mg PO BID #15 capsule 06/14/19 [Rx] Allergies/Adverse Reactions: Allergy/AdvReac Type Severity Reaction Status Date / Time liraglutide [From Victoza] AdvReac Vomiting Verified 03/07/19 14:49 Date of admission: 06/12/19 13:31 Primary care physician: Lobo Tyler MD Consults: 06/12/19 11:41 Consult to Podiatry [CONS] Stat Consulting Provider: [facility] Reason for Consult: osteomyelitis Time Notified: 11:41 Call Completed: Yes 06/12/19 13:15 PICC LINE [Consult to Invasive Line Access Team] [CONS] Stat Reason for Consult: Difficult IV access Line Type: EPIV 06/12/19 18:19 Consult to [facility] Dryer Maintainer [CONS] Routine Reason for SW Consult: discharge planning Discharging clinician: Grover Bland Anticipated date of discharge: 06/14/19 - Constitutional Vitals: Temp Pulse Resp BP Pulse Ox 98.0 F 99 16 122/83 97 06/14/19 11:31 06/14/19 11:31 06/14/19 11:31 06/14/19 11:31 06/14/19 11:31 General appearance: Present: A&O X 3 Exam: See below - Head Head exam: Present: atraumatic, normocephalic - Eye Eye exam: Present: EOMI, conjuntiva pink - ENT ENT exam: Present: normal exam - Neck Neck exam general surgery: Present: normal inspection, supple - Respiratory Respiratory exam: Present: CTAB - Cardiovascular Cardiovascular exam: Present: RRR. Absent: tachycardia - GI/Abdominal GI/Abdominal exam: Present: soft. Absent: tenderness - Extremities Exam Extremities exam: Present: warm. Absent: tenderness - Neurological Exam Neurological exam: Present: alert, oriented X3 - Skin Skin exam: Present: dry, warm - Patient Status Disposition: Home, Self-Care Condition: Fair Functional capacity at discharge: independent ambulation Overall status at discharge: patient is progressing back to baseline - Discharge Instructions Follow Up With: Lobo Tyler MD [Primary Care Provider] - Julien Cavazos DPM [Partnered Physician] - 06/17/19 4:00 pm (Follow up in wound care) Additional Instructions: Do not get surgical site wet. Let dressing intact until follow up with Dr. Cavazos Call office for and nausea/vomiting or fever Follow-up appointments: If there is not an appointment listed below, please call your physician and schedule a follow-up appointment. If you have congestive heart failure and your symptoms return, make an appointment with your physician. Medication List: Carry an up to date list of medications you are taking at all time. We have given you an updated medication list including any new medications that you have been prescribed. Please provide that list to your primary provider Symptoms: If your condition changes or you experience any of the following symptoms, notify your physician immediately: Unusual or worsening pain, fever, persistent nausea and vomiting, bleeding, increase in swelling (especially in your legs), sudden weight gain, extreme dizziness, chest pain, increased drainage or redness from a wound or incision. Go to the emergency department if you experience a problem with breathing. Weights: If you have a history of swelling or shortness of breath, weigh yourself daily and notify your physician if you have a weight gain of two or more pounds in one day or 5 or more pounds in a week. If you experience any of the warning signs for stroke: Sudden numbness or weakness of the face, arm or leg; especially on one side of the body, sudden confusion, trouble speaking or understanding, sudden trouble seeing in one or both eyes, sudden trouble walking, dizziness, loss of balance or coordination, sudden sever headache with no cause; Call 911 or go to the emergency room. Stroke is a medical emergency. Some risk factors for stroke: Age, cigarette smoking, diabetes, excessive alcohol consumption, family history, high blood pressure, overweight, physical inactivity, prior stroke, heart attack, diagnosis of carotid artery stenosis or other artery disease. If you smoke, STOP: Smoking or tobacco use significantly increases your risk of heart and lung disease. Your chance of disease greatly increases if you continue to smoke. For more information, call the [place] tobacco quit line for smoking cessation 8-119-MIUO-NOW ( ) - Diet and Activity Activity: other (Protected weight bearing left foot - wear diabetic boot with any ambulation) Diet: advance to your usual diet
[2019-06-14] MEDS ORDERED: FLU Vac QV 19-20 (6Month+)/PF 0.5 ML SYRINGE IM ONE (14:41)
[2019-06-14] MEDS ORDERED: Aminoglycoside Consult 1 EACH MC ONE (15:29)
== END 2019-06-14 15:30 | disposition home or self-care (01) ==
LOC: EMEROOARM 10:38 → 3NENU 10:38 → SUATTDRO 13:31 → 3NENU 15:18
PROVIDERS: ADMIT Internal Medicine; ATTEND Internal Medicine

== ENCOUNTER 2020-05-11 14:28 | Observation (INO) ==
[2020-05-11 15:59] LABS: VBG HCO3 29 mEq/L (21-27); VBG PCO2 55 mmHg (41-51); VBG PH 7.34 pH Units (7.32-7.42); VBG PO2 52 mmHg (25-50)
[2020-05-11 16:11] LABS: Basophils % 0.5 %; Eosinophils # 0.1 K/mcL (0.0-0.6); Eosinophils % 2.1 %; Hemoglobin 14.3 g/dL (12.9-16.9); Immature Granulocytes % 0.3 % (0-4); Lymphocytes # 1.8 K/mcL (0.6-4.6); Lymphocytes % 28.4 %; Mean Corpuscular HGB Conc 32.5 g/dL (31.6-35.5); Mean Corpuscular Hemoglobin 28.7 pg (28.0-33.3); Mean Corpuscular Volume 88.2 fL (83.0-100.0); Mean Platelet Volume 9.9 fL (9.4-12.4); Monocytes # 0.4 K/mcL (0.0-1.3); Monocytes % 5.8 %; Neutrophils # 3.9 K/mcL (1.6-8.9); Platelet Count 293 K/mcL (140-400); Red Blood Count 4.99 M/mcL (4.19-5.50); Red Cell Distribution Width 13.2 % (11.5-14.5); Segmented Neutrophils % 62.9 %; White Blood Count 6.2 K/mcL (4.3-11.1)
[2020-05-11 16:50] LABS: Alanine Aminotransferase 49 Units/L (7-52); Albumin 4.8 g/dL (3.5-5.7); Albumin/Globulin Ratio 1.4 (1.1-2.2); Alkaline Phosphatase 68 Units/L (34-104); Aspartate Amino Transferase 28 Units/L (13-39); BUN/Creatinine Ratio 15 (6-26); Bilirubin,Total 0.5 mg/dL (0.3-1.0); Blood Urea Nitrogen 13 mg/dL (6-20); Calcium 10.6 mg/dL (8.6-10.3); Carbon Dioxide 27 mEq/L (23-29); Chloride 100 mEq/L (98-107); Globulin 3.4 g/dL (2.4-3.5); Glucose 401 mg/dL (70-105); Osmolality,Calculated 301 (280-300); Potassium 4.2 mEq/L (3.5-5.1); Sodium 137 mEq/L (136-145); Total Protein 8.2 g/dL (6.4-8.9); Troponin I < 0.03 ng/mL (< 0.04); eGFR For African Americans > 60 (> 60); eGFR For Non-African Americans > 60 (> 60)
[2020-05-11] MEDS ORDERED: Insulin LISPRO 300 UNITS/3 ML VIAL SQ STA (17:05)
[2020-05-11] MEDS ORDERED: 0.9 % Sodium Chloride 1,000 ML IV ONE (17:07)
[2020-05-11] MEDS ORDERED: D5% in Water 1,000 ML IVC PRN (17:33)
[2020-05-11] MEDS ORDERED: *HR* Dextrose 50 % in Water (Vial) 50 ML VIAL IVP PRN (17:33)
[2020-05-11] MEDS ORDERED: Dextrose Gel 15 GM/37.5 ML TUBE PO PRN ×2 (17:33)
[2020-05-11 17:50] LABS: C-Reactive Protein 35 mg/L (Less than 10)
[2020-05-11] MEDS ORDERED: *HR* HYDROcodone/Acet 5/325 mg TABLET PO PRN (17:59)
[2020-05-11] MEDS ORDERED: Naloxone 0.4 MG/ML INJ IVP PRN (17:59)
[2020-05-11] MEDS ORDERED: Acetaminophen 325 MG TABLET PO PRN (17:59)
[2020-05-11] MEDS ORDERED: traZODone 50 MG TABLET PO PRN (18:07)
[2020-05-11 18:25] LABS: Estimated Average Glucose 321 mg/dl
[2020-05-11] MEDS: Insulin LISPRO 300 UNITS/3 ML VIAL SQ SCH ×2 (19:00→20:00)
[2020-05-11] MEDS: Vancomycin 1,500 MG/265 ML IV.SOLN IVPB SCH (19:59)
[2020-05-12 01:58] LABS: Basophils % 0.5 %; Eosinophils # 0.3 K/mcL (0.0-0.6); Hematocrit 41.4 % (37.5-50.1); Hemoglobin 13.5 g/dL (12.9-16.9); Immature Granulocytes % 0.3 % (0-4); Lymphocytes % 39.6 %; Mean Corpuscular HGB Conc 32.6 g/dL (31.6-35.5); Mean Corpuscular Hemoglobin 29.7 pg (28.0-33.3); Mean Corpuscular Volume 91.2 fL (83.0-100.0); Mean Platelet Volume 9.9 fL (9.4-12.4); Monocytes # 0.5 K/mcL (0.0-1.3); Monocytes % 6.2 %; Neutrophils # 3.7 K/mcL (1.6-8.9); Platelet Count 245 K/mcL (140-400); Red Blood Count 4.54 M/mcL (4.19-5.50); Red Cell Distribution Width 13.2 % (11.5-14.5); Segmented Neutrophils % 49.4 %; White Blood Count 7.5 K/mcL (4.3-11.1)
[2020-05-12 02:17] LABS: BUN/Creatinine Ratio 22 (6-26); Blood Urea Nitrogen 18 mg/dL (6-20); Calcium 9.1 mg/dL (8.6-10.3); Carbon Dioxide 23 mEq/L (23-29); Chloride 104 mEq/L (98-107); Glucose 183 mg/dL (70-105); Magnesium 1.8 mg/dL (1.6-2.6); Osmolality,Calculated 289 (280-300); Sodium 136 mEq/L (136-145); eGFR For African Americans > 60 (> 60); eGFR For Non-African Americans > 60 (> 60)
[2020-05-12] MEDS: Vancomycin 1,500 MG/265 ML IV.SOLN IVPB SCH ×2 (06:20→17:50)
[2020-05-12] MEDS: lisinopriL 5 MG TABLET PO SCH (08:08)
[2020-05-12] MEDS: Torsemide 20 MG TABLET PO SCH (08:08)
[2020-05-12] MEDS: Insulin LISPRO 300 UNITS/3 ML VIAL SQ SCH ×4 (08:08→20:38)
[2020-05-12] MEDS ORDERED: Insulin DETEMIR 100 UNIT/ML X5UNITS SQ SCH ×2 (21:00)
[2020-05-12] MEDS ORDERED: Milk and Molasses Enema 200 ML RC ONE (23:15)
[2020-05-13] MEDS: Vancomycin 1,500 MG/265 ML IV.SOLN IVPB SCH (06:22)
[2020-05-13 08:08] VITALS: BP 111/68
[2020-05-13] MEDS: Insulin LISPRO 300 UNITS/3 ML VIAL SQ SCH ×2 (08:37→11:48)
[2020-05-13] MEDS ORDERED: Insulin DETEMIR 100 UNIT/ML X5UNITS SQ SCH (09:00)
[2020-05-13] MEDS: lisinopriL 5 MG TABLET PO SCH (09:22)
[2020-05-13] MEDS: Torsemide 20 MG TABLET PO SCH (09:29)
[2020-05-13 09:35] LABS: BUN/Creatinine Ratio 26 (6-26); Blood Urea Nitrogen 23 mg/dL (6-20); Calcium 9.6 mg/dL (8.6-10.3); Carbon Dioxide 22 mEq/L (23-29); Chloride 103 mEq/L (98-107); Glucose 236 mg/dL (70-105); Osmolality,Calculated 295 (280-300); Potassium 4.3 mEq/L (3.5-5.1); Sodium 137 mEq/L (136-145); eGFR For African Americans > 60 (> 60); eGFR For Non-African Americans > 60 (> 60)
== END 2020-05-13 17:15 | disposition home or self-care (01) ==
LOC: 3BNU 14:28 → EMEROOARM 14:28 → SUATTDRO 17:51 → 3BNU 18:41
PROVIDERS: ADMIT Internal Medicine; ATTEND Family Medicine

== ENCOUNTER 2020-08-18 13:26 | Inpatient (IN) ==
[2020-08-18] MEDS ORDERED: Ondansetron 4 MG/2 ML VIAL IVP ONE (13:56)
[2020-08-18] MEDS ORDERED: 0.9 % Sodium Chloride 1,000 ML IVC ONE (13:57)
[2020-08-18 14:37] LABS: VBG HCO3 19 mEq/L (21-27); VBG PCO2 33 mmHg (41-51); VBG PH 7.37 pH Units (7.32-7.42); VBG PO2 157 mmHg (25-50)
[2020-08-18 14:55] LABS: Basophils % 0.2 %; Eosinophils % 0.1 %; Hematocrit 37.5 % (37.5-50.1); Hemoglobin 11.5 g/dL (12.9-16.9); Immature Granulocytes % 0.4 % (0-4); Lymphocytes # 2.4 K/mcL (0.6-4.6); Lymphocytes % 12.6 %; Mean Corpuscular HGB Conc 30.7 g/dL (31.6-35.5); Mean Corpuscular Hemoglobin 27.2 pg (28.0-33.3); Mean Corpuscular Volume 88.7 fL (83.0-100.0); Monocytes # 1.2 K/mcL (0.0-1.3); Monocytes % 6.4 %; Neutrophils # 15.1 K/mcL (1.6-8.9); Platelet Count 355 K/mcL (140-400); Red Blood Count 4.23 M/mcL (4.19-5.50); Red Cell Distribution Width 13.8 % (11.5-14.5); Segmented Neutrophils % 80.3 %; White Blood Count 18.8 K/mcL (4.3-11.1)
[2020-08-18 14:57] LABS: INR 1.3; Prothrombin Time 14.8 Seconds (9.4-12.1)
[2020-08-18 14:59] LABS: Bacteria,Urine Few per hpf (None-Few); Bilirubin,Urine Negative (Negative); Blood,Urine Negative (Negative); Clarity,Urine Clear (Clear); Color,Urine Light-Yellow (Yellow); Glucose,Urine (UA) >=1000 mg/dL (Normal); Ketones,Urine >150 mg/dL (Negative); Leukocyte Esterase,Urine Negative (Negative); Mucus,Urine Few per lpf (None-Few); Nitrite,Urine Negative (Negative); Protein,Urine 30 mg/dL (Neg-Trace); RBC,Urine 0-3 per hpf (0-3); Specific Gravity,Urine > 1.030 (1.010-1.025); Urobilinogen,Urine Normal (Normal); WBC,Urine 0-3 per hpf (0-3)
[2020-08-18 15:12] LABS: Alanine Aminotransferase 27 Units/L (7-52); Albumin 4.1 g/dL (3.5-5.7); Albumin/Globulin Ratio 1.1 (1.1-2.2); Alkaline Phosphatase 95 Units/L (34-104); Amylase 22 Units/L (29-103); Aspartate Amino Transferase 18 Units/L (13-39); BUN/Creatinine Ratio 23 (6-26); Bilirubin,Direct 0.4 mg/dL (0.0-0.2); Bilirubin,Indirect 0.5 mg/dL (0.0-1.0); Bilirubin,Total 0.9 mg/dL (0.3-1.0); Blood Urea Nitrogen 21 mg/dL (6-20); Calcium 9.5 mg/dL (8.6-10.3); Carbon Dioxide 19 mEq/L (23-29); Chloride 99 mEq/L (98-107); Globulin 3.8 g/dL (2.4-3.5); Glucose 202 mg/dL (70-105); Lipase 17 Units/L (11-82); Osmolality,Calculated 287 (280-300); Potassium 4.2 mEq/L (3.5-5.1); Sodium 134 mEq/L (136-145); Total Protein 7.9 g/dL (6.4-8.9); Troponin I < 0.03 ng/mL (< 0.04); eGFR For African Americans > 60 (> 60); eGFR For Non-African Americans > 60 (> 60)
[2020-08-18] MEDS ORDERED: Isovue-370 500 ML BOTTLE IVP ONE (15:22)
[2020-08-18] MEDS ORDERED: Piperacillin/Tazobactam 3.375 GM in Water for inj. (sterile) 20 ML IVP ONE (18:14)
[2020-08-18] MEDS ORDERED: Vancomycin 1,500 MG/265 ML IV.SOLN IVPB ONE (18:14)
[2020-08-18] MEDS: 0.9 % Sodium Chloride 1,000 ML IVC SCH ×2 (18:26→19:24)
[2020-08-18] MEDS ORDERED: Ondansetron 4 MG/2 ML VIAL IVP PRN (19:41)
[2020-08-18] MEDS ORDERED: *HR* OxyCODONE Immed Rel 5 MG TABLET PO PRN (19:41)
[2020-08-18] MEDS ORDERED: Naloxone 0.4 MG/ML INJ IVP PRN (19:41)
[2020-08-18] MEDS ORDERED: Acetaminophen 325 MG TABLET PO PRN (19:41)
[2020-08-18] MEDS ORDERED: Ringers Solution, Lactated 1,000 ML IVC ONE (19:59)
[2020-08-18] MEDS ORDERED: D5% in Water 1,000 ML IVC PRN (20:12)
[2020-08-18] MEDS ORDERED: Dextrose Gel 15 GM/37.5 ML TUBE PO PRN ×2 (20:12)
[2020-08-18] MEDS ORDERED: *HR* Dextrose 50 % in Water (Vial) 50 ML VIAL IVP PRN (20:12)
[2020-08-18] MEDS ORDERED: traZODone 50 MG TABLET PO SCH (21:00)
[2020-08-18] MEDS ORDERED: Insulin DETEMIR 100 UNIT/ML X5UNITS SQ SCH (21:00)
[2020-08-18] MEDS: Insulin LISPRO 300 UNITS/3 ML VIAL SQ SCH (23:32)
[2020-08-18] MEDS: Piperacillin/Tazobactam 3.375 GM in 0.9 % Sodium Chloride Mini Bag 100 ML IVPB SCH (23:45)
[2020-08-19] MEDS: Ringers Solution, Lactated 1,000 ML IVC SCH ×2 (04:19→08:59)
[2020-08-19 06:32] LABS: Basophils % 0.2 %; Eosinophils # 0.1 K/mcL (0.0-0.6); Eosinophils % 0.7 %; Hematocrit 32.5 % (37.5-50.1); Hemoglobin 9.9 g/dL (12.9-16.9); Immature Granulocytes % 0.9 % (0-4); Lymphocytes # 2.5 K/mcL (0.6-4.6); Lymphocytes % 16.4 %; Mean Corpuscular HGB Conc 30.5 g/dL (31.6-35.5); Mean Corpuscular Hemoglobin 27.4 pg (28.0-33.3); Mean Platelet Volume 9.6 fL (9.4-12.4); Monocytes # 0.9 K/mcL (0.0-1.3); Neutrophils # 11.4 K/mcL (1.6-8.9); Platelet Count 326 K/mcL (140-400); Red Blood Count 3.61 M/mcL (4.19-5.50); Red Cell Distribution Width 13.7 % (11.5-14.5); Segmented Neutrophils % 75.8 %; White Blood Count 15.1 K/mcL (4.3-11.1)
[2020-08-19 06:43] LABS: INR 1.3; Prothrombin Time 14.8 Seconds (9.4-12.1)
[2020-08-19 06:54] LABS: Alanine Aminotransferase 28 Units/L (7-52); Albumin 3.4 g/dL (3.5-5.7); Albumin/Globulin Ratio 1.1 (1.1-2.2); Alkaline Phosphatase 82 Units/L (34-104); Aspartate Amino Transferase 29 Units/L (13-39); BUN/Creatinine Ratio 21 (6-26); Bilirubin,Total 0.6 mg/dL (0.3-1.0); Blood Urea Nitrogen 16 mg/dL (6-20); Calcium 8.3 mg/dL (8.6-10.3); Carbon Dioxide 17 mEq/L (23-29); Chloride 105 mEq/L (98-107); Globulin 3.2 g/dL (2.4-3.5); Glucose 120 mg/dL (70-105); Magnesium 2.1 mg/dL (1.6-2.6); Osmolality,Calculated 282 (280-300); Phosphorous 1.9 mg/dL (2.7-4.5); Sodium 135 mEq/L (136-145); Total Protein 6.6 g/dL (6.4-8.9); eGFR For African Americans > 60 (> 60); eGFR For Non-African Americans > 60 (> 60)
[2020-08-19] MEDS: Insulin LISPRO 300 UNITS/3 ML VIAL SQ SCH ×3 (07:41→18:26)
[2020-08-19] MEDS ORDERED: Gadolinium Contrast Agent (WT Based) IV PRN ×4 (08:25→18:23)
[2020-08-19] MEDS ORDERED: Torsemide 20 MG TABLET PO SCH (09:00)
[2020-08-19] MEDS ORDERED: lisinopriL 5 MG TABLET PO SCH (09:00)
[2020-08-19] MEDS: Piperacillin/Tazobactam 3.375 GM in 0.9 % Sodium Chloride Mini Bag 100 ML IVPB SCH ×3 (09:03→23:44)
[2020-08-19] MEDS: Vancomycin 1,500 MG/265 ML IV.SOLN IVPB SCH ×2 (09:03→18:40)
[2020-08-19 10:48] LABS: Adenovirus Not Detected (Not Detect); Bordetella Pertussis Not Detected (Not Detect); Chlamydophila pneumoniae Not Detected (Not Detect); Coronavirus 229E Not Detected (Not Detect); Coronavirus HKU1 Not Detected (Not Detect); Coronavirus NL63 Not Detected (Not Detect); Coronavirus OC43 Not Detected (Not Detect); Human Metapneumovirus Not Detected (Not Detect); Human Rhinovirus/Enterovirus Not Detected (Not Detect); Influenza A Subtype 2009 H1 Not Detected (Not Detect); Influenza B Not Detected (Not Detect); Mycoplasma pneumoniae Not Detected (Not Detect); Parainfluenza Virus 1 Not Detected (Not Detect); Parainfluenza Virus 2 Not Detected (Not Detect); Parainfluenza Virus 3 Not Detected (Not Detect); Parainfluenza Virus 4 Not Detected (Not Detect); Respiratory Syncytial Virus Not Detected (Not Detect); SARS-CoV-2 Not Detected (Not Detect)
[2020-08-19] MEDS ORDERED: *HR* FentaNYL (PF) 100 MCG/2 ML VIAL ONE ×2 (16:37→17:26)
[2020-08-19] MEDS ORDERED: Bupivacaine/EPI 1:200k 0.25% 50 ML VIAL ONE (16:37)
[2020-08-19] MEDS ORDERED: *HR* Propofol 200 MG/20 ML VIAL IVP ONE (16:37)
[2020-08-19] MEDS ORDERED: Lidocaine 1% 20 ML MDV ONE (16:37)
[2020-08-19] MEDS ORDERED: *HR* Midazolam HCl 2 MG/2 ML VIAL ONE (16:37)
[2020-08-19] MEDS ORDERED: Ondansetron 4 MG/2 ML VIAL ONE (16:39)
[2020-08-19] MEDS ORDERED: Lidocaine -MPF 2% 2 ML VIAL ONE (16:39)
[2020-08-19] MEDS ORDERED: Promethazine 6.25 MG in Water for inj. (sterile) 20 ML IVPB PRN ×2 (16:42→18:23)
[2020-08-19] MEDS ORDERED: *HR* HYDROmorphone PF 0.5 MG/0.5 ML SYRINGE IVP PRN ×2 (16:42→18:23)
[2020-08-19] MEDS ORDERED: Ondansetron 4 MG/2 ML VIAL IVP PRN ×2 (16:42→18:23)
[2020-08-19] MEDS ORDERED: *HR* OxyCODONE Immed Rel 5 MG TABLET PO PRN (16:42)
[2020-08-19] MEDS ORDERED: Dexamethasone 4 MG/ML VIAL ONE (16:44)
[2020-08-19] MEDS ORDERED: Acetaminophen 325 MG TABLET PO PRN (18:23)
[2020-08-19] MEDS ORDERED: Naloxone 0.4 MG/ML INJ IVP PRN (18:23)
[2020-08-19] MEDS ORDERED: Dextrose Gel 15 GM/37.5 ML TUBE PO PRN ×2 (18:23)
[2020-08-19] MEDS ORDERED: D5% in Water 1,000 ML IVC PRN (18:23)
[2020-08-19] MEDS ORDERED: *HR* Dextrose 50 % in Water (Vial) 50 ML VIAL IVP PRN (18:23)
[2020-08-19] MEDS ORDERED: Insulin DETEMIR 100 UNIT/ML X5UNITS SQ SCH (21:00)
[2020-08-19] MEDS: traZODone 50 MG TABLET PO SCH (22:18)
[2020-08-19] MEDS: *HR* OxyCODONE Immed Rel 5 MG TABLET PO PRN (22:32)
[2020-08-20] MEDS ORDERED: Insulin LISPRO 300 UNITS/3 ML VIAL SQ SCH
[2020-08-20] MEDS: Vancomycin 1,500 MG/265 ML IV.SOLN IVPB SCH ×2 (06:26→19:56)
[2020-08-20 07:36] LABS: Basophils % 0.3 %; Hematocrit 35.2 % (37.5-50.1); Hemoglobin 10.6 g/dL (12.9-16.9); Immature Granulocytes % 0.6 % (0-4); Lymphocytes # 1.4 K/mcL (0.6-4.6); Lymphocytes % 9.5 %; Mean Corpuscular HGB Conc 30.1 g/dL (31.6-35.5); Mean Corpuscular Hemoglobin 27.3 pg (28.0-33.3); Mean Corpuscular Volume 90.7 fL (83.0-100.0); Mean Platelet Volume 9.7 fL (9.4-12.4); Monocytes # 0.6 K/mcL (0.0-1.3); Monocytes % 4.2 %; Neutrophils # 12.2 K/mcL (1.6-8.9); Platelet Count 362 K/mcL (140-400); Red Blood Count 3.88 M/mcL (4.19-5.50); Red Cell Distribution Width 13.4 % (11.5-14.5); Segmented Neutrophils % 85.4 %; White Blood Count 14.3 K/mcL (4.3-11.1)
[2020-08-20 07:40] LABS: BUN/Creatinine Ratio 24 (6-26); Blood Urea Nitrogen 21 mg/dL (6-20); Calcium 8.7 mg/dL (8.6-10.3); Carbon Dioxide 16 mEq/L (23-29); Chloride 103 mEq/L (98-107); Glucose 294 mg/dL (70-105); Osmolality,Calculated 292 (280-300); Potassium 4.7 mEq/L (3.5-5.1); Sodium 134 mEq/L (136-145); eGFR For African Americans > 60 (> 60); eGFR For Non-African Americans > 60 (> 60)
[2020-08-20] MEDS: Torsemide 20 MG TABLET PO SCH (08:42)
[2020-08-20] MEDS: lisinopriL 5 MG TABLET PO SCH (08:43)
[2020-08-20] MEDS: Insulin LISPRO 300 UNITS/3 ML VIAL SQ SCH ×4 (08:43→20:07)
[2020-08-20] MEDS: Piperacillin/Tazobactam 3.375 GM in 0.9 % Sodium Chloride Mini Bag 100 ML IVPB SCH ×3 (08:47→23:36)
[2020-08-20] MEDS: traZODone 50 MG TABLET PO SCH (20:03)
[2020-08-20] MEDS ORDERED: Insulin DETEMIR 100 UNIT/ML X5UNITS SQ SCH (21:00)
[2020-08-20] MEDS: *HR* OxyCODONE Immed Rel 5 MG TABLET PO PRN (21:44)
[2020-08-21 01:49] LABS: Basophils % 0.3 %; Eosinophils # 0.1 K/mcL (0.0-0.6); Eosinophils % 0.4 %; Hematocrit 30.8 % (37.5-50.1); Hemoglobin 9.7 g/dL (12.9-16.9); Immature Granulocytes % 0.9 % (0-4); Lymphocytes # 2.4 K/mcL (0.6-4.6); Lymphocytes % 18.4 %; Mean Corpuscular HGB Conc 31.5 g/dL (31.6-35.5); Mean Corpuscular Hemoglobin 27.1 pg (28.0-33.3); Mean Platelet Volume 9.5 fL (9.4-12.4); Monocytes # 0.8 K/mcL (0.0-1.3); Monocytes % 6.2 %; Neutrophils # 9.5 K/mcL (1.6-8.9); Platelet Count 379 K/mcL (140-400); Red Blood Count 3.58 M/mcL (4.19-5.50); Red Cell Distribution Width 13.2 % (11.5-14.5); Segmented Neutrophils % 73.8 %; White Blood Count 12.9 K/mcL (4.3-11.1)
[2020-08-21 02:10] LABS: BUN/Creatinine Ratio 26 (6-26); Blood Urea Nitrogen 21 mg/dL (6-20); Calcium 8.5 mg/dL (8.6-10.3); Carbon Dioxide 23 mEq/L (23-29); Chloride 105 mEq/L (98-107); Glucose 315 mg/dL (70-105); Osmolality,Calculated 297 (280-300); Potassium 3.9 mEq/L (3.5-5.1); Sodium 136 mEq/L (136-145); eGFR For African Americans > 60 (> 60); eGFR For Non-African Americans > 60 (> 60)
[2020-08-21] MEDS: Piperacillin/Tazobactam 3.375 GM in 0.9 % Sodium Chloride Mini Bag 100 ML IVPB SCH ×2 (08:52→16:24)
[2020-08-21] MEDS: lisinopriL 5 MG TABLET PO SCH (08:53)
[2020-08-21] MEDS: Vancomycin 1,500 MG/265 ML IV.SOLN IVPB SCH ×2 (08:53→20:33)
[2020-08-21] MEDS: Torsemide 20 MG TABLET PO SCH (08:53)
[2020-08-21] MEDS: Insulin LISPRO 300 UNITS/3 ML VIAL SQ SCH ×4 (09:11→21:34)
[2020-08-21] MEDS ORDERED: Perflutren Lipid Microsphere 1.3 ML in 0.9 % Sodium Chloride 8.7 ML IVP PRN (13:27)
[2020-08-21] MEDS ORDERED: Sennosides/Docusate Sodium TABLET PO PRN (19:53)
[2020-08-21] MEDS: traZODone 50 MG TABLET PO SCH (20:34)
[2020-08-21] MEDS: Insulin DETEMIR 100 UNIT/ML X5UNITS SQ SCH (20:34)
[2020-08-22] MEDS: Piperacillin/Tazobactam 3.375 GM in 0.9 % Sodium Chloride Mini Bag 100 ML IVPB SCH ×4 (00:51→23:42)
[2020-08-22] MEDS: *HR* OxyCODONE Immed Rel 5 MG TABLET PO PRN ×2 (02:14→19:26)
[2020-08-22] MEDS: Insulin LISPRO 300 UNITS/3 ML VIAL SQ SCH ×4 (07:46→19:59)
[2020-08-22] MEDS: Vancomycin 1,500 MG/265 ML IV.SOLN IVPB SCH ×2 (07:46→18:18)
[2020-08-22] MEDS: polyethylene glycoL 3350 17 GM POWD.PACK PO SCH (07:55)
[2020-08-22] MEDS: Sennosides/Docusate Sodium TABLET PO SCH ×2 (07:55→19:47)
[2020-08-22] MEDS: Torsemide 20 MG TABLET PO SCH (07:56)
[2020-08-22] MEDS: lisinopriL 5 MG TABLET PO SCH (07:57)
[2020-08-22] MEDS: Insulin DETEMIR 100 UNIT/ML X5UNITS SQ SCH ×2 (08:13→19:48)
[2020-08-22 08:39] LABS: Hematocrit 35.7 % (37.5-50.1); Mean Corpuscular HGB Conc 31.7 g/dL (31.6-35.5); Mean Corpuscular Hemoglobin 27.6 pg (28.0-33.3); Mean Corpuscular Volume 87.1 fL (83.0-100.0); Mean Platelet Volume 9.3 fL (9.4-12.4); Platelet Count 454 K/mcL (140-400); Red Cell Distribution Width 13.3 % (11.5-14.5); White Blood Count 10.4 K/mcL (4.3-11.1)
[2020-08-22 08:44] LABS: Hemoglobin 11.3 g/dL (12.9-16.9)
[2020-08-22 08:58] LABS: BUN/Creatinine Ratio 19 (6-26); Blood Urea Nitrogen 16 mg/dL (6-20); Carbon Dioxide 28 mEq/L (23-29); Chloride 103 mEq/L (98-107); Glucose 180 mg/dL (70-105); Osmolality,Calculated 294 (280-300); Potassium 3.5 mEq/L (3.5-5.1); Sodium 139 mEq/L (136-145); eGFR For African Americans > 60 (> 60); eGFR For Non-African Americans > 60 (> 60)
[2020-08-22] MEDS: traZODone 50 MG TABLET PO SCH (19:47)
[2020-08-23] MEDS: Vancomycin 1,500 MG/265 ML IV.SOLN IVPB SCH (05:49)
[2020-08-23 06:14] LABS: Hematocrit 33.9 % (37.5-50.1); Hemoglobin 10.6 g/dL (12.9-16.9); Mean Corpuscular HGB Conc 31.3 g/dL (31.6-35.5); Mean Corpuscular Hemoglobin 27.2 pg (28.0-33.3); Mean Corpuscular Volume 87.1 fL (83.0-100.0); Mean Platelet Volume 9.3 fL (9.4-12.4); Platelet Count 449 K/mcL (140-400); Red Blood Count 3.89 M/mcL (4.19-5.50); Red Cell Distribution Width 13.5 % (11.5-14.5); White Blood Count 11.1 K/mcL (4.3-11.1)
[2020-08-23 06:22] LABS: BUN/Creatinine Ratio 15 (6-26); Blood Urea Nitrogen 21 mg/dL (6-20); Calcium 8.8 mg/dL (8.6-10.3); Carbon Dioxide 27 mEq/L (23-29); Chloride 104 mEq/L (98-107); Glucose 314 mg/dL (70-105); Osmolality,Calculated 299 (280-300); Sodium 137 mEq/L (136-145); eGFR For African Americans > 60 (> 60); eGFR For Non-African Americans 57 (> 60)
[2020-08-23] MEDS: Sennosides/Docusate Sodium TABLET PO SCH (07:56)
[2020-08-23] MEDS: polyethylene glycoL 3350 17 GM POWD.PACK PO SCH (07:56)
[2020-08-23] MEDS: Torsemide 20 MG TABLET PO SCH (07:56)
[2020-08-23] MEDS: lisinopriL 5 MG TABLET PO SCH (07:56)
[2020-08-23] MEDS: Insulin DETEMIR 100 UNIT/ML X5UNITS SQ SCH (07:57)
[2020-08-23] MEDS: Piperacillin/Tazobactam 3.375 GM in 0.9 % Sodium Chloride Mini Bag 100 ML IVPB SCH (07:57)
[2020-08-23] MEDS: Insulin LISPRO 300 UNITS/3 ML VIAL SQ SCH ×2 (07:58→11:56)
[2020-08-23] MEDS ORDERED: 0.9 % Sodium Chloride 1,000 ML IVC SCH (08:15)
[2020-08-23] MEDS ORDERED: Ondansetron 4 MG/2 ML VIAL IVP PRN (10:09)
[2020-08-23 11:35] VITALS: BP 131/74
== END 2020-08-23 15:10 | disposition left against medical advice (07) | DRG 710 ==
LOC: EMEROOARM 13:26 → 3ANU 13:26
PROVIDERS: ADMIT Internal Medicine; ATTEND Internal Medicine

== ENCOUNTER 2020-09-03 12:09 | Inpatient (IN) ==
[2020-09-03] MEDS ORDERED: Piperacillin/Tazobactam 3.375 GM in 0.9 % Sodium Chloride Mini Bag 100 ML IVPB ONE (12:55)
[2020-09-03] MEDS ORDERED: Vancomycin 1,500 MG/265 ML IV.SOLN IVPB ONE (12:55)
[2020-09-03] MEDS ORDERED: Cefepime HCl 1,000 MG in 0.9 % Sodium Chloride Mini Bag 100 ML IVPB STA (12:59)
[2020-09-03 13:28] LABS: Basophils % 0.5 %; Eosinophils # 0.1 K/mcL (0.0-0.6); Eosinophils % 1.3 %; Hematocrit 34.2 % (37.5-50.1); Hemoglobin 10.5 g/dL (12.9-16.9); Immature Granulocytes % 0.2 % (0-4); Lymphocytes # 2.1 K/mcL (0.6-4.6); Lymphocytes % 25.7 %; Mean Corpuscular HGB Conc 30.7 g/dL (31.6-35.5); Mean Corpuscular Hemoglobin 26.4 pg (28.0-33.3); Mean Corpuscular Volume 86.1 fL (83.0-100.0); Mean Platelet Volume 9.8 fL (9.4-12.4); Monocytes # 0.5 K/mcL (0.0-1.3); Monocytes % 5.8 %; Neutrophils # 5.5 K/mcL (1.6-8.9); Platelet Count 425 K/mcL (140-400); Red Blood Count 3.97 M/mcL (4.19-5.50); Red Cell Distribution Width 13.7 % (11.5-14.5); Segmented Neutrophils % 66.5 %; White Blood Count 8.3 K/mcL (4.3-11.1)
[2020-09-03 13:57] LABS: BUN/Creatinine Ratio 16 (6-26); Blood Urea Nitrogen 16 mg/dL (6-20); C-Reactive Protein 50 mg/L (Less than 10); Carbon Dioxide 22 mEq/L (23-29); Chloride 100 mEq/L (98-107); Glucose 369 mg/dL (70-105); Osmolality,Calculated 292 (280-300); Potassium 4.6 mEq/L (3.5-5.1); Sodium 133 mEq/L (136-145); eGFR For African Americans > 60 (> 60); eGFR For Non-African Americans > 60 (> 60)
[2020-09-03] MEDS ORDERED: Insulin Human Regular 10 UNIT in 0.9 % Sodium Chloride 10 ML IV ONE (14:41)
[2020-09-03] MEDS ORDERED: Naloxone 0.4 MG/ML INJ IVP PRN (14:52)
[2020-09-03] MEDS ORDERED: Acetaminophen 325 MG TABLET PO PRN (14:53)
[2020-09-03] MEDS ORDERED: Ondansetron ODT 4 MG TAB.RAPDIS SL PRN (14:53)
[2020-09-03] MEDS ORDERED: *HR* Dextrose 50 % in Water (Vial) 50 ML VIAL IVP PRN (14:55)
[2020-09-03] MEDS ORDERED: D5% in Water 1,000 ML IVC PRN (14:55)
[2020-09-03] MEDS ORDERED: Dextrose Gel 15 GM/37.5 ML TUBE PO PRN ×2 (14:55)
[2020-09-03] MEDS ORDERED: 0.9 % Sodium Chloride 1,000 ML IVC SCH (15:00)
[2020-09-03] MEDS: *HR* Heparin 5,000 UNIT/ML VIAL SQ SCH (16:49)
[2020-09-03] MEDS: Insulin LISPRO 300 UNITS/3 ML VIAL SQ SCH (16:50)
[2020-09-03] MEDS: Insulin NPH/REG 70/30 100 UNIT/ML (x5UNIT) SQ SCH (16:51)
[2020-09-03 17:28] LABS: Estimated Average Glucose 283 mg/dl
[2020-09-03] MEDS: *HR* HYDROcodone/Acet 5/325 mg TABLET PO PRN (20:46)
[2020-09-03] MEDS ORDERED: Insulin LISPRO 300 UNITS/3 ML VIAL SQ SCH (21:00)
[2020-09-03] MEDS ORDERED: traZODone 50 MG TABLET PO SCH (21:00)
[2020-09-04] MEDS: Cefepime HCl 2,000 MG in Water for inj. (sterile) 20 ML IVP SCH ×3 (01:22→23:09)
[2020-09-04] MEDS: Vancomycin 1,500 MG/265 ML IV.SOLN IVPB SCH ×2 (03:16→16:16)
[2020-09-04] MEDS: *HR* HYDROcodone/Acet 5/325 mg TABLET PO PRN ×3 (04:27→23:09)
[2020-09-04] MEDS: *HR* Heparin 5,000 UNIT/ML VIAL SQ SCH ×2 (04:32→16:42)
[2020-09-04 05:26] LABS: Basophils # 0.1 K/mcL (0.0-0.2); Basophils % 0.8 %; Eosinophils # 0.2 K/mcL (0.0-0.6); Eosinophils % 2.9 %; Immature Granulocytes % 0.2 % (0-4); Lymphocytes # 2.5 K/mcL (0.6-4.6); Lymphocytes % 39.7 %; Mean Corpuscular HGB Conc 31.3 g/dL (31.6-35.5); Mean Corpuscular Hemoglobin 27.2 pg (28.0-33.3); Mean Corpuscular Volume 87.2 fL (83.0-100.0); Mean Platelet Volume 9.8 fL (9.4-12.4); Monocytes # 0.4 K/mcL (0.0-1.3); Neutrophils # 3.1 K/mcL (1.6-8.9); Platelet Count 367 K/mcL (140-400); Red Blood Count 3.67 M/mcL (4.19-5.50); Red Cell Distribution Width 13.8 % (11.5-14.5); Segmented Neutrophils % 49.4 %; White Blood Count 6.3 K/mcL (4.3-11.1)
[2020-09-04 05:55] LABS: Magnesium 1.9 mg/dL (1.6-2.6); Phosphorous 3.7 mg/dL (2.7-4.5)
[2020-09-04 05:56] LABS: BUN/Creatinine Ratio 14 (6-26); Blood Urea Nitrogen 14 mg/dL (6-20); Carbon Dioxide 24 mEq/L (23-29); Chloride 106 mEq/L (98-107); Glucose 199 mg/dL (70-105); Osmolality,Calculated 290 (280-300); Potassium 4.6 mEq/L (3.5-5.1); Sodium 137 mEq/L (136-145); eGFR For African Americans > 60 (> 60); eGFR For Non-African Americans > 60 (> 60)
[2020-09-04] MEDS: Insulin LISPRO 300 UNITS/3 ML VIAL SQ SCH ×3 (07:49→20:42)
[2020-09-04 08:06] LABS: Albumin 3.3 g/dL (3.5-5.7); Bilirubin,Direct 0.1 mg/dL (0.0-0.2); Bilirubin,Indirect 0.3 mg/dL (0.0-1.0); Bilirubin,Total 0.4 mg/dL (0.3-1.0); Globulin 3.4 g/dL (2.4-3.5); Total Protein 6.7 g/dL (6.4-8.9)
[2020-09-04] MEDS: Insulin NPH/REG 70/30 100 UNIT/ML (x5UNIT) SQ SCH ×2 (08:09→18:25)
[2020-09-04] MEDS ORDERED: Ergocalciferol (VIT D2) 50,000 UNIT (1.25MG) CAP PO SCH (09:00)
[2020-09-04] MEDS ORDERED: lisinopriL 5 MG TABLET PO SCH (09:00)
[2020-09-04] MEDS ORDERED: Insulin LISPRO 300 UNITS/3 ML VIAL SQ SCH ×2 (12:00→18:00)
[2020-09-04] MEDS ORDERED: Vancomycin 1,000 MG, Sodium Chloride IRRigation 1,000 ML IR ONE ×2 (12:00→15:19)
[2020-09-04] MEDS ORDERED: *HR* Propofol 200 MG/20 ML VIAL IVP ONE ×2 (13:41→14:23)
[2020-09-04] MEDS ORDERED: Lidocaine -MPF 2% 2 ML VIAL ONE (13:41)
[2020-09-04] MEDS ORDERED: *HR* FentaNYL (PF) 100 MCG/2 ML VIAL ONE (13:41)
[2020-09-04] MEDS ORDERED: Bupivacaine/EPI 1:200k 0.25% 50 ML VIAL ONE (13:44)
[2020-09-04] MEDS ORDERED: D5% in Water 1,000 ML IVC PRN (15:19)
[2020-09-04] MEDS ORDERED: Acetaminophen 325 MG TABLET PO PRN (15:19)
[2020-09-04] MEDS ORDERED: Dextrose Gel 15 GM/37.5 ML TUBE PO PRN ×2 (15:19)
[2020-09-04] MEDS ORDERED: *HR* Dextrose 50 % in Water (Vial) 50 ML VIAL IVP PRN (15:19)
[2020-09-04] MEDS ORDERED: Naloxone 0.4 MG/ML INJ IVP PRN (15:19)
[2020-09-04] MEDS ORDERED: Insulin NPH/REG 70/30 100 UNIT/ML (x5UNIT) SQ SCH (17:00)
[2020-09-04] MEDS: traZODone 50 MG TABLET PO SCH (20:43)
[2020-09-05 01:45] LABS: Basophils % 0.4 %; Eosinophils # 0.2 K/mcL (0.0-0.6); Eosinophils % 1.7 %; Immature Granulocytes % 0.2 % (0-4); Lymphocytes % 32.2 %; Mean Corpuscular HGB Conc 31.3 g/dL (31.6-35.5); Mean Corpuscular Hemoglobin 27.5 pg (28.0-33.3); Mean Corpuscular Volume 88.2 fL (83.0-100.0); Mean Platelet Volume 9.4 fL (9.4-12.4); Monocytes # 0.7 K/mcL (0.0-1.3); Monocytes % 7.7 %; Neutrophils # 5.5 K/mcL (1.6-8.9); Platelet Count 368 K/mcL (140-400); Red Blood Count 3.63 M/mcL (4.19-5.50); Segmented Neutrophils % 57.8 %; White Blood Count 9.5 K/mcL (4.3-11.1)
[2020-09-05 01:46] LABS: Lymphocytes # 3.1 K/mcL (0.6-4.6)
[2020-09-05 02:03] LABS: BUN/Creatinine Ratio 14 (6-26); Blood Urea Nitrogen 16 mg/dL (6-20); Calcium 8.9 mg/dL (8.6-10.3); Carbon Dioxide 26 mEq/L (23-29); Chloride 105 mEq/L (98-107); Glucose 77 mg/dL (70-105); Osmolality,Calculated 288 (280-300); Potassium 3.9 mEq/L (3.5-5.1); Sodium 139 mEq/L (136-145); eGFR For African Americans > 60 (> 60); eGFR For Non-African Americans > 60 (> 60)
[2020-09-05] MEDS: Vancomycin 1,500 MG/265 ML IV.SOLN IVPB SCH ×2 (03:44→15:00)
[2020-09-05] MEDS: *HR* Heparin 5,000 UNIT/ML VIAL SQ SCH ×2 (04:50→16:49)
[2020-09-05] MEDS: *HR* HYDROcodone/Acet 5/325 mg TABLET PO PRN ×2 (06:39→18:05)
[2020-09-05] MEDS: Insulin LISPRO 300 UNITS/3 ML VIAL SQ SCH ×4 (07:49→20:25)
[2020-09-05] MEDS: Insulin NPH/REG 70/30 100 UNIT/ML (x5UNIT) SQ SCH ×2 (08:23→16:49)
[2020-09-05] MEDS: lisinopriL 5 MG TABLET PO SCH (08:23)
[2020-09-05] MEDS: Cefepime HCl 2,000 MG in Water for inj. (sterile) 20 ML IVP SCH (11:59)
[2020-09-05] MEDS: traZODone 50 MG TABLET PO SCH (20:26)
[2020-09-06] MEDS: *HR* HYDROcodone/Acet 5/325 mg TABLET PO PRN ×3 (01:07→21:46)
[2020-09-06] MEDS: Cefepime HCl 2,000 MG in Water for inj. (sterile) 20 ML IVP SCH ×2 (01:07→15:17)
[2020-09-06 02:16] LABS: Hematocrit 31.3 % (37.5-50.1); Hemoglobin 9.6 g/dL (12.9-16.9); Mean Corpuscular HGB Conc 30.7 g/dL (31.6-35.5); Mean Corpuscular Hemoglobin 26.7 pg (28.0-33.3); Mean Corpuscular Volume 86.9 fL (83.0-100.0); Mean Platelet Volume 9.9 fL (9.4-12.4); Platelet Count 324 K/mcL (140-400); Red Cell Distribution Width 13.8 % (11.5-14.5); White Blood Count 7.5 K/mcL (4.3-11.1)
[2020-09-06 02:31] LABS: BUN/Creatinine Ratio 15 (6-26); Blood Urea Nitrogen 15 mg/dL (6-20); Calcium 9.2 mg/dL (8.6-10.3); Carbon Dioxide 24 mEq/L (23-29); Chloride 104 mEq/L (98-107); Glucose 199 mg/dL (70-105); Osmolality,Calculated 286 (280-300); Potassium 4.2 mEq/L (3.5-5.1); Sodium 135 mEq/L (136-145); eGFR For African Americans > 60 (> 60); eGFR For Non-African Americans > 60 (> 60)
[2020-09-06] MEDS: Vancomycin 1,500 MG/265 ML IV.SOLN IVPB SCH ×2 (03:24→15:18)
[2020-09-06] MEDS: *HR* Heparin 5,000 UNIT/ML VIAL SQ SCH ×2 (05:28→17:14)
[2020-09-06] MEDS: Ondansetron ODT 4 MG TAB.RAPDIS SL PRN ×2 (07:08→21:46)
[2020-09-06] MEDS ORDERED: Insulin LISPRO 300 UNITS/3 ML VIAL SQ SCH (07:58)
[2020-09-06] MEDS: Insulin NPH/REG 70/30 100 UNIT/ML (x5UNIT) SQ SCH ×2 (08:51→17:14)
[2020-09-06] MEDS: lisinopriL 5 MG TABLET PO SCH (08:51)
[2020-09-06] MEDS: Insulin LISPRO 300 UNITS/3 ML VIAL SQ SCH ×3 (08:51→17:14)
[2020-09-06] MEDS: traZODone 50 MG TABLET PO SCH (21:47)
[2020-09-07] MEDS: Cefepime HCl 2,000 MG in Water for inj. (sterile) 20 ML IVP SCH ×2 (02:27→12:05)
[2020-09-07] MEDS: Vancomycin 1,500 MG/265 ML IV.SOLN IVPB SCH (04:37)
[2020-09-07] MEDS: *HR* Heparin 5,000 UNIT/ML VIAL SQ SCH ×2 (04:38→16:53)
[2020-09-07] MEDS: *HR* HYDROcodone/Acet 5/325 mg TABLET PO PRN ×2 (04:38→22:47)
[2020-09-07 07:25] LABS: Basophils % 0.6 %; Eosinophils # 0.3 K/mcL (0.0-0.6); Eosinophils % 4.2 %; Hematocrit 33.5 % (37.5-50.1); Hemoglobin 10.3 g/dL (12.9-16.9); Immature Granulocytes % 0.3 % (0-4); Lymphocytes # 2.3 K/mcL (0.6-4.6); Lymphocytes % 33.5 %; Mean Corpuscular HGB Conc 30.7 g/dL (31.6-35.5); Mean Corpuscular Hemoglobin 26.8 pg (28.0-33.3); Mean Platelet Volume 9.5 fL (9.4-12.4); Monocytes # 0.6 K/mcL (0.0-1.3); Monocytes % 8.2 %; Neutrophils # 3.7 K/mcL (1.6-8.9); Platelet Count 346 K/mcL (140-400); Red Blood Count 3.85 M/mcL (4.19-5.50); Segmented Neutrophils % 53.2 %; White Blood Count 6.9 K/mcL (4.3-11.1)
[2020-09-07 07:39] LABS: BUN/Creatinine Ratio 13 (6-26); Blood Urea Nitrogen 16 mg/dL (6-20); Calcium 9.8 mg/dL (8.6-10.3); Carbon Dioxide 27 mEq/L (23-29); Chloride 102 mEq/L (98-107); Glucose 298 mg/dL (70-105); Osmolality,Calculated 292 (280-300); Potassium 5.1 mEq/L (3.5-5.1); Sodium 135 mEq/L (136-145); eGFR For African Americans > 60 (> 60); eGFR For Non-African Americans > 60 (> 60)
[2020-09-07] MEDS: lisinopriL 5 MG TABLET PO SCH (08:39)
[2020-09-07] MEDS: Insulin LISPRO 300 UNITS/3 ML VIAL SQ SCH ×3 (08:39→16:53)
[2020-09-07] MEDS: Insulin NPH/REG 70/30 100 UNIT/ML (x5UNIT) SQ SCH ×2 (08:40→16:53)
[2020-09-07] MEDS ORDERED: Ergocalciferol (VIT D2) 50,000 UNIT (1.25MG) CAP PO SCH (09:00)
[2020-09-07] MEDS ORDERED: Insulin LISPRO 300 UNITS/3 ML VIAL SQ SCH (11:40)
[2020-09-07] MEDS ORDERED: 0.9 % Sodium Chloride 1,000 ML IVC ONE (13:43)
[2020-09-07] MEDS: metroNIDAZOLE 500 MG TABLET PO SCH ×2 (14:05→20:57)
[2020-09-07 16:51] LABS: BUN/Creatinine Ratio 16 (6-26); Blood Urea Nitrogen 17 mg/dL (6-20); Calcium 9.7 mg/dL (8.6-10.3); Carbon Dioxide 21 mEq/L (23-29); Chloride 104 mEq/L (98-107); Glucose 121 mg/dL (70-105); Osmolality,Calculated 281 (280-300); Potassium 5.2 mEq/L (3.5-5.1); Sodium 134 mEq/L (136-145); eGFR For African Americans > 60 (> 60); eGFR For Non-African Americans > 60 (> 60)
[2020-09-07] MEDS: traZODone 50 MG TABLET PO SCH (20:58)
[2020-09-08] MEDS: Cefepime HCl 2,000 MG in Water for inj. (sterile) 20 ML IVP SCH (01:12)
[2020-09-08 01:52] LABS: Hematocrit 30.8 % (37.5-50.1); Hemoglobin 9.6 g/dL (12.9-16.9); Mean Corpuscular HGB Conc 31.2 g/dL (31.6-35.5); Mean Corpuscular Hemoglobin 26.9 pg (28.0-33.3); Mean Corpuscular Volume 86.3 fL (83.0-100.0); Mean Platelet Volume 9.5 fL (9.4-12.4); Platelet Count 336 K/mcL (140-400); Red Blood Count 3.57 M/mcL (4.19-5.50); Red Cell Distribution Width 13.9 % (11.5-14.5); White Blood Count 8.5 K/mcL (4.3-11.1)
[2020-09-08 02:09] LABS: BUN/Creatinine Ratio 15 (6-26); Blood Urea Nitrogen 18 mg/dL (6-20); Calcium 9.1 mg/dL (8.6-10.3); Carbon Dioxide 27 mEq/L (23-29); Chloride 104 mEq/L (98-107); Glucose 152 mg/dL (70-105); Osmolality,Calculated 291 (280-300); Potassium 4.4 mEq/L (3.5-5.1); Sodium 138 mEq/L (136-145); eGFR For African Americans > 60 (> 60); eGFR For Non-African Americans > 60 (> 60)
[2020-09-08] MEDS: *HR* Heparin 5,000 UNIT/ML VIAL SQ SCH (04:18)
[2020-09-08] MEDS: metroNIDAZOLE 500 MG TABLET PO SCH (08:23)
[2020-09-08] MEDS: Insulin LISPRO 300 UNITS/3 ML VIAL SQ SCH ×3 (08:24→11:55)
[2020-09-08] MEDS: Insulin NPH/REG 70/30 100 UNIT/ML (x5UNIT) SQ SCH (08:25)
[2020-09-08 11:54] VITALS: BP 120/79
== END 2020-09-08 13:02 | disposition home or self-care (01) | DRG 314 ==
LOC: 2ANU 12:09 → EMEROOARM 12:09 → SUATTDRO 15:01 → 2ANU 15:29
PROVIDERS: ADMIT Internal Medicine; ATTEND Student in an Organized Health Care Education/Training Program

== ENCOUNTER 2020-09-15 19:33 | Inpatient (IN) ==
[2020-09-15] MEDS ORDERED: 0.9 % Sodium Chloride 1,000 ML IVC ONE (19:47)
[2020-09-15] MEDS ORDERED: Isovue-370 500 ML BOTTLE IVP ONE (20:31)
[2020-09-15] MEDS ORDERED: Ondansetron 4 MG/2 ML VIAL IVP STA (20:32)
[2020-09-15 20:36] LABS: Basophils % 0.4 %; Eosinophils # 0.1 K/mcL (0.0-0.6); Eosinophils % 1.1 %; Hematocrit 39.2 % (37.5-50.1); Hemoglobin 12.5 g/dL (12.9-16.9); Immature Granulocytes % 0.3 % (0-4); Lymphocytes # 1.8 K/mcL (0.6-4.6); Lymphocytes % 17.9 %; Mean Corpuscular HGB Conc 31.9 g/dL (31.6-35.5); Mean Corpuscular Hemoglobin 27.1 pg (28.0-33.3); Mean Platelet Volume 9.5 fL (9.4-12.4); Monocytes # 0.5 K/mcL (0.0-1.3); Monocytes % 5.2 %; Neutrophils # 7.7 K/mcL (1.6-8.9); Platelet Count 385 K/mcL (140-400); Red Blood Count 4.61 M/mcL (4.19-5.50); Red Cell Distribution Width 14.6 % (11.5-14.5); Segmented Neutrophils % 75.1 %; White Blood Count 10.3 K/mcL (4.3-11.1)
[2020-09-15 20:58] LABS: Alanine Aminotransferase 32 Units/L (7-52); Albumin 4.3 g/dL (3.5-5.7); Albumin/Globulin Ratio 1.1 (1.1-2.2); Alkaline Phosphatase 70 Units/L (34-104); Aspartate Amino Transferase 25 Units/L (13-39); BUN/Creatinine Ratio 19 (6-26); Bilirubin,Total 0.5 mg/dL (0.3-1.0); Blood Urea Nitrogen 29 mg/dL (6-20); Calcium 10.2 mg/dL (8.6-10.3); Carbon Dioxide 26 mEq/L (23-29); Chloride 96 mEq/L (98-107); Globulin 3.8 g/dL (2.4-3.5); Glucose 275 mg/dL (70-105); Lipase 154 Units/L (11-82); Osmolality,Calculated 302 (280-300); Potassium 4.4 mEq/L (3.5-5.1); Sodium 138 mEq/L (136-145); Total Protein 8.1 g/dL (6.4-8.9); Troponin I < 0.03 ng/mL (< 0.04); eGFR For African Americans > 60 (> 60); eGFR For Non-African Americans 52 (> 60)
[2020-09-15] MEDS ORDERED: Metoclopramide 10 MG/2 ML VIAL IVP STA (21:37)
[2020-09-15 22:43] LABS: Bacteria,Urine Few per hpf (None-Few); Bilirubin,Urine Negative (Negative); Blood,Urine Negative (Negative); Clarity,Urine Clear (Clear); Color,Urine Light-Yellow (Yellow); Glucose,Urine (UA) >=1000 mg/dL (Normal); Hyaline Casts,Urine Few per lpf (None Seen); Ketones,Urine 10 mg/dL (Negative); Leukocyte Esterase,Urine Negative (Negative); Mucus,Urine Few per lpf (None-Few); Nitrite,Urine Negative (Negative); Protein,Urine Trace mg/dL (Neg-Trace); RBC,Urine 0-3 per hpf (0-3); Urobilinogen,Urine Normal (Normal); WBC,Urine 0-3 per hpf (0-3)
[2020-09-15] MEDS ORDERED: Naloxone 0.4 MG/ML INJ IVP PRN (23:46)
[2020-09-15] MEDS ORDERED: D5% in Water 1,000 ML IVC PRN (23:56)
[2020-09-15] MEDS ORDERED: Dextrose Gel 15 GM/37.5 ML TUBE PO PRN ×2 (23:56)
[2020-09-15] MEDS ORDERED: *HR* Dextrose 50 % in Water (Vial) 50 ML VIAL IVP PRN (23:56)
[2020-09-16] MEDS: Ondansetron ODT 4 MG TAB.RAPDIS SL PRN ×2 (01:32→16:00)
[2020-09-16] MEDS ORDERED: Benzonatate 100 MG CAPSULE PO PRN (01:57)
[2020-09-16] MEDS ORDERED: Insulin Human Regular 10 UNIT in 0.9 % Sodium Chloride 10 ML IV ONE (01:59)
[2020-09-16] MEDS ORDERED: Metoclopramide 10 MG/2 ML VIAL IVP ONE (02:07)
[2020-09-16] MEDS: Benzonatate 100 MG CAPSULE PO PRN ×2 (02:33→18:10)
[2020-09-16] MEDS: 0.9 % Sodium Chloride 1,000 ML IVC SCH ×2 (02:41→08:45)
[2020-09-16] MEDS ORDERED: Ringers Solution, Lactated 1,000 ML IVC ONE (04:26)
[2020-09-16] MEDS: Cefepime HCl 2,000 MG in Water for inj. (sterile) 20 ML IVP SCH ×2 (04:48→17:04)
[2020-09-16 05:57] LABS: Basophils % 0.3 %; Eosinophils % 0.1 %; Hematocrit 36.6 % (37.5-50.1); Hemoglobin 11.3 g/dL (12.9-16.9); Immature Granulocytes % 0.4 % (0-4); Lymphocytes # 2.7 K/mcL (0.6-4.6); Lymphocytes % 17.1 %; Mean Corpuscular HGB Conc 30.9 g/dL (31.6-35.5); Mean Corpuscular Volume 87.6 fL (83.0-100.0); Mean Platelet Volume 9.7 fL (9.4-12.4); Monocytes # 1.1 K/mcL (0.0-1.3); Neutrophils # 11.8 K/mcL (1.6-8.9); Platelet Count 384 K/mcL (140-400); Red Blood Count 4.18 M/mcL (4.19-5.50); Red Cell Distribution Width 14.7 % (11.5-14.5); Segmented Neutrophils % 75.1 %
[2020-09-16 05:58] LABS: Basophils # 0.1 K/mcL (0.0-0.2); White Blood Count 15.7 K/mcL (4.3-11.1)
[2020-09-16 05:59] LABS: INR 1.2; Prothrombin Time 13.7 Seconds (9.4-12.1)
[2020-09-16 06:16] LABS: Calcium 9.7 mg/dL (8.6-10.3); Magnesium 2.1 mg/dL (1.6-2.6); Phosphorous 4.2 mg/dL (2.7-4.5); Potassium 4.8 mEq/L (3.5-5.1)
[2020-09-16] MEDS: Insulin LISPRO 300 UNITS/3 ML VIAL SQ SCH ×3 (08:44→16:01)
[2020-09-16] MEDS ORDERED: metroNIDAZOLE 500 MG TABLET PO SCH (09:00)
[2020-09-16] MEDS ORDERED: Scopolamine Patch 1.5 MG PATCH.TD72 TD ONE (17:26)
[2020-09-16] MEDS ORDERED: Insulin LISPRO 300 UNITS/3 ML VIAL SQ SCH (21:00)
[2020-09-17] MEDS: Acetaminophen 325 MG TABLET PO PRN ×3 (02:14→21:12)
[2020-09-17] MEDS: Ringers Solution, Lactated 1,000 ML IVC SCH ×4 (02:15→23:13)
[2020-09-17 05:12] LABS: Hematocrit 32.9 % (37.5-50.1); Hemoglobin 10.3 g/dL (12.9-16.9); Mean Corpuscular HGB Conc 31.3 g/dL (31.6-35.5); Mean Corpuscular Hemoglobin 27.5 pg (28.0-33.3); Mean Corpuscular Volume 87.7 fL (83.0-100.0); Mean Platelet Volume 9.6 fL (9.4-12.4); Platelet Count 316 K/mcL (140-400); Red Blood Count 3.75 M/mcL (4.19-5.50); Red Cell Distribution Width 14.8 % (11.5-14.5)
[2020-09-17 05:22] LABS: Alanine Aminotransferase 19 Units/L (7-52); Albumin 3.6 g/dL (3.5-5.7); Albumin/Globulin Ratio 1.1 (1.1-2.2); Alkaline Phosphatase 53 Units/L (34-104); Aspartate Amino Transferase 13 Units/L (13-39); BUN/Creatinine Ratio 21 (6-26); Bilirubin,Total 0.4 mg/dL (0.3-1.0); Blood Urea Nitrogen 23 mg/dL (6-20); Calcium 9.1 mg/dL (8.6-10.3); Carbon Dioxide 28 mEq/L (23-29); Chloride 104 mEq/L (98-107); Globulin 3.3 g/dL (2.4-3.5); Glucose 127 mg/dL (70-105); Osmolality,Calculated 295 (280-300); Potassium 4.7 mEq/L (3.5-5.1); Sodium 140 mEq/L (136-145); Total Protein 6.9 g/dL (6.4-8.9); eGFR For African Americans > 60 (> 60); eGFR For Non-African Americans > 60 (> 60)
[2020-09-17] MEDS: Cefepime HCl 2,000 MG in Water for inj. (sterile) 20 ML IVP SCH (05:53)
[2020-09-17] MEDS ORDERED: Insulin LISPRO 300 UNITS/3 ML VIAL SQ SCH (07:30)
[2020-09-17] MEDS ORDERED: lisinopriL 5 MG TABLET PO SCH (09:00)
[2020-09-17] MEDS: Insulin LISPRO 300 UNITS/3 ML VIAL SQ SCH ×2 (11:18→11:52)
[2020-09-17] MEDS: Ondansetron ODT 4 MG TAB.RAPDIS SL PRN (11:45)
[2020-09-17] MEDS ORDERED: Vancomycin 1,000 MG VIAL ONE (16:20)
[2020-09-17] MEDS ORDERED: Lidocaine 1% 20 ML MDV ONE (16:20)
[2020-09-17] MEDS ORDERED: Lidocaine -MPF 2% 2 ML VIAL ONE (16:39)
[2020-09-17] MEDS ORDERED: *HR* FentaNYL (PF) 100 MCG/2 ML VIAL ONE (16:39)
[2020-09-17] MEDS ORDERED: *HR* Midazolam HCl 2 MG/2 ML VIAL ONE (16:39)
[2020-09-17] MEDS ORDERED: *HR* Labetalol 20 MG/4 ML SYRINGE IVP PRN (16:53)
[2020-09-17] MEDS ORDERED: *HR* HYDROmorphone (PF) 1 MG/ML SYRINGE IVP PRN (16:53)
[2020-09-17] MEDS ORDERED: *HR* OxyCODONE Immed Rel 5 MG TABLET PO PRN (16:53)
[2020-09-17] MEDS ORDERED: *HR* HYDROmorphone 2 MG TABLET PO PRN (16:53)
[2020-09-17] MEDS ORDERED: Pantoprazole 40 MG VIAL IVP SCH (18:00)
[2020-09-17] MEDS ORDERED: Ondansetron ODT 4 MG TAB.RAPDIS SL PRN (18:50)
[2020-09-17] MEDS ORDERED: D5% in Water 1,000 ML IVC PRN (18:50)
[2020-09-17] MEDS ORDERED: Naloxone 0.4 MG/ML INJ IVP PRN (18:50)
[2020-09-17] MEDS ORDERED: *HR* Dextrose 50 % in Water (Vial) 50 ML VIAL IVP PRN (18:50)
[2020-09-17] MEDS ORDERED: Dextrose Gel 15 GM/37.5 ML TUBE PO PRN ×2 (18:50)
[2020-09-17] MEDS: Insulin LISPRO 300 UNITS/3 ML VIAL SUBQ SCH (21:13)
[2020-09-18] MEDS: Benzonatate 100 MG CAPSULE PO PRN ×2 (02:34→12:00)
[2020-09-18] MEDS: Pantoprazole 40 MG VIAL IVP SCH ×2 (05:28→17:30)
[2020-09-18] MEDS: Cefepime HCl 2,000 MG in Water for inj. (sterile) 20 ML IVP SCH ×2 (05:29→17:00)
[2020-09-18 07:57] LABS: Hematocrit 32.4 % (37.5-50.1); Hemoglobin 9.5 g/dL (12.9-16.9); Mean Corpuscular HGB Conc 29.3 g/dL (31.6-35.5); Mean Corpuscular Hemoglobin 26.5 pg (28.0-33.3); Mean Corpuscular Volume 90.3 fL (83.0-100.0); Platelet Count 293 K/mcL (140-400); Red Blood Count 3.59 M/mcL (4.19-5.50); Red Cell Distribution Width 14.6 % (11.5-14.5); White Blood Count 14.8 K/mcL (4.3-11.1)
[2020-09-18 08:11] LABS: Alanine Aminotransferase 15 Units/L (7-52); Albumin 3.5 g/dL (3.5-5.7); Albumin/Globulin Ratio 1.2 (1.1-2.2); Alkaline Phosphatase 58 Units/L (34-104); Aspartate Amino Transferase 14 Units/L (13-39); BUN/Creatinine Ratio 18 (6-26); Bilirubin,Total 0.4 mg/dL (0.3-1.0); Blood Urea Nitrogen 17 mg/dL (6-20); Calcium 9.1 mg/dL (8.6-10.3); Carbon Dioxide 27 mEq/L (23-29); Chloride 103 mEq/L (98-107); Glucose 157 mg/dL (70-105); Osmolality,Calculated 287 (280-300); Potassium 4.7 mEq/L (3.5-5.1); Sodium 136 mEq/L (136-145); Total Protein 6.5 g/dL (6.4-8.9); eGFR For African Americans > 60 (> 60); eGFR For Non-African Americans > 60 (> 60)
[2020-09-18] MEDS: lisinopriL 5 MG TABLET PO SCH (08:24)
[2020-09-18] MEDS: Insulin LISPRO 300 UNITS/3 ML VIAL SUBQ SCH ×4 (08:26→21:20)
[2020-09-18] MEDS: Ringers Solution, Lactated 1,000 ML IVC SCH ×2 (11:48→21:31)
[2020-09-19] MEDS: Ringers Solution, Lactated 1,000 ML IVC SCH ×2 (05:37→20:30)
[2020-09-19] MEDS: Cefepime HCl 2,000 MG in Water for inj. (sterile) 20 ML IVP SCH ×2 (05:38→17:45)
[2020-09-19] MEDS: Pantoprazole 40 MG VIAL IVP SCH ×2 (05:38→17:46)
[2020-09-19] MEDS: lisinopriL 5 MG TABLET PO SCH (09:45)
[2020-09-19] MEDS: Insulin LISPRO 300 UNITS/3 ML VIAL SUBQ SCH ×4 (09:45→20:30)
[2020-09-19 12:04] LABS: Hematocrit 31.7 % (37.5-50.1); Mean Corpuscular HGB Conc 31.5 g/dL (31.6-35.5); Mean Corpuscular Hemoglobin 27.5 pg (28.0-33.3); Mean Corpuscular Volume 87.3 fL (83.0-100.0); Mean Platelet Volume 9.7 fL (9.4-12.4); Platelet Count 295 K/mcL (140-400); Red Blood Count 3.63 M/mcL (4.19-5.50); Red Cell Distribution Width 14.2 % (11.5-14.5); White Blood Count 9.5 K/mcL (4.3-11.1)
[2020-09-19 12:26] LABS: Alanine Aminotransferase 15 Units/L (7-52); Albumin 3.5 g/dL (3.5-5.7); Albumin/Globulin Ratio 1.1 (1.1-2.2); Alkaline Phosphatase 55 Units/L (34-104); Aspartate Amino Transferase 15 Units/L (13-39); BUN/Creatinine Ratio 15 (6-26); Bilirubin,Total 0.3 mg/dL (0.3-1.0); Blood Urea Nitrogen 14 mg/dL (6-20); Calcium 9.1 mg/dL (8.6-10.3); Carbon Dioxide 26 mEq/L (23-29); Chloride 102 mEq/L (98-107); Globulin 3.1 g/dL (2.4-3.5); Glucose 264 mg/dL (70-105); Osmolality,Calculated 290 (280-300); Sodium 135 mEq/L (136-145); Total Protein 6.6 g/dL (6.4-8.9); eGFR For African Americans > 60 (> 60); eGFR For Non-African Americans > 60 (> 60)
[2020-09-19] MEDS: Benzonatate 100 MG CAPSULE PO PRN (20:32)
[2020-09-20] MEDS: Ringers Solution, Lactated 1,000 ML IVC SCH ×2 (05:20→16:01)
[2020-09-20] MEDS: Cefepime HCl 2,000 MG in Water for inj. (sterile) 20 ML IVP SCH ×2 (05:21→17:45)
[2020-09-20] MEDS: Acetaminophen 325 MG TABLET PO PRN ×2 (05:21→13:59)
[2020-09-20] MEDS: Pantoprazole 40 MG VIAL IVP SCH ×2 (05:21→17:45)
[2020-09-20] MEDS: Benzonatate 100 MG CAPSULE PO PRN ×3 (08:03→23:34)
[2020-09-20] MEDS: lisinopriL 5 MG TABLET PO SCH (08:04)
[2020-09-20] MEDS: Insulin LISPRO 300 UNITS/3 ML VIAL SUBQ SCH ×4 (08:06→20:32)
[2020-09-20 08:48] LABS: Basophils # 0.1 K/mcL (0.0-0.2); Basophils % 0.6 %; Eosinophils # 0.7 K/mcL (0.0-0.6); Eosinophils % 8.8 %; Hematocrit 32.5 % (37.5-50.1); Hemoglobin 10.2 g/dL (12.9-16.9); Immature Granulocytes % 0.4 % (0-4); Lymphocytes # 2.7 K/mcL (0.6-4.6); Lymphocytes % 34.1 %; Mean Corpuscular HGB Conc 31.4 g/dL (31.6-35.5); Mean Platelet Volume 9.9 fL (9.4-12.4); Monocytes # 0.6 K/mcL (0.0-1.3); Monocytes % 7.6 %; Neutrophils # 3.8 K/mcL (1.6-8.9); Platelet Count 320 K/mcL (140-400); Red Blood Count 3.78 M/mcL (4.19-5.50); Red Cell Distribution Width 14.2 % (11.5-14.5); Segmented Neutrophils % 48.5 %; White Blood Count 7.8 K/mcL (4.3-11.1)
[2020-09-20 09:01] LABS: BUN/Creatinine Ratio 11 (6-26); Blood Urea Nitrogen 11 mg/dL (6-20); Calcium 9.4 mg/dL (8.6-10.3); Carbon Dioxide 26 mEq/L (23-29); Chloride 102 mEq/L (98-107); Glucose 215 mg/dL (70-105); Osmolality,Calculated 288 (280-300); Potassium 4.2 mEq/L (3.5-5.1); Sodium 136 mEq/L (136-145); eGFR For African Americans > 60 (> 60); eGFR For Non-African Americans > 60 (> 60)
[2020-09-21 01:50] LABS: Basophils % 0.6 %; Eosinophils # 0.7 K/mcL (0.0-0.6); Eosinophils % 9.1 %; Hemoglobin 10.8 g/dL (12.9-16.9); Immature Granulocytes % 0.3 % (0-4); Lymphocytes # 2.1 K/mcL (0.6-4.6); Lymphocytes % 28.9 %; Mean Corpuscular HGB Conc 31.8 g/dL (31.6-35.5); Mean Corpuscular Hemoglobin 27.8 pg (28.0-33.3); Mean Corpuscular Volume 87.4 fL (83.0-100.0); Mean Platelet Volume 9.8 fL (9.4-12.4); Monocytes # 0.6 K/mcL (0.0-1.3); Monocytes % 8.6 %; Neutrophils # 3.8 K/mcL (1.6-8.9); Platelet Count 343 K/mcL (140-400); Red Blood Count 3.89 M/mcL (4.19-5.50); Red Cell Distribution Width 14.3 % (11.5-14.5); Segmented Neutrophils % 52.5 %; White Blood Count 7.2 K/mcL (4.3-11.1)
[2020-09-21 02:27] LABS: BUN/Creatinine Ratio 12 (6-26); Blood Urea Nitrogen 12 mg/dL (6-20); Calcium 9.2 mg/dL (8.6-10.3); Carbon Dioxide 25 mEq/L (23-29); Chloride 102 mEq/L (98-107); Glucose 298 mg/dL (70-105); Osmolality,Calculated 295 (280-300); Potassium 4.4 mEq/L (3.5-5.1); Sodium 137 mEq/L (136-145); eGFR For African Americans > 60 (> 60); eGFR For Non-African Americans > 60 (> 60)
[2020-09-21] MEDS: Ringers Solution, Lactated 1,000 ML IVC SCH (04:24)
[2020-09-21] MEDS: Pantoprazole 40 MG VIAL IVP SCH (04:25)
[2020-09-21] MEDS: Cefepime HCl 2,000 MG in Water for inj. (sterile) 20 ML IVP SCH (04:26)
[2020-09-21] MEDS: Insulin LISPRO 300 UNITS/3 ML VIAL SUBQ SCH ×2 (08:47→11:14)
[2020-09-21] MEDS: lisinopriL 5 MG TABLET PO SCH (08:48)
[2020-09-21 10:58] VITALS: BP 127/86
== END 2020-09-21 15:30 | disposition home health service (06) ==
LOC: 3NENU 19:33 → EMEROOARM 19:33 → SUATTDRO 23:56 → 3NENU 09-16 00:32
PROVIDERS: ADMIT Internal Medicine; ATTEND Family Medicine

== ENCOUNTER 2020-12-04 09:05 | Inpatient (IN) ==
[2020-12-04 10:39] LABS: Basophils % 0.4 %; Eosinophils # 0.3 K/mcL (0.0-0.6); Eosinophils % 5.7 %; Hematocrit 40.7 % (37.5-50.1); Immature Granulocytes % 0.4 % (0-4); Lymphocytes # 1.5 K/mcL (0.6-4.6); Lymphocytes % 29.5 %; Mean Corpuscular HGB Conc 31.9 g/dL (31.6-35.5); Mean Corpuscular Hemoglobin 27.4 pg (28.0-33.3); Mean Corpuscular Volume 85.9 fL (83.0-100.0); Mean Platelet Volume 9.7 fL (9.4-12.4); Monocytes # 0.5 K/mcL (0.0-1.3); Monocytes % 9.3 %; Neutrophils # 2.7 K/mcL (1.6-8.9); Platelet Count 307 K/mcL (140-400); Red Blood Count 4.74 M/mcL (4.19-5.50); Red Cell Distribution Width 14.2 % (11.5-14.5); Segmented Neutrophils % 54.7 %; White Blood Count 4.9 K/mcL (4.3-11.1)
[2020-12-04 10:44] LABS: BUN/Creatinine Ratio 8 (6-26); Blood Urea Nitrogen 7 mg/dL (6-20); Calcium 9.7 mg/dL (8.6-10.3); Carbon Dioxide 27 mEq/L (23-29); Chloride 105 mEq/L (98-107); Glucose 206 mg/dL (70-105); Osmolality,Calculated 294 (280-300); Potassium 3.8 mEq/L (3.5-5.1); Sodium 140 mEq/L (136-145); eGFR For African Americans > 60 (> 60); eGFR For Non-African Americans > 60 (> 60)
[2020-12-04] MEDS ORDERED: Vancomycin (wt based) 1,000 MG VIAL IV ONE (11:58)
[2020-12-04] MEDS ORDERED: Piperacillin/Tazobactam 3.375 GM in Water for inj. (sterile) 20 ML IVP ONE (11:58)
[2020-12-04] MEDS ORDERED: Vancomycin 1,750 MG/517.5 ML IV.SOLN IVPB ONE (12:02)
[2020-12-04] MEDS ORDERED: D5% in Water 1,000 ML IVC PRN (12:50)
[2020-12-04] MEDS ORDERED: Dextrose Gel 15 GM/37.5 ML TUBE PO PRN ×2 (12:50)
[2020-12-04] MEDS ORDERED: *HR* Dextrose 50 % in Water (Vial) 50 ML VIAL IVP PRN (12:50)
[2020-12-04] MEDS ORDERED: Ondansetron 4 MG/2 ML VIAL IVP PRN (12:50)
[2020-12-04] MEDS ORDERED: Acetaminophen 325 MG TABLET PO PRN (12:50)
[2020-12-04] MEDS ORDERED: Naloxone 0.4 MG/ML INJ IVP PRN (12:50)
[2020-12-04 13:00] LABS: C-Reactive Protein 17 mg/L (Less than 10)
[2020-12-04] MEDS ORDERED: Isovue-370 500 ML BOTTLE IVP ONE (13:04)
[2020-12-04] MEDS ORDERED: Gadolinium Contrast Agent (WT Based) IV PRN (13:12)
[2020-12-04 17:10] LABS: Estimated Average Glucose 381 mg/dl; Hemoglobin A1C 14.9 %
[2020-12-04] MEDS: *HR* Heparin 5,000 UNIT/ML VIAL SQ SCH (17:13)
[2020-12-04] MEDS: Insulin LISPRO 300 UNITS/3 ML VIAL SUBQ SCH ×2 (19:04→21:11)
[2020-12-04] MEDS: Piperacillin/Tazobactam 3.375 GM in 0.9 % Sodium Chloride Mini Bag 100 ML IVPB SCH (20:53)
[2020-12-04] MEDS: traZODone 50 MG TABLET PO SCH (20:53)
[2020-12-04] MEDS: *HR* HYDROcodone/Acet 5/325 mg TABLET PO PRN (21:00)
[2020-12-05] MEDS: Vancomycin 1,500 MG/265 ML IV.SOLN IVPB SCH ×2 (00:23→12:27)
[2020-12-05 02:14] LABS: Basophils % 0.5 %; Eosinophils # 0.2 K/mcL (0.0-0.6); Eosinophils % 3.6 %; Hematocrit 38.1 % (37.5-50.1); Hemoglobin 12.2 g/dL (12.9-16.9); Immature Granulocytes % 0.2 % (0-4); Lymphocytes # 2.6 K/mcL (0.6-4.6); Lymphocytes % 42.2 %; Mean Corpuscular Hemoglobin 28.1 pg (28.0-33.3); Mean Corpuscular Volume 87.8 fL (83.0-100.0); Mean Platelet Volume 10.1 fL (9.4-12.4); Monocytes # 0.5 K/mcL (0.0-1.3); Monocytes % 7.6 %; Neutrophils # 2.8 K/mcL (1.6-8.9); Platelet Count 322 K/mcL (140-400); Red Blood Count 4.34 M/mcL (4.19-5.50); Red Cell Distribution Width 14.1 % (11.5-14.5); Segmented Neutrophils % 45.9 %; White Blood Count 6.1 K/mcL (4.3-11.1)
[2020-12-05 02:29] LABS: BUN/Creatinine Ratio 11 (6-26); Blood Urea Nitrogen 10 mg/dL (6-20); Calcium 8.9 mg/dL (8.6-10.3); Carbon Dioxide 25 mEq/L (23-29); Chloride 106 mEq/L (98-107); Glucose 134 mg/dL (70-105); Osmolality,Calculated 289 (280-300); Potassium 3.9 mEq/L (3.5-5.1); Sodium 139 mEq/L (136-145); eGFR For African Americans > 60 (> 60); eGFR For Non-African Americans > 60 (> 60)
[2020-12-05] MEDS: Piperacillin/Tazobactam 3.375 GM in 0.9 % Sodium Chloride Mini Bag 100 ML IVPB SCH ×3 (03:52→19:30)
[2020-12-05] MEDS: *HR* HYDROcodone/Acet 5/325 mg TABLET PO PRN ×2 (03:57→19:47)
[2020-12-05] MEDS: *HR* Heparin 5,000 UNIT/ML VIAL SQ SCH ×2 (05:13→19:31)
[2020-12-05] MEDS: Insulin LISPRO 300 UNITS/3 ML VIAL SUBQ SCH ×4 (08:20→21:13)
[2020-12-05] MEDS: Torsemide 20 MG TABLET PO SCH (08:22)
[2020-12-05] MEDS ORDERED: lisinopriL 5 MG TABLET PO SCH (09:00)
[2020-12-05] MEDS: traZODone 50 MG TABLET PO SCH (19:47)
[2020-12-06 01:04] LABS: BUN/Creatinine Ratio 16 (6-26); Blood Urea Nitrogen 15 mg/dL (6-20); Calcium 8.8 mg/dL (8.6-10.3); Carbon Dioxide 23 mEq/L (23-29); Chloride 105 mEq/L (98-107); Glucose 197 mg/dL (70-105); Osmolality,Calculated 290 (280-300); Potassium 3.9 mEq/L (3.5-5.1); Sodium 137 mEq/L (136-145); eGFR For African Americans > 60 (> 60); eGFR For Non-African Americans > 60 (> 60)
[2020-12-06] MEDS: *HR* HYDROcodone/Acet 5/325 mg TABLET PO PRN (01:45)
[2020-12-06] MEDS: Vancomycin 1,500 MG/265 ML IV.SOLN IVPB SCH (01:52)
[2020-12-06] MEDS: Piperacillin/Tazobactam 3.375 GM in 0.9 % Sodium Chloride Mini Bag 100 ML IVPB SCH (02:53)
[2020-12-06] MEDS: *HR* Heparin 5,000 UNIT/ML VIAL SQ SCH (05:36)
[2020-12-06 07:52] VITALS: BP 84/58
[2020-12-06] MEDS: Torsemide 20 MG TABLET PO SCH (08:16)
[2020-12-06] MEDS: Insulin LISPRO 300 UNITS/3 ML VIAL SUBQ SCH (08:27)
[2020-12-06] MEDS ORDERED: levoFLOXacin 750 MG TABLET PO SCH (09:00)
[2020-12-06] MEDS ORDERED: Sulfamethoxazole/Trimeth DS 1 EACH TABLET PO SCH (09:00)
== END 2020-12-06 11:01 | disposition home health service (06) | DRG 344 ==
LOC: 3ANU 09:05 → EMEROOARM 09:05 → SUATTDRO 14:46 → 3ANU 15:53
PROVIDERS: ADMIT Internal Medicine; ATTEND Internal Medicine

== ENCOUNTER 2021-12-18 20:29 | Inpatient (IN) ==
[2021-12-18 21:47] LABS: Basophils % 0.3 %; Eosinophils # 0.1 K/mcL (0.0-0.6); Eosinophils % 0.7 %; Hematocrit 35.8 % (37.5-50.1); Hemoglobin 11.5 g/dL (12.9-16.9); Immature Granulocytes % 0.3 % (0-4); Lymphocytes # 2.3 K/mcL (0.6-4.6); Lymphocytes % 17.3 %; Mean Corpuscular HGB Conc 32.1 g/dL (31.6-35.5); Mean Corpuscular Hemoglobin 27.8 pg (28.0-33.3); Mean Corpuscular Volume 86.7 fL (83.0-100.0); Mean Platelet Volume 9.6 fL (9.4-12.4); Monocytes # 1.2 K/mcL (0.0-1.3); Neutrophils # 9.7 K/mcL (1.6-8.9); Platelet Count 398 K/mcL (140-400); Red Blood Count 4.13 M/mcL (4.19-5.50); Red Cell Distribution Width 12.8 % (11.5-14.5); Segmented Neutrophils % 72.4 %; White Blood Count 13.4 K/mcL (4.3-11.1)
[2021-12-18 22:06] LABS: BUN/Creatinine Ratio 16 (6-26); Blood Urea Nitrogen 19 mg/dL (6-20); C-Reactive Protein 223 mg/L (Less than 10); Calcium 9.6 mg/dL (8.6-10.3); Carbon Dioxide 26 mEq/L (23-29); Chloride 101 mEq/L (98-107); Glucose 214 mg/dL (70-105); Osmolality,Calculated 297 (280-300); Potassium 3.8 mEq/L (3.5-5.1); Sodium 139 mEq/L (136-145); eGFR For African Americans > 60 (> 60); eGFR For Non-African Americans > 60 (> 60)
[2021-12-18] MEDS ORDERED: Ondansetron 4 MG/2 ML VIAL IVP PRN (22:51)
[2021-12-18] MEDS ORDERED: Naloxone 0.4 MG/ML INJ IVP PRN (22:51)
[2021-12-18] MEDS ORDERED: Melatonin 3 MG TABLET PO PRN (22:51)
[2021-12-18] MEDS: 0.9 % Sodium Chloride 1,000 ML IVC SCH (23:06)
[2021-12-19] MEDS: *HR* HYDROcodone/Acet 5/325 mg TABLET PO PRN ×3 (00:05→16:39)
[2021-12-19] MEDS: 0.9 % Sodium Chloride 1,000 ML IVC SCH (01:14)
[2021-12-19] MEDS ORDERED: Dextrose 4 GM Chewable Tablets PO PRN ×2 (02:15)
[2021-12-19] MEDS ORDERED: D5% in Water 1,000 ML IVC PRN (02:15)
[2021-12-19] MEDS ORDERED: *HR* Dextrose 50 % in Water (Syg) 50 ML SYRINGE IVP PRN (02:15)
[2021-12-19 03:35] LABS: Bilirubin,Urine Negative (Negative); Blood,Urine Negative (Negative); Clarity,Urine Clear (Clear); Color,Urine Colorless (Yellow); Glucose,Urine (UA) >=1000 mg/dL (Normal); Ketones,Urine Negative (Negative); Leukocyte Esterase,Urine Negative (Negative); Mucus,Urine Few per lpf (None-Few); Nitrite,Urine Negative (Negative); Protein,Urine Negative (Neg-Trace); RBC,Urine 0-3 per hpf (0-3); Specific Gravity,Urine 1.023 (1.010-1.025); Urobilinogen,Urine Normal (Normal); WBC,Urine 0-3 per hpf (0-3)
[2021-12-19 04:51] LABS: Basophils % 0.3 %; Eosinophils % 0.3 %; Hemoglobin 10.1 g/dL (12.9-16.9); Immature Granulocytes % 0.3 % (0-4); Lymphocytes # 2.7 K/mcL (0.6-4.6); Lymphocytes % 23.5 %; Mean Corpuscular HGB Conc 32.6 g/dL (31.6-35.5); Mean Corpuscular Hemoglobin 27.9 pg (28.0-33.3); Mean Corpuscular Volume 85.6 fL (83.0-100.0); Mean Platelet Volume 9.4 fL (9.4-12.4); Monocytes % 8.2 %; Neutrophils # 7.9 K/mcL (1.6-8.9); Platelet Count 356 K/mcL (140-400); Red Blood Count 3.62 M/mcL (4.19-5.50); Red Cell Distribution Width 12.8 % (11.5-14.5); Segmented Neutrophils % 67.4 %; White Blood Count 11.7 K/mcL (4.3-11.1)
[2021-12-19 04:59] LABS: INR 1.2; Prothrombin Time 13.8 Seconds (9.4-12.1)
[2021-12-19 05:01] LABS: Activated Partial Thrombo Time 31.3 Seconds (26.0-36.0)
[2021-12-19 05:06] LABS: BUN/Creatinine Ratio 16 (6-26); Blood Urea Nitrogen 15 mg/dL (6-20); Calcium 8.7 mg/dL (8.6-10.3); Carbon Dioxide 23 mEq/L (23-29); Chloride 109 mEq/L (98-107); Glucose 100 mg/dL (70-105); Magnesium 2.1 mg/dL (1.6-2.6); Osmolality,Calculated 293 (280-300); Phosphorous 3.2 mg/dL (2.7-4.5); Potassium 3.9 mEq/L (3.5-5.1); Sodium 141 mEq/L (136-145); eGFR For African Americans > 60 (> 60); eGFR For Non-African Americans > 60 (> 60)
[2021-12-19 05:24] LABS: Ferritin 113 ng/mL (20-250); Iron < 10 mcg/dL (65-175); Transferrin 183 mg/dL (203-362)
[2021-12-19 05:30] LABS: Folate 19.3 ng/mL (3.0-16.0)
[2021-12-19] MEDS: *HR* Enoxaparin 40 MG/0.4 ML SYRINGE SQ SCH (05:35)
[2021-12-19 05:36] LABS: Estimated Average Glucose 266 mg/dl; Hemoglobin A1C 10.9 %
[2021-12-19] MEDS ORDERED: Piperacillin/Tazobactam 3.375 GM in 0.9 % Sodium Chloride Mini Bag 100 ML IVPB SCH (08:00)
[2021-12-19] MEDS ORDERED: Vancomycin 1,500 MG/265 ML IV.SOLN IVPB SCH (08:00)
[2021-12-19] MEDS ORDERED: Gadolinium Contrast Agent (WT Based) IV PRN (14:19)
[2021-12-19] MEDS: Multivit/Ca/Min/Fe/FA 1 TAB TABLET PO SCH (15:23)
[2021-12-19] MEDS: Lactobacillus 1 EACH CAP.SPRINK PO SCH ×2 (15:23→20:24)
[2021-12-19] MEDS: Cyanocobalamin (B-12) 1,000 MCG TABLET PO SCH (16:36)
[2021-12-19] MEDS: Vancomycin 1,250 MG/262.5 ML IV.SOLN IVPB SCH (16:36)
[2021-12-19] MEDS: Acetaminophen 325 MG TABLET PO PRN (20:24)
[2021-12-20 00:34] LABS: Basophils % 0.3 %; Eosinophils # 0.2 K/mcL (0.0-0.6); Eosinophils % 1.6 %; Hematocrit 29.5 % (37.5-50.1); Hemoglobin 9.5 g/dL (12.9-16.9); Immature Granulocytes % 0.3 % (0-4); Lymphocytes % 25.8 %; Mean Corpuscular HGB Conc 32.2 g/dL (31.6-35.5); Mean Corpuscular Hemoglobin 27.9 pg (28.0-33.3); Mean Corpuscular Volume 86.5 fL (83.0-100.0); Mean Platelet Volume 9.1 fL (9.4-12.4); Monocytes # 1.2 K/mcL (0.0-1.3); Neutrophils # 7.2 K/mcL (1.6-8.9); Platelet Count 329 K/mcL (140-400); Red Blood Count 3.41 M/mcL (4.19-5.50); Red Cell Distribution Width 12.8 % (11.5-14.5); White Blood Count 11.6 K/mcL (4.3-11.1)
[2021-12-20 00:53] LABS: BUN/Creatinine Ratio 17 (6-26); Blood Urea Nitrogen 16 mg/dL (6-20); Calcium 8.6 mg/dL (8.6-10.3); Carbon Dioxide 22 mEq/L (23-29); Chloride 104 mEq/L (98-107); Glucose 130 mg/dL (70-105); Osmolality,Calculated 281 (280-300); Potassium 4.1 mEq/L (3.5-5.1); Sodium 134 mEq/L (136-145); eGFR For African Americans > 60 (> 60); eGFR For Non-African Americans > 60 (> 60)
[2021-12-20] MEDS: Vancomycin 1,250 MG/262.5 ML IV.SOLN IVPB SCH ×3 (03:03→16:12)
[2021-12-20] MEDS: *HR* HYDROcodone/Acet 5/325 mg TABLET PO PRN ×4 (03:06→19:43)
[2021-12-20] MEDS: *HR* Enoxaparin 40 MG/0.4 ML SYRINGE SQ SCH (05:07)
[2021-12-20] MEDS: Acetaminophen 325 MG TABLET PO PRN (05:08)
[2021-12-20] MEDS: Lactobacillus 1 EACH CAP.SPRINK PO SCH ×2 (08:28→20:22)
[2021-12-20] MEDS: Multivit/Ca/Min/Fe/FA 1 TAB TABLET PO SCH (08:28)
[2021-12-20] MEDS: Cyanocobalamin (B-12) 1,000 MCG TABLET PO SCH (08:29)
[2021-12-20] MEDS ORDERED: GADOBUTROL 30 MMOL/30 ML VIAL IVP ONE (10:58)
[2021-12-20 15:58] LABS: Uric Acid 5.9 mg/dL (2.3-7.6)
[2021-12-20] MEDS: Vancomycin 1,500 MG/265 ML IV.SOLN IVPB SCH (16:46)
[2021-12-20] MEDS ORDERED: Colchicine 0.6 MG TABLET PO ONE (17:00)
[2021-12-20] MEDS: Insulin LISPRO 300 UNITS/3 ML VIAL SUBQ SCH (18:00)
[2021-12-20 20:10] LABS: Uric Acid 5.8 mg/dL (2.3-7.6)
[2021-12-20] MEDS ORDERED: Insulin LISPRO 300 UNITS/3 ML VIAL SUBQ SCH (21:00)
[2021-12-21] MEDS: *HR* HYDROcodone/Acet 5/325 mg TABLET PO PRN ×3 (00:02→10:18)
[2021-12-21] MEDS ORDERED: Vancomycin 1,500 MG/265 ML IV.SOLN IVPB SCH (03:00)
[2021-12-21] MEDS: Vancomycin 1,500 MG/265 ML IV.SOLN IVPB SCH (05:15)
[2021-12-21] MEDS: *HR* Enoxaparin 40 MG/0.4 ML SYRINGE SQ SCH (05:15)
[2021-12-21] MEDS ORDERED: Colchicine 0.6 MG TABLET PO SCH (09:00)
[2021-12-21] MEDS: Multivit/Ca/Min/Fe/FA 1 TAB TABLET PO SCH (10:19)
[2021-12-21] MEDS: Insulin LISPRO 300 UNITS/3 ML VIAL SUBQ SCH ×2 (10:19→12:28)
[2021-12-21] MEDS: Lactobacillus 1 EACH CAP.SPRINK PO SCH (10:19)
[2021-12-21] MEDS: Cyanocobalamin (B-12) 1,000 MCG TABLET PO SCH (10:19)
[2021-12-21] MEDS ORDERED: Ibuprofen 800 MG TABLET PO ONE (10:33)
[2021-12-21 10:51] VITALS: BP 128/74; PULSE 102; TEMP 98.8; O2SAT 98
[2021-12-21 14:26] LABS: Basophils % 0.4 %; Eosinophils # 0.3 K/mcL (0.0-0.6); Eosinophils % 3.5 %; Hematocrit 32.8 % (37.5-50.1); Hemoglobin 10.6 g/dL (12.9-16.9); Immature Granulocytes % 0.3 % (0-4); Lymphocytes # 1.7 K/mcL (0.6-4.6); Lymphocytes % 21.9 %; Mean Corpuscular HGB Conc 32.3 g/dL (31.6-35.5); Mean Corpuscular Hemoglobin 27.8 pg (28.0-33.3); Mean Corpuscular Volume 86.1 fL (83.0-100.0); Mean Platelet Volume 9.6 fL (9.4-12.4); Monocytes # 0.6 K/mcL (0.0-1.3); Monocytes % 7.6 %; Platelet Count 374 K/mcL (140-400); Red Blood Count 3.81 M/mcL (4.19-5.50); Red Cell Distribution Width 12.6 % (11.5-14.5); Segmented Neutrophils % 66.3 %; White Blood Count 7.5 K/mcL (4.3-11.1)
[2021-12-21 14:44] LABS: BUN/Creatinine Ratio 14 (6-26); Blood Urea Nitrogen 15 mg/dL (6-20); Calcium 9.5 mg/dL (8.6-10.3); Carbon Dioxide 21 mEq/L (23-29); Chloride 102 mEq/L (98-107); Glucose 308 mg/dL (70-105); Osmolality,Calculated 288 (280-300); Potassium 4.1 mEq/L (3.5-5.1); Sodium 133 mEq/L (136-145); eGFR For African Americans > 60 (> 60); eGFR For Non-African Americans > 60 (> 60)
[2021-12-21] MEDS ORDERED: cephALEXin 500 MG CAPSULE PO SCH (15:00)
== END 2021-12-21 15:59 | disposition home health service (06) | DRG 720 ==
LOC: EMEROOARM 20:29 → 4WAOSI 20:29 → SUATTDRO 22:54 → 4WAOSI 23:41
PROVIDERS: ADMIT Internal Medicine; ATTEND General Practice